=== PATIENT | male | born 1940 | race Caucasian/White ===

== ENCOUNTER 2017-07-11 09:30 | Emergency (ER) | payer OTHER ==
[~2017-07-11] VITALS: Ht 177.8 cm; Wt 99.5 kg
[~2017-07-11 09:30] MED LIST: ARIC5TAB PO; ASPI325T PO; ATOR40TA49 PO; BOTU100P IM; C-50TAB2; FIORIC PO; GLIP10TA6 PO; LASI20TA PO; LOSA50TA PO; MAGN400T19 PO; METO25 PO; NEUR600T PO; NOVO7030P2 SQ; OMEP20TA PO; PERC5TAB12 PO; SERT-132 PO; TAB-TAB PO; TRAZ300T2 PO; VITATAB11; WHIT15OI
[2017-07-11 09:40] VITALS: BP 109/58; PULSE 81; RESP 16; TEMP 97.5; O2SAT 95
[2017-07-11] MEDS ORDERED: SODIUM CHLORIDE 0.9% FLUSH 10 ML FLUSH IV FLUSH PRN (10:00)
--- NOTE | 2017-07-11 10:03 | PD ---
HPI Chief Complaint: Abdominal Pain Time Seen by Provider: 09:50 Travel History International Travel<30 days: No Contact w/Intl Traveler<30days: No Traveled to known affect area: No History of Present Illness HPI This patient complains of abdominal pain. He's had nausea and vomiting and diarrhea for 3-4 days. Location of abdominal pain is epigastrium. Severity is moderate. No alleviating factors. No exacerbating factors. Quality of the pain as a aching and cramping. Denies fever. He has no gallbladder. 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 PFSH Past Medical History Hx Anticoagulant Therapy: Yes (asa 81mg) Cardiovascular Problems: Yes (htn on meds, heart stent x 1) Diabetes: Yes (type 1) Hypertension: Yes Past Surgical History Appendectomy: Yes Cholecystectomy: Yes Coronary Stent: Yes Joint Replacement: Yes Tonsillectomy: Yes Social History Alcohol Use: Yes (OCC) Tobacco Use: No Substance Use: No Allergies-Medications (Allergen,Severity, Reaction): Coded Allergies: lisinopril (Unverified Adverse Reaction, Intermediate, COUGH, 07/11/17) Reported Meds & Prescriptions Reported Meds & Active Scripts Active Zofran (Ondansetron HCl) 4 Mg Tab 4 Mg PO Q6HR PRN Reported Lantus Inj (Insulin Glargine) 1,000 Unit/10 Ml Vial 22 Units SQ DAILY Sertraline (Sertraline HCl) 100 Mg Tab 100 Mg PO BID Omeprazole 20 Mg Tab 20 Mg PO DAILY Multivitamins (Multivitamin) 1 Each Tab.chew 1 Tab PO DAILY Mirtazapine 15 Mg Tab 15 Mg PO HS Metoprolol Tartrate 25 Mg Tab 12.5 Mg PO BID Magnesium Oxide 400 Mg Tab 400 Mg PO DAILY Losartan (Losartan Potassium) 100 Mg Tab 100 Mg PO DAILY Galantamine ER (Galantamine Hydrobromide) 16 Mg Caper 16 Mg PO DAILY Atorvastatin (Atorvastatin Calcium) 80 Mg Tab 80 Mg PO HS Aspirin EC (Aspirin) 81 Mg Tabdr 81 Mg PO DAILY Alfuzosin ER 24 HR 10 Mg Tab 10 Mg PO DAILY Review of Systems General / Constitutional: No: Fever Eyes: No: Visual changes HENT: No: Headaches Cardiovascular: No: Chest Pain or Discomfort Respiratory: No: Shortness of Breath Gastrointestinal: Positive: Nausea, Vomiting, Diarrhea, Abdominal Pain Genitourinary: No: Dysuria Musculoskeletal: No: Pain Skin: No Rash Neurologic: No: Weakness Psychiatric: No: Depression Endocrine: No: Polydipsia Hematologic/Lymphatic: No: Easy Bruising Physical Exam Narrative GENERAL: Well-nourished, well-developed patient in no apparent distress. SKIN: Focused skin assessment reveals no rash and nodules. Skin is Warm and dry. HEAD: Atraumatic. Normocephalic. EYES: Pupils equal and round. No scleral icterus. No injection or drainage. ENT: No nasal bleeding or discharge. Mucous membranes pink and moist. NECK: Trachea midline. No JVD. CARDIOVASCULAR: Regular rate and rhythm. No murmur appreciated. RESPIRATORY: No accessory muscle use. Clear to auscultation. Breath sounds equal bilaterally. GASTROINTESTINAL: Abdomen soft, mild epigastric tenderness without rebound or guarding , nondistended. Hepatic and splenic margins not palpable. MUSCULOSKELETAL: No obvious deformities. No clubbing. No cyanosis. Mild symmetric edema of the feet and lower legs . NEUROLOGICAL: Awake and alert. No obvious cranial nerve deficits. Motor grossly within normal limits. Normal speech. PSYCHIATRIC: Appropriate mood and affect; insight and judgment normal. Data Data Last Documented VS Vital Signs Date Time Temp Pulse Resp B/P (MAP) Pulse Ox O2 Delivery O2 Flow Rate FiO2 07/11/17 10:56 76 16 107/59 (75) 96 Room Air 07/11/17 09:40 97.5 Orders Orders Complete Blood Count With Diff (07/11/17 09:58) Comprehensive Metabolic Panel (07/11/17 09:58) Lipase (07/11/17 09:58) Prothrombin Time / Inr (Pt) (07/11/17 09:58) Act Partial Throm Time (Ptt) (07/11/17 09:58) Ct Abd/Pel W/O Iv Contrast (07/11/17 09:58) Iv Access Insert/Monitor (07/11/17 09:58) NPO (07/11/17 09:58) Sodium Chloride 0.9% Flush (Ns Flush) (07/11/17 10:00) Ondansetron Inj (Zofran Inj) (07/11/17 10:30) Radiology Film Requests (07/11/17 ) Labs Laboratory Tests Test 07/11/17 10:05 White Blood Count 13.9 TH/MM3 Red Blood Count 4.55 MIL/MM3 Hemoglobin 13.4 GM/DL Hematocrit 40.2 % Mean Corpuscular Volume 88.3 FL Mean Corpuscular Hemoglobin 29.5 PG Mean Corpuscular Hemoglobin Concent 33.4 % Red Cell Distribution Width 12.6 % Platelet Count 247 TH/MM3 Mean Platelet Volume 7.8 FL Neutrophils (%) (Auto) 77.5 % Lymphocytes (%) (Auto) 11.4 % Monocytes (%) (Auto) 5.4 % Eosinophils (%) (Auto) 1.9 % Basophils (%) (Auto) 3.8 % Neutrophils # (Auto) 10.7 TH/MM3 Lymphocytes # (Auto) 1.6 TH/MM3 Monocytes # (Auto) 0.8 TH/MM3 Eosinophils # (Auto) 0.3 TH/MM3 Basophils # (Auto) 0.5 TH/MM3 CBC Comment DIFF FINAL Differential Comment Prothrombin Time 11.0 SEC Prothromb Time International Ratio 1.0 RATIO Activated Partial Thromboplast Time 37.6 SEC Blood Urea Nitrogen 34 MG/DL Creatinine 3.70 MG/DL Random Glucose 163 MG/DL Total Protein 8.4 GM/DL Albumin 4.1 GM/DL Calcium Level 9.0 MG/DL Alkaline Phosphatase 192 U/L Aspartate Amino Transf (AST/SGOT) 23 U/L Alanine Aminotransferase (ALT/SGPT) 33 U/L Total Bilirubin 0.8 MG/DL Sodium Level 139 MEQ/L Potassium Level 3.6 MEQ/L Chloride Level 107 MEQ/L Carbon Dioxide Level 20.2 MEQ/L Anion Gap 12 MEQ/L Estimat Glomerular Filtration Rate 16 ML/MIN Lipase 88 U/L MDM Medical Decision Making Medical Screen Exam Complete: Yes Emergency Medical Condition: Yes Medical Record Reviewed: Yes Differential Diagnosis Differential diagnosis includes pancreatitis, biliary colic, hepatitis, GERD, peptic ulcer disease. Narrative Course I have reviewed the patient's electronic medical record. His last visit was January 2016 for chest wall contusion IV placed CBC shows minimal nonspecific leukocytosis of 13,000 metabolic profile shows renal failure which is chronic per patient. Sodium and potassium are normal LFT's are normal lipase is normal CT of abdomen and pelvis was ordered without IV contrast as he has history of chronic renal insufficiency. Patient has a soft benign nontender abdomen. He has no abdominal pain now. In fact I think abdominal pain is a very minor part of this. He mostly is complaining of vomiting and diarrhea. He is completely soft asleep when I recheck him. I suspect the CT findings of choledocholithiasis are incidental to his symptom presentation. However, I did make a CD copy of his disc and gave it to the patient. [facility] to consider things like ERCP etc. He has no pain or jaundice or fever and has soft benign nontender abdomen. I don't think he needs emergent admission for this at this time. Zofran prescribed Diagnosis Primary Impression: Nausea vomiting and diarrhea Additional Impressions: Abdominal pain Qualified Codes: R10.13 - Epigastric pain Choledocholithiasis Additional Instructions: The patient was advised to follow up with their physician and return if they worsen. Med/Other Pt SpecificInfo: Prescription(s) given Scripts Ondansetron (Zofran) 4 Mg Tab 4 MG PO Q6HR Y for NAUSEA OR VOMITING, #12 TAB 0 Refills Prov: Thomas Siegel MD 07/11/17 Disposition: 01 DISCHARGE HOME Condition: Stable Thomas Siegel MD Jul 11, 2017 10:03
[2017-07-11 10:10] LABS: AUTOMATED NEUTROPHIL # 10.7 TH/MM3 (1.8-7.7); BASOPHIL # 0.5 TH/MM3 (0-0.2); BASOPHIL % 3.8 % (0.0-2.0); EOSINOPHIL # 0.3 TH/MM3 (0-0.4); EOSINOPHIL % 1.9 % (0.0-4.0); HEMATOCRIT 40.2 % (39.0-51.0); LYMPH % 11.4 % (9.0-44.0); LYMPHOCYTE # 1.6 TH/MM3 (1.0-4.8); MEAN CELL VOLUME 88.3 FL (80.0-100.0); MEAN CORPUSCULAR HEMOGLOBIN 29.5 PG (27.0-34.0); MEAN CORPUSCULAR HGB CONC 33.4 % (32.0-36.0); MONO % 5.4 % (0.0-8.0); NEUT % 77.5 % (16.0-70.0); PLATELET COUNT 247 TH/MM3 (150-450); RED BLOOD COUNT 4.55 MIL/MM3 (4.50-5.90); RED CELL DISTRIBUTION WIDTH 12.6 % (11.6-17.2); WHITE BLOOD COUNT 13.9 TH/MM3 (4.0-11.0)
[2017-07-11 10:11] LABS: HEMO FLAGS DIFF FINAL
[2017-07-11 10:19] LABS: CHLORIDE 107 MEQ/L (98-107); POTASSIUM 3.6 MEQ/L (3.5-5.1); SODIUM (NA) 139 MEQ/L (136-145)
[2017-07-11 10:23] LABS: ANION GAP 12 MEQ/L (5-15); APTT (PATIENT) 37.6 SEC (24.3-30.1); BICARBONATE 20.2 MEQ/L (21.0-32.0); BLOOD UREA NITROGEN 34 MG/DL (7-18)
[2017-07-11 10:25] LABS: ALT (GPT) 33 U/L (12-78)
[2017-07-11 10:26] LABS: AST (GOT) 23 U/L (15-37); GLOMERULAR FILTRATION RATE 16 ML/MIN (>89)
[2017-07-11 10:27] LABS: TOTAL BILIRUBIN ADULT 0.8 MG/DL (0.2-1.0)
[2017-07-11 10:28] LABS: ALKALINE PHOSPHATASE 192 U/L (45-117)
[2017-07-11] MEDS ORDERED: ONDANSETRON HCL 4 MG/2 ML VIAL IVP ONE (10:30)
[2017-07-11] MEDS ORDERED: SERT-129 PO (10:41)
[2017-07-11] MEDS ORDERED: GALA16CA PO (10:41)
[2017-07-11] MEDS ORDERED: LOSA100T PO (10:41)
[2017-07-11] MEDS ORDERED: ATOR1TAB18 PO (10:41)
[2017-07-11] MEDS ORDERED: MAGN400T2 PO (10:41)
[2017-07-11] MEDS ORDERED: MIRTA15 PO (10:41)
[2017-07-11] MEDS ORDERED: MULT-159 PO (10:41)
[2017-07-11] MEDS ORDERED: OMEP20TA PO (10:41)
[2017-07-11] MEDS ORDERED: METO25TA3 PO (10:41)
[2017-07-11] MEDS ORDERED: ASPI81TA11 PO (10:41)
[2017-07-11] MEDS ORDERED: ALFU10TA2 PO (10:41)
[2017-07-11] MEDS ORDERED: LANTUS2P SQ (10:42)
--- NOTE | 2017-07-11 10:43 | RADRPT ---
EXAM DATE/TIME: 07/11/2017 10:16 [facility] COMPARISON: CT THORAX W/O CONTRAST, February 05, 2016, 19:19. INDICATIONS : Epigastric pain with nausea, vomiting, and diarrhea. ORAL CONTRAST: No oral contrast ingested. RADIATION DOSE: 21.24 CTDIvol (mGy) MEDICAL HISTORY : Hypertension. Cardiovascular disease Renal failure, chronic.Diabetes. SURGICAL HISTORY : Coronary artery stent. Appendectomy.Cholecystectomy. ENCOUNTER: Initial ACUITY: 4 - 6 days PAIN SCALE: 6/10 LOCATION: upper quadrant TECHNIQUE: Volumetric scanning of the abdomen and pelvis was performed. Using automated exposure control and ad justment of the mA and/or kV according to patient size, radiation dose was kept as low as reasonably achievable to obtain optimal diagnostic quality images. DICOM format image data is available electro nically for review and comparison. FINDINGS: LOWER LUNGS: There is linear density seen at the medial right lung base likely related to scarring. LIVER: There is air within the liver. It is difficult to determine if this is portal vein or biliary air wit hin the liver itself, however, there is a small focus within the common bile duct making biliary duct air much more likely. There is no pneumatosis seen in the bowel. The common bile duct is dilated at 1.9 cm. There appear to be 2 high density area seen in the distal common bile duct measuring 1.2 and 1.8 cm likely related to choledocholithiasis. No focal hepatic lesion is seen. SPLEEN: Normal size without lesion. There is a small splenule at the splenic hilum. PANCREAS: Within normal limits. KIDNEYS: Normal in size and shape. There is no mass, stone, or hydronephrosis. ADRENAL GLANDS: Within normal limits. VASCULAR: There is no aortic aneurysm. Scattered atherosclerotic calcifications are present. BOWEL/MESENTERY: There are scattered colonic diverticula. No significant inflammatory change is seen. The patient has a RIVERBOAT MASTER shunt in place with the shunt tubing in the right lower quadrant. ABDOMINAL WALL: There appears to be mesh in the right lower quadrant. RETROPERITONEUM: There is no lymphadenopathy. BLADDER: No wall thickening or mass. REPRODUCTIVE: Prostatic calcifications are present. INGUINAL: There is no lymphadenopathy or hernia. MUSCULOSKELETAL: There is degenerative change in the lumbar spine. CONCLUSION: 1. Common bile duct dilatation with 2 suspected stones in the distal common bile duct. There is also air within the liver which is almost certainly within the biliary system. 2. Scattered colonic diverticula. 3. RIVERBOAT MA[employer] shunt tubing. Gregorio Griffin MD on July 11, 2017 at 10:32 Board Certified Radiologist. This report was verified electronically.
[2017-07-11 10:56] VITALS: BP 107/59; PULSE 76; RESP 16; O2SAT 96
[2017-07-11] MEDS ORDERED: ZOFR4TAB PO (11:20)
[2017-07-11 11:56] VITALS: BP 111/60; PULSE 72; RESP 16; O2SAT 95
== END 2017-07-11 12:24 | disposition home or self-care (01) ==
LOC: PHED 09:30
DX: R11.2 Nausea with vomiting, unspecified (principal); R10.13 Epigastric pain; K80.50 Calculus of bile duct without cholangitis or cholecystitis without obstruction; R19.7 Diarrhea, unspecified; D72.829 Elevated white blood cell count, unspecified; N18.9 Chronic kidney disease, unspecified; E10.9 Type 1 diabetes mellitus without complications; Z79.4 Long term (current) use of insulin; Z79.82 Long term (current) use of aspirin; Z86.79 Personal history of other diseases of the circulatory system; Z87.820 Personal history of traumatic brain injury
CPT/HCPCS: 74176; 80053; 83690; 85025; 85610; 85730; 96374; 99285; J2405

== ENCOUNTER 2017-08-04 16:46 | Inpatient (IN) | payer OTHER ==
[~2017-08-04] VITALS: Ht 165.1 cm; Wt 99.2 kg
[~2017-08-04 16:46] MED LIST changes: +ALFU10TA2 PO; -ARIC5TAB PO; -ASPI325T PO; +ASPI81TA11 PO; +ATOR1TAB18 PO; -ATOR40TA49 PO; -BOTU100P IM; -C-50TAB2; -FIORIC PO; +GALA16CA PO; -GLIP10TA6 PO; +LANTUS2P SQ; -LASI20TA PO; +LOSA100T PO; -LOSA50TA PO; -MAGN400T19 PO; +MAGN400T2 PO; -METO25 PO; +METO25TA3 PO; +MIRTA15 PO; +MULT-159 PO; -NEUR600T PO; -NOVO7030P2 SQ; -PERC5TAB12 PO; +SERT-129 PO; -SERT-132 PO; -TAB-TAB PO; -TRAZ300T2 PO; -VITATAB11; -WHIT15OI; +ZOFR4TAB PO
[2017-08-04 17:05] VITALS: BP 118/56; PULSE 77; RESP 16; TEMP 98.5; O2SAT 98
--- NOTE | 2017-08-04 18:12 | PD ---
HPI Chief Complaint: GI Complaint Time Seen by Provider: 17:56 Travel History International Travel<30 days: No Contact w/Intl Traveler<30days: No Traveled to known affect area: No History of Present Illness HPI This 76-year-old man who presents emergency Department with nausea vomiting trouble swallowing abdominal pain diarrhea and feeling poorly. Symptoms been ongoing for month or so. He is in the emergency department on July 11. He is having abdominal pain and vomiting at that point. Labs showed some chronic kidney disease, mildly abnormal alkaline phosphatase, normal lipase. CT scan showed choledocholithiasis with previous cholecystectomy. BUN 12 that time and [facility] He's been having persistent nausea and vomiting. He describes difficulty swallowing and vomiting almost as soon as he tries to swallow with some chest discomfort. He' s also had intermittent right upper quadrant pains and pains in his left scapula. [facility] and had labs done yesterday that showed that his AST and ALT had been moderately elevated with further elevation of his alkaline phosphatase. T bili also went to 1.5 from 0.8. Given the choledocholithiasis, they discussed with her GI doctor and they're recommended to present to the emergency department for evaluation and possible ERCP. 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 "TBI" from multiple concussions playing football in the remote past Social History Alcohol Use: Yes (OCC) Tobacco Use: No (FORMER) Allergies-Medications (Allergen,Severity, Reaction): Coded Allergies: lisinopril (Unverified Allergy, Intermediate, COUGH, 08/04/17) Reported Meds & Prescriptions Reported Meds & Active Scripts Active Zofran (Ondansetron HCl) 4 Mg Tab 4 Mg PO Q6HR PRN Reported Lantus Inj (Insulin Glargine) 1,000 Unit/10 Ml Vial 22 Units SQ DAILY Sertraline (Sertraline HCl) 100 Mg Tab 100 Mg PO BID Omeprazole 20 Mg Tab 20 Mg PO DAILY Multivitamins (Multivitamin) 1 Each Tab.chew 1 Tab PO DAILY Mirtazapine 15 Mg Tab 15 Mg PO HS Metoprolol Tartrate 25 Mg Tab 12.5 Mg PO BID Magnesium Oxide 400 Mg Tab 400 Mg PO DAILY Losartan (Losartan Potassium) 100 Mg Tab 100 Mg PO DAILY Galantamine ER (Galantamine Hydrobromide) 16 Mg Caper 16 Mg PO DAILY Atorvastatin (Atorvastatin Calcium) 80 Mg Tab 80 Mg PO HS Aspirin EC (Aspirin) 81 Mg Tabdr 81 Mg PO DAILY Alfuzosin ER 24 HR 10 Mg Tab 10 Mg PO DAILY Review of Systems Except as stated in HPI: all other systems reviewed are Neg Physical Exam Narrative GENERAL: 76-year-old man, generally well-appearing, no acute distress. SKIN: Focused skin assessment warm/dry. HEAD: Atraumatic. Normocephalic. EYES: Pupils equal and round. No scleral icterus. No injection or drainage. ENT: No nasal bleeding or discharge. Mucous membranes pink and moist. NECK: Trachea midline. No JVD. CARDIOVASCULAR: Regular rate and rhythm. No murmur appreciated. RESPIRATORY: No accessory muscle use. Clear to auscultation. Breath sounds equal bilaterally. GASTROINTESTINAL: Abdomen soft, non-tender, nondistended. Hepatic and splenic margins not palpable. MUSCULOSKELETAL: Abdomen is obese and soft. No significant tenderness. No rebound or guarding. NEUROLOGICAL: Awake and alert. No obvious cranial nerve deficits. Motor grossly within normal limits. Normal speech. PSYCHIATRIC: Appropriate mood and affect; insight and judgment normal. Data Data Last Documented VS Vital Signs Date Time Temp Pulse Resp B/P (MAP) Pulse Ox O2 Delivery O2 Flow Rate FiO2 08/04/17 17:05 98.5 77 16 118/56 (76) 98 Orders Orders Complete Blood Count With Diff (08/04/17 18:17) Comprehensive Metabolic Panel (08/04/17 18:17) Iv Access Insert/Monitor (08/04/17 18:17) Admit Order (Ed Use Only) (08/04/17 ) Consult Gastroenterology (08/04/17 ) Labs Laboratory Tests Test 08/04/17 18:30 White Blood Count 9.4 TH/MM3 Red Blood Count 3.79 MIL/MM3 Hemoglobin 11.3 GM/DL Hematocrit 33.6 % Mean Corpuscular Volume 88.8 FL Mean Corpuscular Hemoglobin 29.8 PG Mean Corpuscular Hemoglobin Concent 33.5 % Red Cell Distribution Width 13.1 % Platelet Count 241 TH/MM3 Mean Platelet Volume 8.4 FL Neutrophils (%) (Auto) 72.1 % Lymphocytes (%) (Auto) 18.1 % Monocytes (%) (Auto) 5.4 % Eosinophils (%) (Auto) 3.9 % Basophils (%) (Auto) 0.5 % Neutrophils # (Auto) 6.8 TH/MM3 Lymphocytes # (Auto) 1.7 TH/MM3 Monocytes # (Auto) 0.5 TH/MM3 Eosinophils # (Auto) 0.4 TH/MM3 Basophils # (Auto) 0.0 TH/MM3 CBC Comment DIFF FINAL Differential Comment Blood Urea Nitrogen 23 MG/DL Creatinine 2.30 MG/DL Random Glucose 224 MG/DL Total Protein 7.3 GM/DL Albumin 3.1 GM/DL Calcium Level 8.7 MG/DL Alkaline Phosphatase 724 U/L Aspartate Amino Transf (AST/SGOT) 94 U/L Alanine Aminotransferase (ALT/SGPT) 108 U/L Total Bilirubin 0.8 MG/DL Sodium Level 141 MEQ/L Potassium Level 4.0 MEQ/L Chloride Level 110 MEQ/L Carbon Dioxide Level 22.7 MEQ/L Anion Gap 8 MEQ/L Estimat Glomerular Filtration Rate 28 ML/MIN [facility] Medical Decision Making Medical Screen Exam Complete: Yes Emergency Medical Condition: Yes Medical Record Reviewed: Yes Interpretation(s) Outpatient labs show labs from August 03, AST 188, ALT 131, alkaline phosphatase a 43, T bili 1.5 creatinine improved to 1.8 LABS: CBC unremarkable. Mildly elevated AST ALT and alkaline phosphatase. Total bili 0.8 Differential Diagnosis Choledocholithiasis, cholangitis, esophageal dysmotility or achalasia, other Narrative Course Medical decision making Is a 76-year-old man who presents to the emergency department with about a month and a half of nausea vomiting, loose stools, feeling poorly, some low- grade fevers yesterday, and known choledocholithiasis. Concern for need for procedure, cholangitis. He looks well and does not appear septic with infection. His vomiting immediately with swallowing almost sound suggestive of an esophageal dysmotility problem or obstruction. We'll check labs, discussed with GI, likely admission for procedure. Physician Communication Physician Communication Spoke with Dr. Moreno, recommend ERCP, transferr to the main. Diagnosis Primary Impression: Choledocholithiasis Admitting Information Admitting Physician Requests: Admit Marcelo Fox MD Aug 04, 2017 18:12
[2017-08-04 18:42] LABS: AUTOMATED NEUTROPHIL # 6.8 TH/MM3 (1.8-7.7); BASOPHIL % 0.5 % (0.0-2.0); EOSINOPHIL # 0.4 TH/MM3 (0-0.4); EOSINOPHIL % 3.9 % (0.0-4.0); HEMATOCRIT 33.6 % (39.0-51.0); HEMO FLAGS DIFF FINAL; LYMPH % 18.1 % (9.0-44.0); LYMPHOCYTE # 1.7 TH/MM3 (1.0-4.8); MEAN CELL VOLUME 88.8 FL (80.0-100.0); MEAN CORPUSCULAR HEMOGLOBIN 29.8 PG (27.0-34.0); MEAN CORPUSCULAR HGB CONC 33.5 % (32.0-36.0); MONO % 5.4 % (0.0-8.0); NEUT % 72.1 % (16.0-70.0); PLATELET COUNT 241 TH/MM3 (150-450); RED BLOOD COUNT 3.79 MIL/MM3 (4.50-5.90); RED CELL DISTRIBUTION WIDTH 13.1 % (11.6-17.2); WHITE BLOOD COUNT 9.4 TH/MM3 (4.0-11.0)
[2017-08-04 18:52] LABS: CHLORIDE 110 MEQ/L (98-107); SODIUM (NA) 141 MEQ/L (136-145)
[2017-08-04 18:56] LABS: ANION GAP 8 MEQ/L (5-15); BICARBONATE 22.7 MEQ/L (21.0-32.0); BLOOD UREA NITROGEN 23 MG/DL (7-18)
[2017-08-04 18:59] LABS: ALT (GPT) 108 U/L (12-78); AST (GOT) 94 U/L (15-37); GLOMERULAR FILTRATION RATE 28 ML/MIN (>89)
[2017-08-04 19:01] LABS: TOTAL BILIRUBIN ADULT 0.8 MG/DL (0.2-1.0)
[2017-08-04 19:02] LABS: ALKALINE PHOSPHATASE 724 U/L (45-117)
[2017-08-04 20:27] VITALS: BP 145/73; PULSE 66; RESP 18; TEMP 97.7; O2SAT 100
[2017-08-04] MEDS ORDERED: NALOXONE HCL 0.4 MG/ML AMP IV PUSH PRN (20:30)
[2017-08-04] MEDS ORDERED: SODIUM CHLORIDE 0.9% FLUSH 10 ML FLUSH IV FLUSH PRN (20:30)
[2017-08-04] MEDS ORDERED: DEXTROSE 50% IN WATER 50 ML VIAL(D50) IV PUSH PRN (20:30)
[2017-08-04] MEDS ORDERED: ONDANSETRON HCL 4 MG/2 ML VIAL IV PUSH PRN (20:30)
[2017-08-04] MEDS ORDERED: GLUCAGON 1 MG/ML VIAL OTHER PRN (20:30)
[2017-08-04] MEDS: DEXT 5%-NACL 0.45% 1000 ML INJ 1,000 ML IV SCH (22:33)
[2017-08-04 22:34] VITALS: BP 154/74; PULSE 62; RESP 20; TEMP 95.6; O2SAT 98
[2017-08-04] MEDS: HYDROmorphone HCL PF 1 MG/ML VIAL IV PUSH PRN (22:34)
[2017-08-04] MEDS: SODIUM CHLORIDE 0.9% FLUSH 10 ML FLUSH IV FLUSH SCH (22:34)
[2017-08-05] VITALS (7 sets, daily range): BP systolic 139–181; BP diastolic 63–94; PULSE 59–70; RESP 16–19; TEMP 96–97.5; O2SAT 95–99
[2017-08-05] MEDS: HYDROmorphone HCL PF 1 MG/ML VIAL IV PUSH PRN ×4 (02:52→21:38)
--- NOTE | 2017-08-05 03:18 | HHI.HP ---
[facility] [place] [facility] Admission Diagnosis Choledocholithiasis Diagnoses: Chief Complaint: n/v/d Travel History International Travel<30 Days: No Contact w/Intl Traveler <30 Da: No Traveled to Known Affected Are: No History of Present Illness Written by MARKIE Arcos acting as scribe for [Brook] on 08/05/17 at 03: 07. 76 y/o male with a history of TBI with shunt placement,HTN, CKD, Neuropathy, CAD , TIA, sleep apnea, DM, and HLD presented to the ED with complaints of nausea and vomiting. He states for the last 2 weeks he has been having nausea and vomiting with eating or drinking. He also states he is having diarrhea, denies any black or red colored stools. [facility] is a disabled [facility] and told him he had a fever, unknown how high. He does complain of chills. He also states he has been falling down a lot due to dizziness and last time his shunt was checked was January 2017. He is unsure if he is falling more than normal. He also complains of urinary frequency at times , difficulty swallowing liquids and solids (for 2 months), he has had esophageal dilation in the past. He denies any chest pain, or sob. Review of Systems Except as stated in HPI: all other systems reviewed are Neg Past Family Social History Past Medical History TBI with shunt placement HTN CKD Neuropathy DM HLD Sleep apnea Melanoma on face CAD TIA Past Surgical History CERTIFIED ANESTHESIOLOGIST ASSISTANT shunt placement Cardiac stents Right knee replacement x 4 Right rotator cuff surgery Bilateral wrist surgery Back surgery Right Bursa removal Appendectomy Reported Medications Reported Meds & Active Scripts Active Zofran (Ondansetron HCl) 4 Mg Tab 4 Mg PO Q6HR PRN Reported Lantus Inj (Insulin Glargine) 1,000 Unit/10 Ml Vial 22 Units SQ DAILY Sertraline (Sertraline HCl) 100 Mg Tab 100 Mg PO BID Omeprazole 20 Mg Tab 20 Mg PO DAILY Multivitamins (Multivitamin) 1 Each Tab.chew 1 Tab PO DAILY Mirtazapine 15 Mg Tab 15 Mg PO HS Metoprolol Tartrate 25 Mg Tab 12.5 Mg PO BID Magnesium Oxide 400 Mg Tab 400 Mg PO DAILY Losartan (Losartan Potassium) 100 Mg Tab 100 Mg PO DAILY Galantamine ER (Galantamine Hydrobromide) 16 Mg Caper 16 Mg PO DAILY Atorvastatin (Atorvastatin Calcium) 80 Mg Tab 80 Mg PO HS Aspirin EC (Aspirin) 81 Mg Tabdr 81 Mg PO DAILY Alfuzosin ER 24 HR 10 Mg Tab 10 Mg PO DAILY Allergies: Coded Allergies: lisinopril (Unverified Allergy, Intermediate, COUGH, 08/04/17) Active Ordered Medications Current Medications Medications (Trade) Dose Ordered Sig/Mino Route Start Time Stop Time Status Last Admin (NS Flush) 2 ml UNSCH PRN IV FLUSH 08/04/17 20:30 (NS Flush) 2 ml BID IV FLUSH 08/04/17 21:00 08/04/17 22:34 (Narcan Inj) 0.4 mg UNSCH PRN IV PUSH 08/04/17 20:30 (Dilaudid Pf Inj) 0.2 mg Q4H PRN IV PUSH 08/04/17 20:30 08/05/17 02:52 (Zofran Inj) 4 mg Q6HR PRN IV PUSH 08/04/17 20:30 Dextrose/Sodium Chloride 1,000 ml @ 42 mls/hr [id number] IV 08/04/17 21:00 08/04/17 22:33 (D50w (Vial) Inj) 50 ml UNSCH PRN IV PUSH 08/04/17 20:30 (Glucagon Inj) 1 mg UNSCH PRN OTHER 08/04/17 20:30 (Flu (Quadrivalent) Vaccine Inj) 0.5 ml ONCE ONCE IM 08/06/17 10:00 08/06/17 10:01 Family History Patient denies any family history. Social History Patient denies any tobacco, alcohol, and illicit drug use. Physical Exam Vital Signs Vital Signs Date Time Temp Pulse Resp B/P (MAP) Pulse Ox O2 Delivery O2 Flow Rate FiO2 08/05/17 00:00 96.5 65 16 148/67 (94) 95 08/04/17 22:34 95.6 62 20 154/74 (100) 98 08/04/17 20:27 97.7 66 18 145/73 (97) 100 Room Air 08/04/17 17:05 98.5 77 16 118/56 (76) 98 Physical Exam GENERAL: This is a well-nourished, patient in nad SKIN: No rashes, ecchymoses or lesions. Cool and dry. HEAD: Atraumatic. Normocephalic EYES: Pupils equal round and reactive. ENT: Nose without bleeding, purulent drainage or septal hematoma. Airway patent. NECK: Trachea midline. No JVD or lymphadenopathy. CARDIOVASCULAR: Regular rate and rhythm without murmurs, gallops, or rubs. RESPIRATORY: Clear to auscultation. Breath sounds equal bilaterally. No wheezes , rales, or rhonchi. GASTROINTESTINAL: Abdomen soft, RUQ and epigastric tenderness, nondistended. MUSCULOSKELETAL: Extremities without clubbing, cyanosis, or edema. No calf tenderness. NEUROLOGICAL: Awake and alert. Motor and sensory grossly within normal limits. Normal speech. Laboratory Laboratory Tests Test 08/04/17 18:30 White Blood Count 9.4 Red Blood Count 3.79 Hemoglobin 11.3 Hematocrit 33.6 Mean Corpuscular Volume 88.8 Mean Corpuscular Hemoglobin 29.8 Mean Corpuscular Hemoglobin Concent 33.5 Red Cell Distribution Width 13.1 Platelet Count 241 Mean Platelet Volume 8.4 Neutrophils (%) (Auto) 72.1 Lymphocytes (%) (Auto) 18.1 Monocytes (%) (Auto) 5.4 Eosinophils (%) (Auto) 3.9 Basophils (%) (Auto) 0.5 Neutrophils # (Auto) 6.8 Lymphocytes # (Auto) 1.7 Monocytes # (Auto) 0.5 Eosinophils # (Auto) 0.4 Basophils # (Auto) 0.0 CBC Comment DIFF FINAL Differential Comment Blood Urea Nitrogen 23 Creatinine 2.30 Random Glucose 224 Total Protein 7.3 Albumin 3.1 Calcium Level 8.7 Alkaline Phosphatase 724 Aspartate Amino Transf (AST/SGOT) 94 Alanine Aminotransferase (ALT/SGPT) 108 Total Bilirubin 0.8 Sodium Level 141 Potassium Level 4.0 Chloride Level 110 Carbon Dioxide Level 22.7 Anion Gap 8 Estimat Glomerular Filtration Rate 28 Result Diagram: 08/04/17182908/04/171829 Caprini VTE Risk Assessment Caprini VTE Risk Assessment: Mod/High Risk (score >= 2) Caprini Risk Assessment Model Point Value = 1 Point Value = 2 Point Value = 3 Point Value = 5 Age 41-60 Minor surgery BMI > 25 kg/m2 Swollen legs Varicose veins or History of unexplained or recurrent spontaneous Oral contraceptives or hormone replacement Sepsis (< 1 month) Serious lung disease, including pneumonia (< 1 month) Abnormal pulmonary function Acute myocardial infarction Congestive heart failure (< 1 month) History of inflammatory bowel disease Medical patient at bed rest Age 61-74 Arthroscopic surgery Major open surgery (> 45 min) Laparoscopic surgery (> 45 min) Malignancy Confined to bed (> 72 hours) Immobilizing plaster cast Central venous access Age >= 75 History of VTE Family history of VTE Factor V Leiden Prothrombin [id number] Lupus anticoagulant Anticardiolipin antibodies Elevated serum homocysteine Heparin-induced thrombocytopenia Other congenital or acquired thrombophilia Stroke (< 1 month) Elective arthroplasty Hip, pelvis, or leg fracture Acute spinal cord injury (< 1 month) Prophylaxis Regimen Total Risk Factor Score Risk Level Prophylaxis Regimen 0-1 Low Early ambulation 2 Moderate Order ONE of the following: *Sequential Compression Device (SCD) *Heparin 5000 units SQ BID 3-4 Higher Order ONE of the following medications: *Heparin 5000 units SQ TID *Enoxaparin/Lovenox 40 mg SQ daily (WT < 150 kg, CrCl > 30 mL/min) *Enoxaparin/Lovenox 30 mg SQ daily (WT < 150 kg, CrCl > 10-29 mL/min) *Enoxaparin/Lovenox 30 mg SQ BID (WT < 150 kg, CrCl > 30 mL/min) AND/OR *Sequential Compression Device (SCD) 5 or more Highest Order ONE of the following medications: *Heparin 5000 units SQ TID (Preferred with Epidurals) *Enoxaparin/Lovenox 40 mg SQ daily (WT < 150 kg, CrCl > 30 mL/min) *Enoxaparin/Lovenox 30 mg SQ daily (WT < 150 kg, CrCl > 10-29 mL/min) *Enoxaparin/Lovenox 30 mg SQ BID (WT < 150 kg, CrCl > 30 mL/min) AND *Sequential Compression Device (SCD) Assessment and Plan Problem List: (1) Choledocholithiasis ICD Code: K80.50 - Calculus of bile duct without cholangitis or cholecystitis without obstruction Status: Acute (2) HTN (hypertension) ICD Code: I10 - Essential (primary) hypertension Status: Chronic (3) Diabetes ICD Code: E11.9 - Type 2 diabetes mellitus without complications Status: Chronic (4) Fall ICD Code: W19.XXXA - Unspecified fall, initial encounter Status: Acute Assessment and Plan 76 y/o male with a history of TBI with shunt placement, HTN, CKD, Neuropathy, DM , BPH, and HLD presented to the ED with complaints of nausea and vomiting. Choledocholithiasis, RUQ pain, with transaminitis AST 94, ALT 108 -Consult GI, Dr. Moreno plans for ERCP in AM -Abdominal US ordered -Lipase ordered -Dilaudid IV for pain management Falls, history of CERTIFIED ANESTHESIOLOGIST ASSISTANT shunt placement at in [place] 01/2017 -CERTIFIED ANESTHESIOLOGIST ASSISTANT shunt series ordered; pt's abdominal pain is not too characteristic of CBD stone, would need to r/o shunt malposition, doubt shunt infection- pt also reports ongoing gait issues despite shunt placement in January 2017 -Will order neurology consult if shunt series is abnormal HTN, chronic -Reorder home medications, monitor vitals DM, chronic -Accu checks Ac/HS -Hold Lantus until patient is no longer npo DVT prophylaxis: SCDs GI prophylaxis: Protonix This note was transcribed by rhonda [Kiera Anthony]. I, Dr. Laura Doe personally performed the history, physical exam, and medical decision making; and confirmed the accuracy of the information in the transcribed note. Authenticated by Dr. Laura Doe on at 03:07. Discussed Condition With Patient Physician Certification 2 Midnight Certification Type: Admission for Inpatient Services Order for Inpatient Services The services are ordered in accordance with Medicare regulations or non- Medicare payer requirements, as applicable. In the case of services not specified as inpatient-only, they are appropriately provided as inpatient services in accordance with the 2-midnight benchmark. Estimated LOS (days): 2 days is the estimated time the patient will need to remain in the hospital, assuming treatment plan goals are met and no additional complications. Post-Hospital Plan: Home Problem Qualifiers (1) Fall: Qualified Codes: W19.XXXD - Unspecified fall, subsequent encounter Kiera Anthony Aug 05, 2017 03:18 Laura Doe MD Aug 05, 2017 11:15
[2017-08-05] MEDS: PANTOPRAZOLE SODIUM 40 MG VIAL IV PUSH SCH (04:16)
[2017-08-05] MEDS ORDERED: INSULIN HUMAN REGULAR 1,000 UNITS/10 ML VIAL SQ PRN (05:15)
[2017-08-05] MEDS ORDERED: CHLORHEXIDINE GLUCONATE 2 % 1 PACK (2 CLOTHS) TOPICAL PRN (05:15)
[2017-08-05] MEDS ORDERED: SODIUM CHLORID 0.9% 500 ML IV PRN (05:15)
[2017-08-05] MEDS ORDERED: POVIDONE IODINE 5% (ANTISEPSIS KIT) 4 APPLICATIONS EACH NARE PRN (05:15)
[2017-08-05 07:24] LABS: AUTOMATED NEUTROPHIL # 5.9 TH/MM3 (1.8-7.7); BASOPHIL # 0.1 TH/MM3 (0-0.2); BASOPHIL % 0.7 % (0.0-2.0); EOSINOPHIL # 0.5 TH/MM3 (0-0.4); EOSINOPHIL % 4.9 % (0.0-4.0); HEMATOCRIT 33.4 % (39.0-51.0); HEMO FLAGS DIFF FINAL; LYMPH % 25.6 % (9.0-44.0); LYMPHOCYTE # 2.5 TH/MM3 (1.0-4.8); MEAN CELL VOLUME 89.9 FL (80.0-100.0); MEAN CORPUSCULAR HEMOGLOBIN 30.5 PG (27.0-34.0); MEAN CORPUSCULAR HGB CONC 33.9 % (32.0-36.0); MONO % 7.4 % (0.0-8.0); NEUT % 61.4 % (16.0-70.0); PLATELET COUNT 218 TH/MM3 (150-450); RED BLOOD COUNT 3.72 MIL/MM3 (4.50-5.90); RED CELL DISTRIBUTION WIDTH 13.9 % (11.6-17.2); WHITE BLOOD COUNT 9.6 TH/MM3 (4.0-11.0)
[2017-08-05 07:43] LABS: ANION GAP 7 MEQ/L (5-15); BLOOD UREA NITROGEN 19 MG/DL (7-18); CHLORIDE 113 MEQ/L (98-107); GLOMERULAR FILTRATION RATE 33 ML/MIN (>89); POTASSIUM 4.4 MEQ/L (3.5-5.1); SODIUM (NA) 144 MEQ/L (136-145)
[2017-08-05 07:45] LABS: AST (GOT) 73 U/L (15-37)
[2017-08-05 07:50] LABS: ALKALINE PHOSPHATASE 694 U/L (45-117); ALT (GPT) 90 U/L (12-78); TOTAL BILIRUBIN ADULT 0.6 MG/DL (0.2-1.0)
[2017-08-05] MEDS: ASPIRIN EC 81 MG TABEC PO SCH (08:23)
[2017-08-05] MEDS ORDERED: PILL SPLITTER OTHER PRN (08:45)
[2017-08-05] MEDS: SODIUM CHLORIDE 0.9% FLUSH 10 ML FLUSH IV FLUSH SCH ×2 (09:00→21:00)
[2017-08-05] MEDS: MAGNESIUM OXIDE 400 MG TAB PO SCH (09:00)
[2017-08-05] MEDS: VITAMIN B CMPLX/VITC/FOLIC AC CAP PO SCH (09:00)
--- NOTE | 2017-08-05 09:43 | RADRPT ---
EXAM DATE/TIME: 08/05/2017 08:03 [facility] COMPARISON: No previous studies available for comparison. INDICATIONS : Abdominal pain. MEDICAL HISTORY : Hypercholesterolemia. Arthritis. CVA. Head trauma. Neuropathy. Coronary artery disease. HTN. Stage III renal failure. Skin cancer. Diabetes. Depression. Anticoagulant therapy, Apsirin 81mg. SURGICAL HISTORY : Tonsillectomy. Coronary artery stent. Cholecystectomy. Eyelid surgery. Brain shunt. Appendectomy. Rig ht knee replacement. ENCOUNTER: Initial ACUITY: 1 day PAIN SCORE: 4/10 LOCATION: Abdomen. MEASUREMENTS: LIVER: 14.7 cm length COMMON DUCT: 14 mm RIGHT KIDNEY: 9.6 x 5.6 x 6.0 cm LEFT KIDNEY: 10.8 x 5.3 x 5.7 cm SPLEEN: 9.9 cm length AORTA: 2.0cm maximal FINDINGS: LIVER: Normal echotexture without focal lesion or ductal dilatation. COMMON DUCT: Distended without evidence of discrete filling defect. GALLBLADDER: Status post cholecystectomy PANCREAS: Poorly visualized. RIGHT KIDNEY: No hydronephrosis, stone or mass. LEFT KIDNEY: No hydronephrosis, stone or mass. SPLEEN: No focal lesion. AORTA: Non aneurysmal. IVC: Within normal limits. CONCLUSION: 1. Dilated common bile duct and common hepatic duct without discrete filling defect. 2. Status post cholecystectomy. 3. Nonvisualization of the pancreas. 4. No other significant abnormality. Aramis Ram MD on August 05, 2017 at 9:38 Board Certified Radiologist. This report was verified electronically.
--- NOTE | 2017-08-05 09:47 | PD.CONS ---
HPI History of Present Illness This is a 76 year old male who was referred to the emergency room for fever, chills, abdominal pain with nausea, and vomiting and suspected choledocholithiasis. He is s/p cholecystectomy about two years ago. For the past 2 months, he has been having intermittent RUQ pain, described as a sharp pain, that radiates to his epigastric area and LUQ. He has associated nausea/ vomiting with nonbloody emesis, bloating, and occasional heartburn. He has also had intermittent fever and chills with this. His symptoms are related to food intake and therefore he has not been eating as much for fear of the pain. He has lost about 4 lbs. He has alternating constipation and diarrhea, but states this is chronic and he has always been like this. He can't remember his last colonoscopy, but states he is in the process of getting scheduled for one through the [place]. He was seen in the ER on 07/11/17 for these symptoms and found to have leukocytosis with WBC 13.9 and elevated alkaline phosphatase. CT scan abdomen and pelvis without iv contrast (07/11/17)---> Common bile duct dilatation with 2 suspected stones in the distal common bile duct. There is also air within the liver which almost certainly within the biliary system, scattered colonic diverticular, PHYSICS PROFESSOR shut tubing. He was discharged with instructions to follow up with GI. The patient has continued to have intermittent chills, fevers, nausea, vomiting, and abdominal pain. He had called the [facility] yesterday with subjective fever and chills and he was instructed to come to the emergency room for possible ERCP. (Deloris Black) PFSH Past Medical History Traumatic brain injury with shunt placement HTN CKD Neuropathy DM Hyperlipidemia Sleep apnea Melanoma on face CAD TIA Cholelithiasis/suspected choledocholithiasis Past Surgical History PHYSICS PROFESSOR shunt placement Cardiac stents Right knee replacement x 4 Right rotator cuff surgery Bilateral wrist surgery Back surgery Right Bursa removal Appendectomy Colonoscopy Cholecystectomy (Deloris Black) Coded Allergies: lisinopril (Unverified Allergy, Intermediate, COUGH, 08/04/17) Medications Allergies Coded Allergies Type Severity Reaction Last Updated Verified lisinopril Allergy Intermediate COUGH 08/04/17 No Active Scripts Medications Dose Route/Sig Max Daily Dose Days Date Category Zofran (Ondansetron HCl) 4 Mg Tab 4 Mg PO Q6HR PRN 07/11/17 Rx Lantus Inj (Insulin Glargine) 1,000 Unit/10 Ml Vial 22 Units SQ DAILY 07/11/17 Reported Sertraline (Sertraline HCl) 100 Mg Tab 100 Mg PO BID 07/11/17 Reported Omeprazole 20 Mg Tab 20 Mg PO DAILY 07/11/17 Reported Multivitamins (Multivitamin) 1 Each Tab.chew 1 Tab PO DAILY 07/11/17 Reported Mirtazapine 15 Mg Tab 15 Mg PO HS 07/11/17 Reported Metoprolol Tartrate 25 Mg Tab 12.5 Mg PO BID 07/11/17 Reported Magnesium Oxide 400 Mg Tab 400 Mg PO DAILY 07/11/17 Reported Losartan (Losartan Potassium) 100 Mg Tab 100 Mg PO DAILY 07/11/17 Reported Galantamine ER (Galantamine Hydrobromide) 16 Mg Caper 16 Mg PO DAILY 07/11/17 Reported Atorvastatin (Atorvastatin Calcium) 80 Mg Tab 80 Mg PO HS 07/11/17 Reported Aspirin EC (Aspirin) 81 Mg Tabdr 81 Mg PO DAILY 07/11/17 Reported Alfuzosin ER 24 HR 10 Mg Tab 10 Mg PO DAILY 07/11/17 Reported Family History Patient denies any family history. Social History Patient denies any tobacco Past ETOH use, none currently No illicit drug use. (Deloris Black) Review of Systems Constitutional: COMPLAINS OF: Fatigue, Fever, Weight loss, Chills, Change in appetite Respiratory: DENIES: Cough Cardiovascular: DENIES: Chest pain Gastrointestinal: COMPLAINS OF: Abdominal pain, Constipation, Diarrhea, Nausea , Vomiting, Swelling of Abdomen, Heartburn, DENIES: Black stools, Bloody stools , Hematemesis Musculoskeletal: COMPLAINS OF: Back pain, DENIES: Joint pain, Muscle aches Integumentary: DENIES: Jaundice Neurologic: DENIES: Headache Psychiatric: DENIES: Confusion (Deloris Black) GI Exam Vitals I&O Vital Signs Date Time Temp Pulse Resp B/P (MAP) Pulse Ox O2 Delivery O2 Flow Rate FiO2 08/05/17 08:00 97.4 70 19 181/94 (123) 99 08/05/17 04:37 97.5 59 16 143/68 (93) 95 08/05/17 00:00 96.5 65 16 148/67 (94) 95 08/04/17 22:34 95.6 62 20 154/74 (100) 98 08/04/17 20:27 97.7 66 18 145/73 (97) 100 Room Air 08/04/17 17:05 98.5 77 16 118/56 (76) 98 I/O 08/04/17 08/04/17 08/04/17 08/05/17 08/05/17 08/05/17 06:59 14:59 22:59 06:59 14:59 22:59 Intake Total 341 ml Output Total 300 ml Balance -300 ml 341 ml Intake Oral 0 ml IV Total 341 ml Output Urine Total 300 ml Laboratory Test 08/04/17 18:30 08/05/17 06:13 White Blood Count 9.4 TH/MM3 9.6 TH/MM3 Red Blood Count 3.79 MIL/MM3 3.72 MIL/MM3 Hemoglobin 11.3 GM/DL 11.3 GM/DL Hematocrit 33.6 % 33.4 % Mean Corpuscular Volume 88.8 FL 89.9 FL Mean Corpuscular Hemoglobin 29.8 PG 30.5 PG Mean Corpuscular Hemoglobin Concent 33.5 % 33.9 % Red Cell Distribution Width 13.1 % 13.9 % Platelet Count 241 TH/MM3 218 TH/MM3 Mean Platelet Volume 8.4 FL 9.0 FL Neutrophils (%) (Auto) 72.1 % 61.4 % Lymphocytes (%) (Auto) 18.1 % 25.6 % Monocytes (%) (Auto) 5.4 % 7.4 % Eosinophils (%) (Auto) 3.9 % 4.9 % Basophils (%) (Auto) 0.5 % 0.7 % Neutrophils # (Auto) 6.8 TH/MM3 5.9 TH/MM3 Lymphocytes # (Auto) 1.7 TH/MM3 2.5 TH/MM3 Monocytes # (Auto) 0.5 TH/MM3 0.7 TH/MM3 Eosinophils # (Auto) 0.4 TH/MM3 0.5 TH/MM3 Basophils # (Auto) 0.0 TH/MM3 0.1 TH/MM3 CBC Comment DIFF FINAL DIFF FINAL Differential Comment Blood Urea Nitrogen 23 MG/DL 19 MG/DL Creatinine 2.30 MG/DL 2.00 MG/DL Random Glucose 224 MG/DL 102 MG/DL Total Protein 7.3 GM/DL 6.9 GM/DL Albumin 3.1 GM/DL 2.9 GM/DL Calcium Level 8.7 MG/DL 8.7 MG/DL Alkaline Phosphatase 724 U/L 694 U/L Aspartate Amino Transf (AST/SGOT) 94 U/L 73 U/L Alanine Aminotransferase (ALT/SGPT) 108 U/L 90 U/L Total Bilirubin 0.8 MG/DL 0.6 MG/DL Sodium Level 141 MEQ/L 144 MEQ/L Potassium Level 4.0 MEQ/L 4.4 MEQ/L Chloride Level 110 MEQ/L 113 MEQ/L Carbon Dioxide Level 22.7 MEQ/L 24.0 MEQ/L Anion Gap 8 MEQ/L 7 MEQ/L Estimat Glomerular Filtration Rate 28 ML/MIN 33 ML/MIN Lipase 206 U/L Physical Examination HEENT: Normocephalic; atraumatic; no jaundice. CHEST: CTA CARDIAC: RRR ABDOMEN: Soft, nondistended, RUQ tenderness; no hepatosplenomegaly; bowel sounds are present in all four quadrants. EXTREMITIES: No clubbing, cyanosis, or edema. SKIN: Normal; no rash; no jaundice. MANAGER VOICE: No focal deficits; alert and oriented times three. (Deloris BlackP) Assessment and Plan Plan ASSESSMENT: - Abdominal pain, n/v with recent imaging suggestive of choledocholithiasis. 2 month hx of RUQ pain, n/v, fever, chills associated with food intake. Seen in ER on 07/11/17 for these symptoms and found to have WBC 13.9 and elevated alkaline phosphatase. CT scan abdomen and pelvis without iv contrast (07/11/17)---> Common bile duct dilatation with 2 suspected stones in the distal common bile duct. There is also air within the liver which almost certainly within the biliary system, scattered colonic diverticular, PHYSICS PROFESSOR shut tubing. He was discharged with instructions to follow up with GI. He has continued to have have symptoms and [facility] and told [facility] come [facility] for possible ER[facility]. WBC 9.6. T. Bili 0.6, AST 73, ALT 90, Alk Phosph 694. US done but pending. NPO. Likely will need ERCP today. Of note, S/P cholecystectomy~2 years ago. - Elevated LFTs, likely related to above. T. Bili 0.6, AST 73, ALT 90, Alk Phosph 694. Await US. Likely will need ERCP today. - Anemia, normocytic. 11.3/33.4. - Alternating constipation/diarrhea, chronic. Being scheduled for colonoscopy as outpatient at [place] - Acute on chronic kidney disease. Creat 2.00 - HTN, DM, Hyperlipidemia, CAD, TIA per attending PLAN: - Plan for ERCP with possible sphincterotomy today - Obtain consents - NPO - Await US - CBC, CMP in am - Supportive care - Further recommendations to follow based on results of above - Pt seen and examined by Dr. Moreno and myself and this note is written on his behalf (Deloris Black) Physician Comments Seen and examined with MARKIE, ERCP planned for today. Further recs to follow. Thank you (Matt Moreno MD) Deloris Black Aug 05, 2017 09:47 Matt Moreno MD Aug 05, 2017 14:55
[2017-08-05] MEDS: LOSARTAN 50 MG TAB PO SCH (10:17)
[2017-08-05] MEDS: METOPROLOL TARTRATE 25 MG TAB PO SCH ×2 (10:25→21:23)
[2017-08-05] MEDS ORDERED: PHENYLEPH/NS 1000 MCG/10 ML SYR IV ONE (12:00)
[2017-08-05] MEDS ORDERED: ePHEDrine/NS 25 MG/5 ML SYR IV ONE (12:00)
[2017-08-05] MEDS ORDERED: PROPOFOL 200 MG/20 ML AMP IV ONE (12:00)
[2017-08-05] MEDS ORDERED: MIDAZOLAM HCL 2 MG/2 ML VIAL IV ONE (12:00)
[2017-08-05] MEDS ORDERED: SUCCINYLCHOLINE CHLORIDE 100 MG/5 ML SYRINGE IV PUSH ONE (12:00)
[2017-08-05] MEDS ORDERED: LIDOCAINE HCL 1% PF 5 ML AMPULE OTHER ONE (12:00)
[2017-08-05] MEDS ORDERED: FAMOTIDINE 20 MG/2 ML VIAL ONE (12:59)
--- NOTE | 2017-08-05 13:12 | EKG ---
Date Performed: 08/05/2017 Time Performed: 11:16:14 PTAGE: 76 years EKG: SINUS BRADYCARDIA BORDERLINE LEFT AXIS DEVIATION BORDERLINE ECG NO PREVIOUS TRACING DOCTOR: Jesus Xie Interpretating Date/Time 08/05/2017 13:11:04
[2017-08-05] MEDS ORDERED: IOHEXOL 350 MG/ML 50 ML BTL (for RAD DIAG) OTHER ONE (13:49)
--- NOTE | 2017-08-05 14:13 | GIPROC ---
[facility] [address] [facility] [place], [address] ERCP PROCEDURE REPORT EXAM DATE: 08/05/2017 PATIENT NAME: Jimmy Gonzalez MR #: [id number] BIRTHDATE: 1940 ATTENDING: Matt Moreno MD ORDER #: [id number] SPREADER: Ronel Kebede and Cheri Montano STATUS: inpatient INDICATIONS: The patient is a 76 yr old male here for an ERCP due to established bile duct stone(s) PROCEDURE PERFORMED: ERCP with sphincterotomy/papillotomy ERCP with removal of calculus/calculi ERCP with stent placement MEDICATIONS: Per Anesthesia and None. CONSENT: The patient understands the risks and benefits of the procedure and understands that these risks include, but are not limited to: sedation, allergic reaction, infection, perforation and/or bleeding. Alternative means of evaluation and treatment include, among others: physical exam, x-rays, and/or surgical intervention. The patient elects to proceed with this endoscopic procedure. medical equipment was checked for proper function. Hand hygiene and appropriate measures for infection prevention was taken. After the risks, benefits and alternatives of the procedure were thoroughly explained, Informed was verified, confirmed and timeout was successfully executed by the treatment team. With the patient in left semi-prone position, medications were administered intravenously.The Pentax [id number] was passed from the mouth into the esophagus and further advanced from the esophagus into the stomach. From stomach scope was directed to the second portion of the duodenum. Major papilla was aligned with the duodenoscope. The scope position was confirmed fluoroscopically. Rest of the findings/therapeutics are given below. The scope was then completely withdrawn from the patient and the procedure completed. The pulse, BP, and O2 saturation were monitored and documented by the physician and the nursing staff throughout the entire procedure. The patient was cared for as planned according to standard protocol. The patient was then discharged to recovery in stable condition and with appropriate post procedure care. The ampulla was located the second portion of the duodenum. It was located within a periampullary diverticulum. NIX_THIS NIX_THIS Two stones were seen in the common bile duct. NIX_THIS 6m Sphincterotomy, Balloon sweep 11.5 mm balloon. Stone fragments extruded from the ampulla. 8.5 cm x 9 cm stent placed. ADVERSE EVENT: There were no complications. IMPRESSIONS: The ampulla was located within a periampullary diverticulum NIX_THIS RECOMMENDATIONS: Liver enzymes REPEAT EXAM: Return 3 months ERCP Matt Moreno MD eSigned: Matt Moreno MD 08/05/2017 2:12 PM cc:
--- NOTE | 2017-08-05 14:30 | RADRPT ---
EXAM DATE/TIME: 08/05/2017 13:49 [facility] COMPARISON: No previous studies available for comparison. INDICATIONS : Status post cholecystectomy. Choledocolithiasis. Sphincterotomy. Stent placement. FLUORO TIME: 1.73 minutes IMAGE COUNT: 4 CONTRAST: Instilled by Ordering Physician MEDICAL HISTORY : Choledocolithiasis. SURGICAL HISTORY : Cholecystectomy. ENCOUNTER: Subsequent ACUITY: 1 day PAIN SCORE: Non-responsive. LOCATION: Right upper quadrant FINDINGS: An ERCP was performed by the ordering physician. The images demonstrate significant dilatation of the common bile duct and placement of an internal de livery stent. CONCLUSION: ERCP as above. Aramis Ram MD on August 05, 2017 at 14:28 Board Certified Radiologist. This report was verified electronically.
[2017-08-05] MEDS: SERTRALINE HCL 100 MG TAB PO SCH ×2 (15:06→21:24)
[2017-08-05] MEDS: TAMSULOSIN HCL 0.4 MG CAP PO SCH (15:06)
[2017-08-05] MEDS: GALANTAMINE HYDROBROMIDE 4 MG TAB PO SCH ×2 (15:06→21:24)
[2017-08-05] MEDS ORDERED: DO NOT ADM ANY ANTICOAGULANT DRUGS PRN (15:15)
--- NOTE | 2017-08-05 17:19 | RADRPT ---
EXAM DATE/TIME: 08/05/2017 16:35 [facility] COMPARISON: No previous studies available for comparison. INDICATIONS : Evaluate for shunt placement and obstruction. MEDICAL HISTORY : None. SURGICAL HISTORY : None. ENCOUNTER: Initial ACUITY: 1 day PAIN SCORE: 0/10 LOCATION: skull to abdomen. FINDINGS: Radiograph of the skull, neck, chest and abdomen performed to evaluate shunt patency. The shunt cath eter is seen entering the right parietal region with its tip in the region of the body of the lateral ventricle. The catheter is continuous in its course terminating in the left midabdomen. No catheter disruption i s identified. The visualized heart, lungs and abdominal structures are intact. Internal biliary stent is noted. CONCLUSION: Intact shunt. Aramis Ram MD on August 05, 2017 at 17:15 Board Certified Radiologist. This report was verified electronically.
[2017-08-05 18:55] LABS: PROTHROMBIN TIME - PATIENT 11.6 SEC (9.8-11.6)
[2017-08-05] MEDS: MIRTAZAPINE 15 MG TAB PO SCH (21:23)
[2017-08-05] MEDS: ATORVASTATIN 80 MG TAB PO SCH (21:24)
[2017-08-05] MEDS: DEXT 5%-NACL 0.45% 1000 ML INJ 1,000 ML IV SCH (22:33)
[2017-08-06] VITALS (8 sets, daily range): BP systolic 123–167; BP diastolic 68–86; PULSE 54–95; RESP 16–20; TEMP 96.4–97.6; O2SAT 95–98
[2017-08-06] MEDS: PANTOPRAZOLE SODIUM 40 MG VIAL IV PUSH SCH (04:26)
[2017-08-06] MEDS: HYDROmorphone HCL PF 1 MG/ML VIAL IV PUSH PRN ×5 (04:26→21:36)
[2017-08-06] MEDS: SERTRALINE HCL 100 MG TAB PO SCH ×2 (08:39→21:36)
[2017-08-06] MEDS: ASPIRIN EC 81 MG TABEC PO SCH (08:39)
[2017-08-06] MEDS: GALANTAMINE HYDROBROMIDE 4 MG TAB PO SCH ×2 (08:39→21:35)
[2017-08-06] MEDS: TAMSULOSIN HCL 0.4 MG CAP PO SCH (08:39)
[2017-08-06] MEDS: MAGNESIUM OXIDE 400 MG TAB PO SCH (08:39)
[2017-08-06] MEDS: VITAMIN B CMPLX/VITC/FOLIC AC CAP PO SCH (08:39)
[2017-08-06] MEDS: SODIUM CHLORIDE 0.9% FLUSH 10 ML FLUSH IV FLUSH SCH ×2 (08:40→21:36)
[2017-08-06] MEDS: METOPROLOL TARTRATE 25 MG TAB PO SCH ×2 (08:40→21:39)
[2017-08-06] MEDS: LOSARTAN 50 MG TAB PO SCH (08:40)
[2017-08-06] MEDS ORDERED: INFLUENZA VIRUS VACCINE (QUADRIVALENT) 0.5 ML SYR IM ONE (10:00)
--- NOTE | 2017-08-06 15:48 | HHI.GIFU ---
Subjective Remarks Resting in bed. Feels more bloated and states that he is having a different epigastric pain today, slightly worse than yesterday. Nausea, no vomiting. (Deloris Black) Objective Vitals I&O Vital Signs Date Time Temp Pulse Resp B/P (MAP) Pulse Ox O2 Delivery O2 Flow Rate FiO2 08/06/17 14:17 95 21 08/06/17 12:00 96.9 59 19 167/77 (107) 98 08/06/17 08:00 97.6 54 20 143/75 (97) 97 08/06/17 04:43 96.4 71 16 123/68 (86) 96 08/06/17 00:22 97.0 60 16 136/68 (90) 95 08/05/17 20:00 96.0 69 16 139/63 (88) 97 08/05/17 17:39 97 Nasal Cannula 2.00 08/05/17 16:00 96.9 69 19 145/70 (95) 97 I/O 08/05/17 08/05/17 08/05/17 08/06/17 08/06/17 08/06/17 06:59 14:59 22:59 06:59 14:59 22:59 Intake Total 1041 ml 1309 ml 325 ml Output Total 300 ml 900 ml 350 ml Balance -300 ml 1041 ml 409 ml -350 ml 325 ml Intake Oral 0 ml 650 ml IV Total 341 ml 659 ml 325 ml Other 700 ml Output Urine Total 300 ml 900 ml 350 ml # Bowel Movements 0 Laboratory Laboratory Tests Test 08/05/17 17:13 Prothrombin Time 11.6 Prothromb Time International Ratio 1.0 Imaging Last Impressions Shunt Study (Imaging) 08/05/17 0000 Signed Impressions: Service Date/Time: July 16:35 - CONCLUSION: Intact shunt. Aramis Ram MD GI Procedure 08/05/17 0000 Signed Impressions: Service Date/Time: July 13:49 - CONCLUSION: ERCP as above. Aramis Ram MD Abdomen Ultrasound 08/05/17 0000 Signed Impressions: Service Date/Time: July 08:03 - CONCLUSION: 1. Dilated common bile duct and common hepatic duct without discrete filling defect. 2. Status post cholecystectomy. 3. Nonvisualization of the pancreas. 4. No other significant abnormality. Aramis Ram MD Physical Exam HEENT: Normocephalic; atraumatic; no jaundice. CHEST: CTA CARDIAC: RRR ABDOMEN: Soft, mildly bloated, Epigastric tenderness; no hepatosplenomegaly; bowel sounds are present in all four quadrants. EXTREMITIES: No clubbing, cyanosis, or edema. SKIN: Normal; no rash; no jaundice. ART COORDINATOR: No focal deficits; alert and oriented times three. 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 2 month hx of RUQ pain, n/v, fever, chills associated with food intake. Seen in ER on 07/11/17 for these symptoms and found to have WBC 13.9 and elevated alkaline phosphatase. CT scan abdomen and pelvis without iv contrast (07/11/17)---> Common bile duct dilatation with 2 suspected stones in the distal common bile duct. There is also air within the liver which almost certainly within the biliary system, scattered colonic diverticular, ACADEMIC ADVISEMENT DIRECTOR shut tubing. He was discharged with instructions to follow up with GI. He has continued to have have symptoms and yesterday the [facility] called and told him to come to ER for possible ERCP. Of note, S/P cholecystectomy~2 years ago. S/P ERCP with sphincterotomy, balloon sweep, and stent placement (08/05/17)---> Periampullary diverticulum, 2 stones were seen in the cbd, s/p sphincterotomy, balloon sweep, and stent placement. LFTs yesterday- T. Bili 0.6, AST 73, ALT 90, Alk Phosph 694. Clinically, states he is more bloated and has a different epigastric pain today, slightly worse than yesterday. Will check lipase and LFT for today, repeat labs in am. Clear liquids today. - Choledocholithiasis, s/p ERCP with sphincterotomy, balloon sweep, and stent placement - Elevated LFTs, likely related to above. Will check today. ERCP as above. - Anemia, normocytic. Stable. No active bleeding. - Diarrhea with hx of alternating constipation/diarrhea. states 2 loose stools today. Will send for CDiff. Being scheduled for colonoscopy as outpatient at [facility] - Acute on chronic kidney disease. Creat 2.00 - HTN, DM, Hyperlipidemia, CAD, TIA per attending PLAN: - Clear liquids - PPI - Send LFT, Lipase now - Send stool for CDiff - LFT in am - Supportive care - Further recommendations to follow based on results of above - Pt seen and examined by Dr. Moreno and myself and this note is written on his behalf (Deloris Black) Physician Comments Seen and examined with MARKIE, possible post procedure pancreatitis. Labs sent. IVF , clear liquid diet. (Matt Moreno MD) Deloris Black Aug 06, 2017 15:48 Matt Moreno MD Aug 06, 2017 16:11
--- NOTE | 2017-08-06 17:13 | HHI.PR ---
Subjective Remarks Patient seen this morning around 11 AM. He reports bilateral abdominal cramping , with some loose bowel movements this morning. Status post ERCP yesterday which she tolerated well. Objective Vital Signs Date Time Temp Pulse Resp B/P (MAP) Pulse Ox O2 Delivery O2 Flow Rate FiO2 08/06/17 16:00 97.5 95 20 143/86 (105) 97 08/06/17 14:17 95 21 08/06/17 12:00 96.9 59 19 167/77 (107) 98 08/06/17 08:00 97.6 54 20 143/75 (97) 97 08/06/17 04:43 96.4 71 16 123/68 (86) 96 08/06/17 00:22 97.0 60 16 136/68 (90) 95 08/05/17 20:00 96.0 69 16 139/63 (88) 97 08/05/17 17:39 97 Nasal Cannula 2.00 I/O 08/05/17 08/05/17 08/05/17 08/06/17 08/06/17 08/06/17 06:59 14:59 22:59 06:59 14:59 22:59 Intake Total 1041 ml 1309 ml 325 ml Output Total 300 ml 900 ml 350 ml Balance -300 ml 1041 ml 409 ml -350 ml 325 ml Intake Oral 0 ml 650 ml IV Total 341 ml 659 ml 325 ml Other 700 ml Output Urine Total 300 ml 900 ml 350 ml # Bowel Movements 0 Result Diagram: 08/05/1761208/05/17612 Objective Remarks GENERAL: patient sitting up in bed. Appears comfortable. SKIN: Warm and dry. HEAD: Normocephalic. EYES: No scleral icterus. No injection or drainage. NECK: Supple, trachea midline. No JVD. CARDIOVASCULAR: Regular rate and rhythm without murmurs, gallops, or rubs. RESPIRATORY: Breath sounds equal bilaterally. No accessory muscle use. GASTROINTESTINAL: Abdomen soft,nondistended. Tenderness to moderate palpation diffusely. No rebound or guarding. MUSCULOSKELETAL: No cyanosis, or edema. BACK: Nontender without obvious deformity. No CVA tenderness. A/P Assessment and Plan 76 y/o male with a history of TBI with shunt placement, HTN, CKD, Neuropathy, DM , BPH, and HLD presented to the ED with complaints of nausea and vomiting. //Choledocholithiasis, RUQ pain, with transaminitis AST 94, ALT 108 -Consult GI, Dr. Moreno plans for ERCP in AM -Abdominal US ordered -Lipase ordered -Dilaudid IV for pain management = Status post ERCP 08/05 with stent placement and sphincterotomy. Follow-up LFTs tomorrow. Appreciate GI assistance. //Loose bowel movements. This is likely secondary to bile causing diarrhea. C. difficile ordered by GI and pending. 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 //HTN, chronic -Continue home medications, monitor vitals -Blood pressure acceptable. Continue to monitor. //DM, chronic -Accu checks Ac/HS -Hold Lantus until patient is no longer npo //DVT prophylaxis: SCDs //GI prophylaxis: Protonix Discharge Planning discharge home when cleared by Nir Kraus MD Aug 06, 2017 17:13
[2017-08-06 19:45] LABS: AUTOMATED NEUTROPHIL # 4.5 TH/MM3 (1.8-7.7); BASOPHIL # 0.1 TH/MM3 (0-0.2); EOSINOPHIL # 0.4 TH/MM3 (0-0.4); EOSINOPHIL % 5.4 % (0.0-4.0); HEMATOCRIT 34.5 % (39.0-51.0); HEMO FLAGS DIFF FINAL; LYMPH % 30.5 % (9.0-44.0); LYMPHOCYTE # 2.4 TH/MM3 (1.0-4.8); MEAN CELL VOLUME 90.5 FL (80.0-100.0); MEAN CORPUSCULAR HEMOGLOBIN 30.2 PG (27.0-34.0); MEAN CORPUSCULAR HGB CONC 33.3 % (32.0-36.0); MONO % 6.6 % (0.0-8.0); NEUT % 56.5 % (16.0-70.0); PLATELET COUNT 248 TH/MM3 (150-450); RED BLOOD COUNT 3.82 MIL/MM3 (4.50-5.90); WHITE BLOOD COUNT 7.9 TH/MM3 (4.0-11.0)
[2017-08-06 20:12] LABS: INDIRECT BILIRUBIN 0.3 MG/DL (0.0-0.8); TOTAL BILIRUBIN ADULT 0.6 MG/DL (0.2-1.0)
[2017-08-06] MEDS: ATORVASTATIN 80 MG TAB PO SCH (21:35)
[2017-08-06] MEDS: DEXT 5%-NACL 0.45% 1000 ML INJ 1,000 ML IV SCH (21:36)
[2017-08-06] MEDS: MIRTAZAPINE 15 MG TAB PO SCH (21:36)
[2017-08-07] VITALS (8 sets, daily range): BP systolic 112–162; BP diastolic 61–77; PULSE 58–64; RESP 14–20; TEMP 96.5–98.1; O2SAT 95–99
[2017-08-07] MEDS: PANTOPRAZOLE SODIUM 40 MG VIAL IV PUSH SCH (02:03)
[2017-08-07] MEDS: HYDROmorphone HCL PF 1 MG/ML VIAL IV PUSH PRN ×4 (02:04→16:29)
[2017-08-07 07:13] LABS: AUTOMATED NEUTROPHIL # 4.6 TH/MM3 (1.8-7.7); BASOPHIL # 0.1 TH/MM3 (0-0.2); BASOPHIL % 0.8 % (0.0-2.0); EOSINOPHIL # 0.4 TH/MM3 (0-0.4); EOSINOPHIL % 5.1 % (0.0-4.0); HEMATOCRIT 33.5 % (39.0-51.0); HEMO FLAGS DIFF FINAL; LYMPH % 32.5 % (9.0-44.0); LYMPHOCYTE # 2.7 TH/MM3 (1.0-4.8); MEAN CELL VOLUME 90.3 FL (80.0-100.0); MEAN CORPUSCULAR HEMOGLOBIN 30.5 PG (27.0-34.0); MEAN CORPUSCULAR HGB CONC 33.8 % (32.0-36.0); MONO % 6.5 % (0.0-8.0); NEUT % 55.1 % (16.0-70.0); PLATELET COUNT 230 TH/MM3 (150-450); RED BLOOD COUNT 3.71 MIL/MM3 (4.50-5.90); RED CELL DISTRIBUTION WIDTH 13.8 % (11.6-17.2); WHITE BLOOD COUNT 8.4 TH/MM3 (4.0-11.0)
[2017-08-07 07:37] LABS: MAGNESIUM 1.5 MG/DL (1.5-2.5); POTASSIUM 4.5 MEQ/L (3.5-5.1)
[2017-08-07 07:41] LABS: INDIRECT BILIRUBIN 0.2 MG/DL (0.0-0.8); TOTAL BILIRUBIN ADULT 0.5 MG/DL (0.2-1.0)
[2017-08-07] MEDS: TAMSULOSIN HCL 0.4 MG CAP PO SCH (09:09)
[2017-08-07] MEDS: SERTRALINE HCL 100 MG TAB PO SCH ×2 (09:09→20:48)
[2017-08-07] MEDS: SODIUM CHLORIDE 0.9% FLUSH 10 ML FLUSH IV FLUSH SCH ×2 (09:09→20:48)
[2017-08-07] MEDS: METOPROLOL TARTRATE 25 MG TAB PO SCH ×2 (09:09→20:48)
[2017-08-07] MEDS: VITAMIN B CMPLX/VITC/FOLIC AC CAP PO SCH (09:09)
[2017-08-07] MEDS: GALANTAMINE HYDROBROMIDE 4 MG TAB PO SCH ×2 (09:10→20:48)
[2017-08-07] MEDS: ASPIRIN EC 81 MG TABEC PO SCH (09:10)
[2017-08-07] MEDS: LOSARTAN 50 MG TAB PO SCH (09:10)
[2017-08-07] MEDS: MAGNESIUM OXIDE 400 MG TAB PO SCH (09:10)
--- NOTE | 2017-08-07 13:56 | HHI.GIFU ---
GI Follow-up Note Consult Follow-up Subjective: Patient laying in bed comfortably, no new complaints except lower abdominal pain. Objective: PHYSICAL EXAMINATION: Vitals signs stable No fever HEENT: Pupils round and reactive to light; normocephalic; atraumatic; no jaundice. Throat is clear. NECK: Neck is supple, no JVD, no lymphadenopathy. CHEST: Chest is clear to auscultation and percussion. CARDIAC: Regular rate and rhythm with no murmur gallop or rubs. ABDOMEN: Soft, nondistended, nontender; no hepatosplenomegaly; bowel sounds are present in all four quadrants. EXTREMITIES: No clubbing, cyanosis, or edema. SKIN: Normal; no rash; no jaundice. RESUME WRITER: No focal deficits; alert and oriented times three. Available Data (labs, X- Rays, Procedues) : Laboratory Tests Test 08/05/17 17:13 08/06/17 14:24 08/06/17 19:24 08/07/17 06:21 Prothrombin Time 11.6 SEC Prothromb Time International Ratio 1.0 RATIO White Blood Count 7.9 TH/MM3 8.4 TH/MM3 Red Blood Count 3.82 MIL/MM3 3.71 MIL/MM3 Hemoglobin 11.5 GM/DL 11.3 GM/DL Hematocrit 34.5 % 33.5 % Mean Corpuscular Volume 90.5 FL 90.3 FL Mean Corpuscular Hemoglobin 30.2 PG 30.5 PG Mean Corpuscular Hemoglobin Concent 33.3 % 33.8 % Red Cell Distribution Width 14.0 % 13.8 % Platelet Count 248 TH/MM3 230 TH/MM3 Mean Platelet Volume 8.6 FL 8.6 FL Neutrophils (%) (Auto) 56.5 % 55.1 % Lymphocytes (%) (Auto) 30.5 % 32.5 % Monocytes (%) (Auto) 6.6 % 6.5 % Eosinophils (%) (Auto) 5.4 % 5.1 % Basophils (%) (Auto) 1.0 % 0.8 % Neutrophils # (Auto) 4.5 TH/MM3 4.6 TH/MM3 Lymphocytes # (Auto) 2.4 TH/MM3 2.7 TH/MM3 Monocytes # (Auto) 0.5 TH/MM3 0.5 TH/MM3 Eosinophils # (Auto) 0.4 TH/MM3 0.4 TH/MM3 Basophils # (Auto) 0.1 TH/MM3 0.1 TH/MM3 CBC Comment DIFF FINAL DIFF FINAL Differential Comment Total Bilirubin 0.6 MG/DL 0.5 MG/DL Direct Bilirubin 0.3 MG/DL 0.3 MG/DL Indirect Bilirubin 0.3 MG/DL 0.2 MG/DL Aspartate Amino Transf (AST/SGOT) 49 U/L 37 U/L Alanine Aminotransferase (ALT/SGPT) 64 U/L 56 U/L Alkaline Phosphatase 585 U/L 522 U/L Total Protein 7.1 GM/DL 6.6 GM/DL Albumin 3.0 GM/DL 2.8 GM/DL Lipase 231 U/L Blood Urea Nitrogen 15 MG/DL Creatinine 1.59 MG/DL Random Glucose 123 MG/DL Calcium Level 8.9 MG/DL Phosphorus Level 3.4 MG/DL Magnesium Level 1.5 MG/DL Sodium Level 139 MEQ/L Potassium Level 4.5 MEQ/L Chloride Level 108 MEQ/L Carbon Dioxide Level 24.0 MEQ/L Anion Gap 7 MEQ/L Estimat Glomerular Filtration Rate 42 ML/MIN Allergies Coded Allergies Type Severity Reaction Last Updated Verified lisinopril Allergy Intermediate COUGH 08/04/17 No Active Scripts Medications Dose Route/Sig Max Daily Dose Days Date Category Zofran (Ondansetron HCl) 4 Mg Tab 4 Mg PO Q6HR PRN 07/11/17 Rx Lantus Inj (Insulin Glargine) 1,000 Unit/10 Ml Vial 22 Units SQ DAILY 07/11/17 Reported Sertraline (Sertraline HCl) 100 Mg Tab 100 Mg PO BID 07/11/17 Reported Omeprazole 20 Mg Tab 20 Mg PO DAILY 07/11/17 Reported Multivitamins (Multivitamin) 1 Each Tab.chew 1 Tab PO DAILY 07/11/17 Reported Mirtazapine 15 Mg Tab 15 Mg PO HS 07/11/17 Reported Metoprolol Tartrate 25 Mg Tab 12.5 Mg PO BID 07/11/17 Reported Magnesium Oxide 400 Mg Tab 400 Mg PO DAILY 07/11/17 Reported Losartan (Losartan Potassium) 100 Mg Tab 100 Mg PO DAILY 07/11/17 Reported Galantamine ER (Galantamine Hydrobromide) 16 Mg Caper 16 Mg PO DAILY 07/11/17 Reported Atorvastatin (Atorvastatin Calcium) 80 Mg Tab 80 Mg PO HS 9/17/17 Reported Aspirin EC (Aspirin) 81 Mg Tabdr 81 Mg PO DAILY 07/11/17 Reported Alfuzosin ER 24 HR 10 Mg Tab 10 Mg PO DAILY 07/11/17 Reported ASSESSMENT/PLAN:Seen and examined, still with lower abdominal pain and diarrhea. Labs normal. Check CT It was a pleasure seeing Jimmy Gonzalez. Thank you for this consult. Entered by: Matt Mansfield MD Aug 07, 2017 13:56
[2017-08-07] MEDS ORDERED: DIATRIZOATE MEGLUM/DIATRIZOATE SOD 9 ML CUP PO ONE (13:59)
--- NOTE | 2017-08-07 17:52 | HHI.PR ---
Subjective Remarks Patient seen today around noon. He states that abdominal pain continues. Denies any chest pain or shortness of breath. Objective Vital Signs Date Time Temp Pulse Resp B/P (MAP) Pulse Ox O2 Delivery O2 Flow Rate FiO2 08/07/17 16:00 97.0 61 18 162/77 (105) 98 08/07/17 12:00 98.1 63 20 150/71 (97) 99 08/07/17 09:23 95 21 08/07/17 08:00 96.7 62 14 157/74 (101) 97 08/07/17 04:25 96.6 60 18 112/61 (78) 95 08/07/17 00:25 97.1 64 20 158/74 (102) 98 08/06/17 20:38 97.2 88 20 136/70 (92) 98 08/06/17 20:00 64 I/O 08/06/17 08/06/17 08/06/17 08/07/17 08/07/17 08/07/17 07:00 15:00 23:00 07:00 15:00 23:00 Intake Total 325 ml 1525 ml 1017 ml Output Total 350 ml 800 ml 800 ml Balance -350 ml 325 ml 725 ml 217 ml Intake Oral 850 ml 580 ml IV Total 325 ml 675 ml 437 ml Output Urine Total 350 ml 800 ml 800 ml # Bowel Movements 2 Result Diagram: 08/07/1762008/07/17620 Objective Remarks GENERAL: patient sitting up in bed. Appears uncomfortable. SKIN: Warm and dry. HEAD: Normocephalic. EYES: No scleral icterus. No injection or drainage. NECK: Supple, trachea midline. No JVD. CARDIOVASCULAR: Regular rate and rhythm without murmurs, gallops, or rubs. RESPIRATORY: Breath sounds equal bilaterally. No accessory muscle use. GASTROINTESTINAL: Abdomen soft,nondistended. still Tenderness to moderate palpation diffusely. No rebound or guarding. MUSCULOSKELETAL: No cyanosis, or edema. BACK: Nontender without obvious deformity. No CVA tenderness. A/P Assessment and Plan 76 y/o male with a history of TBI with shunt placement, HTN, CKD, Neuropathy, DM , BPH, and HLD presented to the ED with complaints of nausea and vomiting. //Choledocholithiasis, RUQ pain, with transaminitis AST 94, ALT 108 -Consult GI, Dr. Moreno plans for ERCP in AM -Abdominal US ordered -Lipase ordered -Dilaudid IV for pain management = Status post ERCP 08/05 with stent placement and sphincterotomy. Follow-up LFTs tomorrow. Appreciate GI assistance. = 08/07. Follow-up LFTs appear improved, however abdominal pain worse. CT abdomen ordered by GI. Appreciate assistance. //Loose bowel movements. This is likely secondary to bile causing diarrhea. C. difficile ordered by GI and pending. = C. difficile still ordered and pending. 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 //HTN, chronic -Continue home medications, monitor vitals -Blood pressure acceptable. Continue to monitor. //DM, chronic -Accu checks Ac/HS -Sugars appear acceptable. Hold Lantus until patient is no longer npo //DVT prophylaxis: SCDs //GI prophylaxis: Protonix Discharge Planning discharge home when cleared by Nir Kraus MD Aug 07, 2017 17:52
--- NOTE | 2017-08-07 17:53 | HHI.FF ---
Face to Face Verification Diagnosis: (1) Choledocholithiasis (2) Diabetes (3) HTN (hypertension) Physical Therapy Order: Evaluate and Treat Home Health Nursing Order: Nursing assessment with vital signs Hairspring Staker Order: To Provide: Long range planning I have seen patient Jimmy Gonzalez on 08/07/17. My clinical findings support the need for the requested home health care services because: Deconditioned w/ increased weakness I certify that my clinical findings support that this patient is homebound because: Unsafe to leave home unassisted Nir Torrez MD Aug 07, 2017 17:53
[2017-08-07] MEDS: HYDROmorphone HCL PF 2 MG/ML VIAL IV PRN ×2 (20:18→23:57)
[2017-08-07] MEDS ORDERED: IOHEXOL 350 MG/ML 10 ML VIAL (for RAD DIAG) IVCONTRAST ONE (20:37)
[2017-08-07] MEDS: MIRTAZAPINE 15 MG TAB PO SCH (20:48)
[2017-08-07] MEDS: ATORVASTATIN 80 MG TAB PO SCH (20:48)
[2017-08-07] MEDS: DEXT 5%-NACL 0.45% 1000 ML INJ 1,000 ML IV SCH (20:48)
--- NOTE | 2017-08-07 21:35 | RADRPT ---
EXAM DATE/TIME: 08/07/2017 20:21 [facility] COMPARISON: No previous studies available for comparison. INDICATIONS : Bilateral upper quadrant abdominal pain. IV CONTRAST: 95 cc Omnipaque 350 (iohexol) IV ORAL CONTRAST: Prescribed oral contrast ingested. RADIATION DOSE: 12.02 CTDIvol (mGy) MEDICAL HISTORY : Cardiovascular disease. Diabetes mellitus type 2. Hypertension.CVA. Renal failure. Skin cancer. SURGICAL HISTORY : Appendectomy. Cholecystectomy. ENCOUNTER: Initial ACUITY: 1 month PAIN SCALE: 6/10 LOCATION: Left upper quadrant TECHNIQUE: Volumetric scanning of the abdomen and pelvis was performed. Using automated exposure control and ad justment of the mA and/or kV according to patient size, radiation dose was kept as low as reasonably achievable to obtain optimal diagnostic quality images. DICOM format image data is available electro nically for review and comparison. FINDINGS: LOWER LUNGS: The visualized lower lungs are clear. LIVER: Internal biliary stent is noted. There is fluid and air within the biliary tree. No focal hepatic les ions. Gallbladder has been removed. SPLEEN: Normal size without lesion. PANCREAS: Within normal limits. KIDNEYS: Normal in size and shape. There is no mass, stone or hydronephrosis. ADRENAL GLANDS: Within normal limits. VASCULAR: There is no aortic aneurysm. BOWEL/MESENTERY: Multiple diverticular seen throughout the descending and sigmoid colon. No active inflammatory change s. The stomach, small bowel, and colon demonstrate no acute abnormality. There is no free intraperit lee air or fluid. Peritoneal shunting is noted. ABDOMINAL WALL: Within normal limits. RETROPERITONEUM: There is no lymphadenopathy. BLADDER: No wall thickening or mass. REPRODUCTIVE: Within normal limits. INGUINAL: There is no lymphadenopathy or hernia. MUSCULOSKELETAL: Within normal limits for patient age. CONCLUSION: 1. Internal biliary stent with fluid and air in the biliary tree. 2. No evidence of acute process. 3. Status post cholecystectomy. 4. Uncomplicated diverticulosis. Aramis Ram MD on August 07, 2017 at 21:23 Board Certified Radiologist. This report was verified electronically.
[2017-08-08] VITALS (8 sets, daily range): BP systolic 122–153; BP diastolic 66–74; PULSE 57–66; RESP 14–20; TEMP 96–97.8; O2SAT 95–98
[2017-08-08] MEDS: PANTOPRAZOLE SODIUM 40 MG VIAL IV PUSH SCH (04:02)
[2017-08-08] MEDS: HYDROmorphone HCL PF 2 MG/ML VIAL IV PRN ×5 (04:03→23:37)
[2017-08-08] MEDS: SODIUM CHLORIDE 0.9% FLUSH 10 ML FLUSH IV FLUSH SCH ×2 (09:00→19:40)
[2017-08-08] MEDS: MAGNESIUM OXIDE 400 MG TAB PO SCH (09:54)
[2017-08-08] MEDS: SERTRALINE HCL 100 MG TAB PO SCH ×2 (09:54→19:39)
[2017-08-08] MEDS: VITAMIN B CMPLX/VITC/FOLIC AC CAP PO SCH (09:54)
[2017-08-08] MEDS: LOSARTAN 50 MG TAB PO SCH (09:54)
[2017-08-08] MEDS: GALANTAMINE HYDROBROMIDE 4 MG TAB PO SCH ×2 (09:54→19:41)
[2017-08-08] MEDS: TAMSULOSIN HCL 0.4 MG CAP PO SCH (09:54)
[2017-08-08] MEDS: METOPROLOL TARTRATE 25 MG TAB PO SCH ×2 (09:55→19:40)
[2017-08-08] MEDS: ASPIRIN EC 81 MG TABEC PO SCH (09:55)
[2017-08-08 13:42] LABS: AUTOMATED NEUTROPHIL # 5.3 TH/MM3 (1.8-7.7); BASOPHIL % 0.6 % (0.0-2.0); EOSINOPHIL # 0.3 TH/MM3 (0-0.4); EOSINOPHIL % 4.1 % (0.0-4.0); HEMATOCRIT 35.6 % (39.0-51.0); HEMO FLAGS DIFF FINAL; LYMPH % 24.3 % (9.0-44.0); MEAN CELL VOLUME 89.9 FL (80.0-100.0); MEAN CORPUSCULAR HGB CONC 33.4 % (32.0-36.0); MONO % 6.2 % (0.0-8.0); NEUT % 64.8 % (16.0-70.0); PLATELET COUNT 246 TH/MM3 (150-450); RED BLOOD COUNT 3.96 MIL/MM3 (4.50-5.90); RED CELL DISTRIBUTION WIDTH 13.6 % (11.6-17.2); WHITE BLOOD COUNT 8.3 TH/MM3 (4.0-11.0)
[2017-08-08 14:07] LABS: ANION GAP 8 MEQ/L (5-15); AST (GOT) 36 U/L (15-37); BICARBONATE 23.9 MEQ/L (21.0-32.0); BLOOD UREA NITROGEN 16 MG/DL (7-18); CHLORIDE 108 MEQ/L (98-107); GLOMERULAR FILTRATION RATE 40 ML/MIN (>89); POTASSIUM 4.2 MEQ/L (3.5-5.1); SODIUM (NA) 140 MEQ/L (136-145)
[2017-08-08 14:08] LABS: ALT (GPT) 50 U/L (12-78)
[2017-08-08 14:10] LABS: ALKALINE PHOSPHATASE 502 U/L (45-117); TOTAL BILIRUBIN ADULT 0.6 MG/DL (0.2-1.0)
--- NOTE | 2017-08-08 15:34 | HHI.GIFU ---
GI Follow-up Note Consult Follow-up Subjective: Patient laying in bed comfortably, no new complaints except lower abdominal pain. Objective: PHYSICAL EXAMINATION: Vitals signs stable No fever HEENT: Pupils round and reactive to light; normocephalic; atraumatic; no jaundice. Throat is clear. NECK: Neck is supple, no JVD, no lymphadenopathy. CHEST: Chest is clear to auscultation and percussion. CARDIAC: Regular rate and rhythm with no murmur gallop or rubs. ABDOMEN: Soft, nondistended, nontender; no hepatosplenomegaly; bowel sounds are present in all four quadrants. EXTREMITIES: No clubbing, cyanosis, or edema. SKIN: Normal; no rash; no jaundice. SUPERVISOR PLASMA: No focal deficits; alert and oriented times three. Available Data (labs, X- Rays, Procedues) : Allergies Coded Allergies Type Severity Reaction Last Updated Verified lisinopril Allergy Intermediate COUGH 08/04/17 No Active Scripts Medications Dose Route/Sig Max Daily Dose Days Date Category Zofran (Ondansetron HCl) 4 Mg Tab 4 Mg PO Q6HR PRN 07/11/17 Rx Lantus Inj (Insulin Glargine) 1,000 Unit/10 Ml Vial 22 Units SQ DAILY 07/11/17 Reported Sertraline (Sertraline HCl) 100 Mg Tab 100 Mg PO BID 07/11/17 Reported Omeprazole 20 Mg Tab 20 Mg PO DAILY 07/11/17 Reported Multivitamins (Multivitamin) 1 Each Tab.chew 1 Tab PO DAILY 07/11/17 Reported Mirtazapine 15 Mg Tab 15 Mg PO HS 07/11/17 Reported Metoprolol Tartrate 25 Mg Tab 12.5 Mg PO BID 07/11/17 Reported Magnesium Oxide 400 Mg Tab 400 Mg PO DAILY 07/11/17 Reported Losartan (Losartan Potassium) 100 Mg Tab 100 Mg PO DAILY 07/11/17 Reported Galantamine ER (Galantamine Hydrobromide) 16 Mg Caper 16 Mg PO DAILY 07/11/17 Reported Atorvastatin (Atorvastatin Calcium) 80 Mg Tab 80 Mg PO HS 07/11/17 Reported Aspirin EC (Aspirin) 81 Mg Tabdr 81 Mg PO DAILY 07/11/17 Reported Alfuzosin ER 24 HR 10 Mg Tab 10 Mg PO DAILY 07/11/17 Reported ASSESSMENT/PLAN:Seen and examined, still with lower abdominal pain. No etiology found. CT reviewed. Ok to dc per gi with fu in 2 weeks in the clinic. Thankyou It was a pleasure seeing Jimmy Gonzalez. Thank you for this consult. Entered by: Matt Mansfield MD Aug 08, 2017 15:34
--- NOTE | 2017-08-08 18:55 | HHI.PR ---
Subjective Remarks Patient reports continued epigastric pain, poor appetite. No bowel movement in 2 days. He says he does not feel like he can go home today, feels like it will get worse. We will think about discharge tomorrow. Objective Vital Signs Date Time Temp Pulse Resp B/P (MAP) Pulse Ox O2 Delivery O2 Flow Rate FiO2 08/08/17 16:00 96.9 64 17 153/74 (100) 95 08/08/17 14:46 59 08/08/17 12:00 96.3 63 14 152/73 (99) 97 08/08/17 08:00 96.4 59 16 135/71 (92) 95 08/08/17 04:33 17 08/08/17 04:27 96.0 57 18 122/66 (84) 98 08/08/17 00:25 97.4 65 18 150/72 (98) 97 08/07/17 20:33 96.5 64 18 134/63 (86) 98 08/07/17 20:02 58 I/O 08/07/17 08/07/17 08/07/17 08/08/17 08/08/17 08/08/17 07:00 15:00 23:00 07:00 15:00 23:00 Intake Total 1017 ml 1496 ml 760 ml 1820 ml Output Total 800 ml 1200 ml 1400 ml 1200 ml Balance 217 ml 296 ml -640 ml 620 ml Intake Oral 580 ml 480 ml 760 ml 800 ml IV Total 437 ml 1016 ml 1020 ml Output Urine Total 800 ml 1200 ml 1400 ml 1200 ml # Voids 2 # Bowel Movements 1 1 1 Result Diagram: 08/08/17 1235 08/08/17 1235 Objective Remarks GENERAL: patient sitting up in bed. Appears uncomfortable. SKIN: Warm and dry. HEAD: Normocephalic. EYES: No scleral icterus. No injection or drainage. NECK: Supple, trachea midline. No JVD. CARDIOVASCULAR: Regular rate and rhythm without murmurs, gallops, or rubs. RESPIRATORY: Breath sounds equal bilaterally. No accessory muscle use. GASTROINTESTINAL: Abdomen soft,nondistended. still Tenderness to moderate palpation diffusely. tenderness improved from yesterday. No rebound or guarding. MUSCULOSKELETAL: No cyanosis, or edema. BACK: Nontender without obvious deformity. No CVA tenderness. A/P Assessment and Plan ==== 08/08/17 Patient has been cleared by gastroenterology. Likely discharge home tomorrow if all goes well.. 76 y/o male with a history of TBI with shunt placement, HTN, CKD, Neuropathy, DM , BPH, and HLD presented to the ED with complaints of nausea and vomiting. //Choledocholithiasis, RUQ pain, with transaminitis AST 94, ALT 108 -Consult GI, Dr. Moreno plans for ERCP in AM -Abdominal US ordered -Lipase ordered -Dilaudid IV for pain management = Status post ERCP 08/05 with stent placement and sphincterotomy. Follow-up LFTs tomorrow. Appreciate GI assistance. = 08/07. Follow-up LFTs appear improved, however abdominal pain worse. CT abdomen ordered by GI. Appreciate assistance. = 08/08. Follow-up alkaline phosphatase improving. 502. Likely discharge tomorrow. Patient has been cleared by gastroenterology. //Loose bowel movements. This is likely secondary to bile causing diarrhea. C. difficile ordered by GI and pending. = No further bowel movements. 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 //HTN, chronic -Continue home medications, monitor vitals -Blood pressure acceptable. Continue to monitor. //DM, chronic -Accu checks Ac/HS -Sugars appear acceptable. Hold Lantus until patient is no longer npo //DVT prophylaxis: SCDs //GI prophylaxis: Protonix Discharge Planning discharge home tomorrow if feeling all right. Nir Torrez MD Aug 08, 2017 18:55
[2017-08-08] MEDS: ATORVASTATIN 80 MG TAB PO SCH (19:39)
[2017-08-08] MEDS: MIRTAZAPINE 15 MG TAB PO SCH (19:39)
[2017-08-08] MEDS: DEXT 5%-NACL 0.45% 1000 ML INJ 1,000 ML IV SCH (19:43)
[2017-08-09] VITALS: BP 127/64; PULSE 64; RESP 18; TEMP 97.4; O2SAT 96
[2017-08-09] MEDS: HYDROmorphone HCL PF 2 MG/ML VIAL IV PRN ×2 (03:55→08:54)
[2017-08-09] MEDS: PANTOPRAZOLE SODIUM 40 MG VIAL IV PUSH SCH (03:55)
[2017-08-09 04:00] VITALS: BP 107/59; PULSE 59; RESP 18; TEMP 96.4; O2SAT 94
[2017-08-09 08:00] VITALS: BP 151/84; PULSE 71; RESP 18; TEMP 96.2; O2SAT 97
[2017-08-09] MEDS: LOSARTAN 50 MG TAB PO SCH (08:56)
[2017-08-09] MEDS: TAMSULOSIN HCL 0.4 MG CAP PO SCH (08:56)
[2017-08-09] MEDS: METOPROLOL TARTRATE 25 MG TAB PO SCH (08:56)
[2017-08-09] MEDS: MAGNESIUM OXIDE 400 MG TAB PO SCH (08:56)
[2017-08-09] MEDS: ASPIRIN EC 81 MG TABEC PO SCH (08:56)
[2017-08-09] MEDS: VITAMIN B CMPLX/VITC/FOLIC AC CAP PO SCH (08:56)
[2017-08-09] MEDS: SERTRALINE HCL 100 MG TAB PO SCH (08:57)
[2017-08-09] MEDS: GALANTAMINE HYDROBROMIDE 4 MG TAB PO SCH (08:57)
--- NOTE | 2017-08-09 09:14 | HHI.DS ---
Discharge Summary Admission Date Aug 04, 2017 at 19:27 Discharge Date: Aug 09, 2017 Admitting Diagnosis Choledocholithiasis (1) Choledocholithiasis ICD Code: K80.50 - Calculus of bile duct without cholangitis or cholecystitis without obstruction Status: Acute (2) HTN (hypertension) ICD Code: I10 - Essential (primary) hypertension Status: Chronic (3) Diabetes ICD Code: E11.9 - Type 2 diabetes mellitus without complications Status: Chronic (4) Fall ICD Code: W19.XXXA - Unspecified fall, initial encounter Status: Acute Procedures Status post ERCP 08/05 with stent placement and sphincterotomy Brief History - From Admission Written by MARKIE Arcos acting as scribe for Dr. Scott] on 08/05/17 at 03: 07. 76 y/o male with a history of TBI with shunt placement,HTN, CKD, Neuropathy, CAD , TIA, sleep apnea, DM, and HLD presented to the ED with complaints of nausea and vomiting. He states for the last 2 weeks he has been having nausea and vomiting with eating or drinking. He also states he is having diarrhea, denies any black or red colored stools. He is a disabled and [facility] yesterday and told him he had a fever, unknown how high. He does complain of chills. He also states he has been falling down a lot due to dizziness and last time his shunt was checked was January 2017. He is unsure if he is falling more than normal. He also complains of urinary frequency at times , difficulty swallowing liquids and solids (for 2 months), he has had esophageal dilation in the past. He denies any chest pain, or sob. CBC/BMP: 08/08/17 1235 08/08/17 1235 Significant Findings Laboratory Tests Test 08/06/17 14:24 08/06/17 19:24 08/07/17 06:21 08/08/17 12:35 Red Blood Count 3.82 MIL/MM3 (4.50-5.90) 3.71 MIL/MM3 (4.50-5.90) 3.96 MIL/MM3 (4.50-5.90) Hemoglobin 11.5 GM/DL (13.0-17.0) 11.3 GM/DL (13.0-17.0) 11.9 GM/DL (13.0-17.0) Hematocrit 34.5 % (39.0-51.0) 33.5 % (39.0-51.0) 35.6 % (39.0-51.0) Eosinophils (%) (Auto) 5.4 % (0.0-4.0) 5.1 % (0.0-4.0) 4.1 % (0.0-4.0) Direct Bilirubin 0.3 MG/DL (0.0-0.2) 0.3 MG/DL (0.0-0.2) Aspartate Amino Transf (AST/SGOT) 49 U/L (15-37) Alkaline Phosphatase 585 U/L (45-117) 522 U/L (45-117) 502 U/L (45-117) Albumin 3.0 GM/DL (3.4-5.0) 2.8 GM/DL (3.4-5.0) 3.0 GM/DL (3.4-5.0) Creatinine 1.59 MG/DL (0.60-1.30) 1.69 MG/DL (0.60-1.30) Random Glucose 123 MG/DL (74-106) 138 MG/DL (74-106) Chloride Level 108 MEQ/L (98-107) 108 MEQ/L (98-107) Estimat Glomerular Filtration Rate 42 ML/MIN (>89) 40 ML/MIN (>89) Imaging Last Impressions Abdomen/Pelvis CT 08/07/17 0000 Signed Impressions: Service Date/Time: Monday, August 07, 2017 20:21 - CONCLUSION: 1. Internal biliary stent with fluid and air in the biliary tree. 2. No evidence of acute process. 3. Status post cholecystectomy. 4. Uncomplicated diverticulosis. Aramis Ram MD Shunt Study (Imaging) 08/05/17 0000 Signed Impressions: Service Date/Time: July 16:35 - CONCLUSION: Intact shunt. Aramis Ram MD GI Procedure 08/05/17 0000 Signed Impressions: Service Date/Time: July 13:49 - CONCLUSION: ERCP as above. Aramis Ram MD Abdomen Ultrasound 08/05/17 0000 Signed Impressions: Service Date/Time: July 08:03 - CONCLUSION: 1. Dilated common bile duct and common hepatic duct without discrete filling defect. 2. Status post cholecystectomy. 3. Nonvisualization of the pancreas. 4. No other significant abnormality. Aramis Ram MD Pt update on day of discharge Patient at the margin of the bed. still with some abd pain. No fever or chills. No n/v/d/c. Able to eat and keep down food. Hospital Course 76 y/o male with a history of TBI with shunt placement, HTN, CKD, Neuropathy, DM , BPH, and HLD presented to the ED with complaints of nausea and vomiting. With Choledocholithiasis, RUQ pain, with transaminitis s/p ERCP with stent placement and sphincterotomy. Paatien timprpved able to keep down food,. CT a/p reviewed as above. Cleared by consultants for DC. To f/u as OP with PCP and consultants. //Choledocholithiasis, RUQ pain, with transaminitis AST 94, ALT 108 -Consult GI, Dr. Moreno plans for ERCP in AM -Abdominal US ordered -Lipase ordered -Dilaudid IV for pain management = Status post ERCP 08/05 with stent placement and sphincterotomy. Follow-up LFTs tomorrow. Appreciate GI assistance. = 08/07. Follow-up LFTs appear improved, however abdominal pain worse. CT abdomen ordered by GI. Appreciate assistance. = 08/08. Follow-up alkaline phosphatase improving. 502. Likely discharge tomorrow. Patient has been cleared by gastroenterology. //Loose bowel movements. This is likely secondary to bile causing diarrhea. C. difficile ordered by GI and pending. = No further bowel movements. //Falls, history of [employer] shunt placement at in [place] 01/2017 -[employer] shunt series ordered; pt's abdominal pain is not too characteristic of CBD stone, would need to r/o shunt malposition, doubt shunt infection- pt also reports ongoing gait issues despite shunt placement in January 2017 -Shunt series ordered shows shunt intact. //HTN, chronic -Continue home medications, monitor vitals -Blood pressure acceptable. Continue to monitor. //DM, chronic -Accu checks Ac/HS -Sugars appear acceptable. Hold Lantus until patient is no longer npo //DVT prophylaxis: SCDs //GI prophylaxis: Protonix Discharge Planning discharge home in stable condition to f/u as o with PCP and consultants. Pt Condition on Discharge: Stable Discharge Disposition: Discharge Home Discharge Time: > 30 minutes Discharge Instructions DIET: Follow Instructions for: Heart Healthy Diet, Diabetic Diet Activities you can perform: Regular-No Restrictions Follow up Referrals: Gastroenterology - 2 Weeks with Matt Moreno MD PCP Follow-up - 2-3 Days Changed Medications: Omeprazole (Omeprazole) 20 Mg Tab 40 MG PO DAILY for gerd, #30 TAB 0 Refills (Changed from: 20 MG) Continued Medications: Alfuzosin ER 24 HR (Alfuzosin ER 24 HR) 10 Mg Tab 10 MG PO DAILY for BPH, #30 TAB [address] (Aspirin EC) 81 Mg Tabdr 81 MG PO DAILY, TAB 0 Refills Atorvastatin (Atorvastatin) 80 Mg Tab 80 MG PO HS for Cholesterol Management, #30 TAB 0 Refills Galantamine ER (Galantamine ER) 16 Mg Caper 16 MG PO DAILY for Alzheimer's Dementia, #30 CAP 0 Refills Insulin Glargine Inj (Lantus Inj) 1,000 Unit/10 Ml Vial 22 UNITS SQ DAILY for Blood Sugar Management, VIAL 0 Refills Losartan (Losartan) 100 Mg Tab 100 MG PO DAILY for Blood Pressure Management, #30 TAB 0 Refills Magnesium Oxide (Magnesium Oxide) 400 Mg Tab 400 MG PO DAILY for Nutritional Supplement, TAB 0 Refills Metoprolol Tartrate (Metoprolol Tartrate) 25 Mg Tab 12.5 MG PO BID, #60 TAB 0 Refills Mirtazapine (Mirtazapine) 15 Mg Tab 15 MG PO HS for Depression Control, #30 TAB 0 Refills Multivitamin (Multivitamins) 1 Each Tab.chew 1 TAB PO DAILY Ondansetron (Zofran) 4 Mg Tab 4 MG PO Q6HR PRN for NAUSEA OR VOMITING, #12 TAB 0 Refills Sertraline (Sertraline) 100 Mg Tab 100 MG PO BID, #30 TAB 0 Refills Debra Lundy MD Aug 09, 2017 09:14
[2017-08-09] MEDS ORDERED: OMEP20TA PO (09:18)
== END 2017-08-09 12:07 | disposition home health service (06) | DRG 394 ==
LOC: PHED 16:46 → PHEDA 19:27 → N07A 21:56
PROVIDERS: ADMIT Hospitalist; ATTEND Hospitalist
PROC: 0F798DZ Dilation of Common Bile Duct with Intraluminal Device, Via Natural or Artificial Opening Endoscopic (ICD-10-PCS; 2017-08-05)
PROC: BF101ZZ Fluoroscopy of Bile Ducts using Low Osmolar Contrast (ICD-10-PCS; 2017-08-05)
PROC: 0FC98ZZ Extirpation of Matter from Common Bile Duct, Via Natural or Artificial Opening Endoscopic (ICD-10-PCS; principal; 2017-08-05 13:23)
DX: K91.86 Retained cholelithiasis following cholecystectomy (principal); N17.9 Acute kidney failure, unspecified; E11.22 Type 2 diabetes mellitus with diabetic chronic kidney disease; E11.40 Type 2 diabetes mellitus with diabetic neuropathy, unspecified; D64.9 Anemia, unspecified; E78.5 Hyperlipidemia, unspecified; G47.30 Sleep apnea, unspecified; I12.9 Hypertensive chronic kidney disease with stage 1 through stage 4 chronic kidney disease, or unspecified chronic kidney disease; I25.10 Atherosclerotic heart disease of native coronary artery without angina pectoris; N18.9 Chronic kidney disease, unspecified; N40.0 Benign prostatic hyperplasia without lower urinary tract symptoms; Z96.651 Presence of right artificial knee joint; R29.6 Repeated falls; Y83.6 Removal of other organ (partial) (total) as the cause of abnormal reaction of the patient, or of later complication, without mention of misadventure at the time of the procedure; R19.7 Diarrhea, unspecified; Z79.4 Long term (current) use of insulin; Z95.5 Presence of coronary angioplasty implant and graft; Z98.2 Presence of cerebrospinal fluid drainage device; Z87.820 Personal history of traumatic brain injury; Z86.73 Personal history of transient ischemic attack (TIA), and cerebral infarction without residual deficits; Z23 Encounter for immunization; Z85.820 Personal history of malignant melanoma of skin; Z91.81 History of falling
CPT/HCPCS: 70250; 71010; 72040; 74000; 74177; 74330; 76700; 80053; 80069; 80076; 82948; 83690; 83735; 85025; 85610; 90686; 93005; C1769; C2625; C9113; J0330; J1170; J2250; J2370; J3010; Q2038; Q9963; Q9967

== ENCOUNTER 2018-01-06 12:36 | Emergency (ER) | payer OTHER ==
[~2018-01-06] VITALS: Ht 177.8 cm; Wt 103.0 kg
[~2018-01-06 12:36] MED LIST changes: -ASPI81TA11 PO; +ASPI81TA23 PO; -ATOR1TAB18 PO; +ATOR80TA45 PO; -OMEP20TA PO; +OMEP20TA93 PO
[2018-01-06 13:01] VITALS: BP 82/53; PULSE 96; RESP 16; TEMP 98.5; O2SAT 95
[2018-01-06 13:41] VITALS: O2SAT 96
[2018-01-06] MEDS ORDERED: SODIUM CHLORIDE 0.9% FLUSH 10 ML FLUSH IVF PRN (13:45)
--- NOTE | 2018-01-06 13:49 | PD ---
HPI Chief Complaint: GI Complaint Time Seen by Provider: 13:26 Travel History International Travel<30 days: No Contact w/Intl Traveler<30days: No Traveled to known affect area: No History of Present Illness HPI This patient complains of pain in his left low rib cage. Duration 7 hours. There is been no injury. It's worse with movement or deep breath. He has no hemoptysis. Yesterday he had endoscopy to remove a common bile duct stent but he reports no, location and went home yesterday as an outpatient procedure. No alleviating factors. No exacerbating factors. PFSH Past Medical History Hx Anticoagulant Therapy: Yes (asa 81mg) Arthritis: Yes Depression: Yes Cancer: Yes (skin canncer) Cardiovascular Problems: Yes (htn on meds) High Cholesterol: Yes Chemotherapy: No Cerebrovascular Accident: Yes (mini) Coronary Artery Disease: Yes Diabetes: Yes (type 1) Patient Takes Glucophage: No Gastrointestinal Disorders: Yes Genitourinary: Yes Headaches: Yes Hypertension: Yes Implanted Vascular Access Dvce: Yes Musculoskeletal: Yes Neurologic: Yes Psychiatric: Yes Respiratory: No Immunizations Current: Yes Radiation Therapy: No Renal Failure: Yes (stage 3) Past Surgical History Abdominal Surgery: Yes (appendix, gallbladder) Appendectomy: Yes Body Medical Devices: shunt madonna Cardiac Surgery: Yes (stents) Cholecystectomy: Yes Coronary Stent: Yes Eye Surgery: Yes (eyelid sx) Joint Replacement: Yes (right knee) Neurologic Surgery: Yes (SHUNT IN BRAIN) Tonsillectomy: Yes Other Surgery: Yes Social History Alcohol Use: Yes (OCC) Tobacco Use: No (FORMER) Substance Use: No Allergies-Medications (Allergen,Severity, Reaction): Coded Allergies: lisinopril (Unverified Allergy, Intermediate, COUGH, 01/06/18) Reported Meds & Prescriptions Reported Meds & Active Scripts Active Omeprazole 20 Mg Tab 40 Mg PO DAILY Zofran (Ondansetron HCl) 4 Mg Tab 4 Mg PO Q6HR PRN Reported Lantus Inj (Insulin Glargine) 1,000 Unit/10 Ml Vial 22 Units SQ DAILY Sertraline (Sertraline HCl) 100 Mg Tab 100 Mg PO BID Mirtazapine 15 Mg Tab 15 Mg PO HS Metoprolol Tartrate 25 Mg Tab 12.5 Mg PO BID Magnesium Oxide 400 Mg Tab 400 Mg PO DAILY Losartan (Losartan Potassium) 100 Mg Tab 100 Mg PO DAILY Galantamine ER (Galantamine Hydrobromide) 16 Mg Caper 16 Mg PO DAILY Atorvastatin (Atorvastatin Calcium) 80 Mg Tab 80 Mg PO HS Aspirin EC (Aspirin) 81 Mg Tabdr 81 Mg PO DAILY Alfuzosin ER 24 HR 10 Mg Tab 10 Mg PO DAILY Review of Systems General / Constitutional: No: Fever Eyes: No: Visual changes HENT: No: Headaches Cardiovascular: Positive: Chest Pain or Discomfort Respiratory: No: Shortness of Breath Gastrointestinal: No: Abdominal Pain Genitourinary: No: Dysuria Musculoskeletal: Positive: Pain Skin: No Rash Neurologic: No: Weakness Psychiatric: No: Depression Endocrine: No: Polydipsia Hematologic/Lymphatic: No: Easy Bruising Physical Exam Narrative GENERAL: Well-nourished, well-developed patient with left sided rib cage pain SKIN: Focused skin assessment reveals no rash and nodules. Skin is Warm and dry. HEAD: Atraumatic. Normocephalic. EYES: Pupils equal and round. No scleral icterus. No injection or drainage. ENT: No nasal bleeding or discharge. Mucous membranes pink and moist. NECK: Trachea midline. No JVD. CARDIOVASCULAR: Regular rate and rhythm. No murmur appreciated. RESPIRATORY: No accessory muscle use. Clear to auscultation. Breath sounds equal bilaterally. GASTROINTESTINAL: Abdomen soft, non-tender, nondistended. Hepatic and splenic margins not palpable. MUSCULOSKELETAL: No obvious deformities. No clubbing. No cyanosis. Trace symmetric lower extremity edema. NEUROLOGICAL: Awake and alert. No obvious cranial nerve deficits. Motor grossly within normal limits. Normal speech. PSYCHIATRIC: Appropriate mood and affect; insight and judgment normal. Data Data Last Documented VS Vital Signs Date Time Temp Pulse Resp B/P (MAP) Pulse Ox O2 Delivery O2 Flow Rate FiO2 01/06/18 16:36 88 20 104/55 (71) 95 01/06/18 14:23 98.2 Room Air Orders Orders Complete Blood Count With Diff (01/06/18 13:36) Basic Metabolic Panel (Bmp) (01/06/18 13:36) D-Dimer (01/06/18 13:36) Act Partial Throm Time (Ptt) (01/06/18 13:36) Prothrombin Time / Inr (Pt) (01/06/18 13:36) Iv Access Insert/Monitor (01/06/18 13:36) Electrocardiogram (01/06/18 13:36) Ecg Monitoring (01/06/18 13:36) Oximetry (01/06/18 13:36) Chest, Single Ap (01/06/18 13:36) Sodium Chloride 0.9% Flush (Ns Flush) (01/06/18 13:45) Sodium Chlorid 0.9% 500 Ml Inj (Ns 500 M (01/06/18 14:00) Labs Laboratory Tests Test 01/06/18 13:40 White Blood Count 18.5 TH/MM3 Red Blood Count 3.91 MIL/MM3 Hemoglobin 12.2 GM/DL Hematocrit 34.7 % Mean Corpuscular Volume 88.6 FL Mean Corpuscular Hemoglobin 31.1 PG Mean Corpuscular Hemoglobin Concent 35.2 % Red Cell Distribution Width 13.2 % Platelet Count 165 TH/MM3 Mean Platelet Volume 9.1 FL Neutrophils (%) (Auto) 85.3 % Lymphocytes (%) (Auto) 5.0 % Monocytes (%) (Auto) 8.0 % Eosinophils (%) (Auto) 0.2 % Basophils (%) (Auto) 1.5 % Neutrophils # (Auto) 15.8 TH/MM3 Lymphocytes # (Auto) 0.9 TH/MM3 Monocytes # (Auto) 1.5 TH/MM3 Eosinophils # (Auto) 0.0 TH/MM3 Basophils # (Auto) 0.3 TH/MM3 CBC Comment DIFF FINAL Differential Comment Prothrombin Time 11.9 SEC Prothromb Time International Ratio 1.2 RATIO Activated Partial Thromboplast Time 28.9 SEC D-Dimer Quantitative (PE/DVT) 1.56 MG/L FEU Blood Urea Nitrogen 27 MG/DL Creatinine 2.50 MG/DL Random Glucose 162 MG/DL Calcium Level 7.8 MG/DL Sodium Level 139 MEQ/L Potassium Level 3.6 MEQ/L Chloride Level 108 MEQ/L Carbon Dioxide Level 23.0 MEQ/L Anion Gap 8 MEQ/L Estimat Glomerular Filtration Rate 25 ML/MIN MDM Medical Decision Making Medical Screen Exam Complete: Yes Emergency Medical Condition: Yes Medical Record Reviewed: Yes Differential Diagnosis Muscular skeletal pain, PE, pleurisy Narrative Course I have reviewed the patient's electronic medical record. By history and exam it seems more likely to be musculoskeletal. However there is no injury He did have brief anesthesia for an endoscopy yesterday but had no surgery. Clinical presentation is low risk for PE I will obtain a d-dimer realizing that is likely to be elevated given his age Other labs sent I reviewed his chest x-ray which shows no pneumothorax or rib fracture or consolidation I reviewed his EKG which shows no acute ST elevation Initial blood pressure marked is very low in 80s but upon arrival he is at 106 systolic Blood pressures remained stable between 105 and 1:15 systolic throughout I looked at his labs. He has significant renal insufficiency but this is chronic. He does have a transportation security officer he follows with regularly. I noted that it has worsened and the patient is aware and with his transportation security officer with a call tomorrow I do not suspect he has PE I expected the d-dimer to be elevated but thought it worth it tiny chance Given his elevated creatinine and is not worth the risk for CTA On recheck he is much better and his pain is mostly resolved. He is not short of breath I offered him pain medication but he declines Diagnosis Primary Impression: Left-sided chest wall pain Additional Instructions: The patient was advised to follow up with their physician and return if they worsen. Med/Other Pt SpecificInfo: Other Disposition: 01 DISCHARGE HOME Condition: Stable Thomas Siegel MD Jan 06, 2018 13:48
[2018-01-06 13:51] VITALS: BP 98/59; PULSE 83; RESP 20; O2SAT 98
[2018-01-06 13:59] LABS: AUTOMATED NEUTROPHIL # 15.8 TH/MM3 (1.8-7.7); BASOPHIL # 0.3 TH/MM3 (0-0.2); BASOPHIL % 1.5 % (0.0-2.0); EOSINOPHIL % 0.2 % (0.0-4.0); HEMATOCRIT 34.7 % (39.0-51.0); HEMOGLOBIN 12.2 GM/DL (13.0-17.0); LYMPHOCYTE # 0.9 TH/MM3 (1.0-4.8); MEAN CELL VOLUME 88.6 FL (80.0-100.0); MEAN CORPUSCULAR HEMOGLOBIN 31.1 PG (27.0-34.0); MEAN CORPUSCULAR HGB CONC 35.2 % (32.0-36.0); MEAN PLATELET VOLUME 9.1 FL (7.0-11.0); MONOCYTE # 1.5 TH/MM3 (0-0.9); NEUT % 85.3 % (16.0-70.0); PLATELET COUNT 165 TH/MM3 (150-450); RED BLOOD COUNT 3.91 MIL/MM3 (4.50-5.90); RED CELL DISTRIBUTION WIDTH 13.2 % (11.6-17.2); WHITE BLOOD COUNT 18.5 TH/MM3 (4.0-11.0)
[2018-01-06] MEDS ORDERED: SODIUM CHLORID 0.9% 500 ML INJ 500 ML IV SCH (14:00)
[2018-01-06 14:01] LABS: CALCIUM 7.8 MG/DL (8.5-10.1)
--- NOTE | 2018-01-06 14:03 | RADRPT ---
EXAM DATE/TIME: 01/06/2018 13:46 [facility] COMPARISON: SHUNT SERIES, August 05, 2017, 16:35. INDICATIONS : Patient complains of nausea and vomiting post procedure. MEDICAL HISTORY : Hypertension. CVA. Shunt. Coronary artery disease. Renal failure. Diabetes. SURGICAL HISTORY : Appendectomy. Cholecystectomy. Cardiac stents. ENCOUNTER: Initial ACUITY: 2 days PAIN SCORE: 5/10 LOCATION: Bilateral chest FINDINGS: The heart is normal in size. There mild chronic appearing interstitial changes. The lungs are otherwi se clear. Visualized bony structures are grossly intact. Incidental note is made of tubing from the karley shamika's ventriculoperitoneal shunt. CONCLUSION: 1. Chronic appearing interstitial changes. No acute abnormality. Leo Pascual MD on January 06, 2018 at 14:00 Board Certified Radiologist. This report was verified electronically.
[2018-01-06 14:05] LABS: CREATININE 2.5 MG/DL (0.60-1.30)
[2018-01-06 14:11] LABS: INTERNATIONAL NORMALIZED RATIO 1.2 RATIO; PROTHROMBIN TIME - PATIENT 11.9 SEC (9.8-11.6)
[2018-01-06 14:23] VITALS: BP 101/60; PULSE 85; RESP 18; TEMP 98.2; O2SAT 93
[2018-01-06 14:55] LABS: D-DIMER 1.56 MG/L FEU (0.00-0.50)
[2018-01-06 15:11] VITALS: BP 90/55; PULSE 72; RESP 20; O2SAT 94
[2018-01-06 16:36] VITALS: BP 104/55; PULSE 88; RESP 20; O2SAT 95
--- NOTE | 2018-01-07 14:21 | EKG ---
Date Performed: 01/06/2018 Time Performed: 13:47:07 PTAGE: 77 years EKG: Sinus rhythm BORDERLINE LEFT AXIS DEVIATION LEFT VENTRICULAR HYPERTROPHY AND ST-T CHANGE ABNORMAL ECG PREVIOUS TRACING : 08/05/2017 11.16 Possible anteroseptal myocardial infarction - age undetermi mark, but largely unchanged from prior tracing. DOCTOR: Jose Costa Interpretating Date/Time 01/07/2018 14:21:13
== END 2018-01-06 17:56 | disposition home or self-care (01) ==
LOC: PHED 12:36
DX: R07.89 Other chest pain (principal); I12.9 Hypertensive chronic kidney disease with stage 1 through stage 4 chronic kidney disease, or unspecified chronic kidney disease; E10.22 Type 1 diabetes mellitus with diabetic chronic kidney disease; N18.3 Chronic kidney disease, stage 3 (moderate); E78.00 Pure hypercholesterolemia, unspecified; R94.31 Abnormal electrocardiogram [ECG] [EKG]; M19.90 Unspecified osteoarthritis, unspecified site; F32.9 Major depressive disorder, single episode, unspecified; Z85.828 Personal history of other malignant neoplasm of skin; Z87.891 Personal history of nicotine dependence; Z86.73 Personal history of transient ischemic attack (TIA), and cerebral infarction without residual deficits; Z95.5 Presence of coronary angioplasty implant and graft; Z79.4 Long term (current) use of insulin; Z79.899 Other long term (current) drug therapy
CPT/HCPCS: 71045; 80048; 85025; 85379; 85610; 85730; 93005; 96360; 96361; 99285; J7040

== ENCOUNTER 2018-05-23 17:04 | Inpatient (IN) ==
--- NOTE | 2018-05-23 22:12 | ED ---
HPI General Chief complaint: Neuro Symptoms/Deficit Stated complaint: [facility] Confused Time Seen by Provider: 05/23/18 22:10 Source: patient History of Present Illness HPI narrative: The patient is a 77 year old male who presents to the [facility] emergency department with a history of increased confusion, increased difficulty with his memory, hallucinations, difficulty sleeping since he fell 2 and half weeks ago according to his at the bedside. The patient was seen in the emergency department regarding this fall. The patient came with his daughter, therefore his is unsure what images were done at that time. The patient reports that he did hit his head. He is unsure whether a CT scan of the brain was done. He has been complaining of neck pain and bilateral shoulder pain. The patient continued to have pain with difficulty sleeping and came back to the emergency department as directed by his [place] primary care physician on Wednesday, 6 days ago. At that time his tramadol that he is on for chronic pain was discontinued and the patient was started on hydrocodone and cyclobenzaprine. The patient's reports that he continues to have pain and confusion. She reports that yesterday he spent 4 hours taking on and off is closed. He is also been hallucinating seeing people. He denies having any numbness or tingling to his arms or legs. He denies having any new weakness of his arms or legs. He denies having any chest pain, chest pressure, or shortness of breath. He reports having a left-sided rib cage pain. On review of systems otherwise, he denies known recent fevers, cough, congestion, abdominal pain, vomiting, diarrhea, urinary symptoms, or neurologic symptoms. Related Data Home Medications Medication Instructions Recorded Confirmed alfuzosin 10 mg PO DAILY 05/13/18 05/24/18 aspirin 81 mg PO DAILY 05/13/18 05/24/18 atorvastatin 80 mg PO DAILY 05/13/18 05/24/18 divalproex 1,000 mg PO DAILY 05/13/18 05/24/18 docusate sodium 100 mg PO DAILY 05/13/18 05/24/18 folic acid 1 mg PO DAILY 05/13/18 05/24/18 furosemide 20 mg PO DIRECTED 05/13/18 05/24/18 galantamine 16 mg PO QAM 05/13/18 05/24/18 losartan 50 mg PO DAILY 05/13/18 05/24/18 metoprolol tartrate 12.5 mg PO BID 05/13/18 05/24/18 mirtazapine 15 mg PO DAILY 05/13/18 05/24/18 olanzapine 5 mg PO DAILY 05/13/18 05/24/18 omeprazole 20 mg PO DAILY 05/13/18 05/24/18 sertraline 100 mg PO BID 05/13/18 05/24/18 tramadol 50 mg PO QID 05/13/18 05/24/18 ursodiol 250 mg PO BID 05/13/18 05/24/18 insulin aspart U-100 28 unit SUB-Q DAILY 05/17/18 05/24/18 Previous Rx's Medication Instructions Recorded cyclobenzaprine 10 mg PO TID PRN #20 tab 05/17/18 hydrocodone-acetaminophen [[place]] 1 tab PO Q4H PRN #20 tab 05/17/18 Allergies Allergy/AdvReac Type Severity Reaction Status Date / Time lisinopril Allergy Intermediate COUGH Verified 05/17/18 13:13 Review of Systems ROS Unobtainable All other systems reviewed negative except as stated in HPI Constitutional Denies fever(s) Eyes Denies change in vision ENT Denies headache(s) and Denies nasal congestion Cardiovascular Reports chest pain (left sided lateral chest wall pain) Respiratory Denies dyspnea Gastrointestinal Denies abdominal pain Genitourinary Denies difficulty urinating Musculoskeletal Denies myalgias Integumentary/Breasts Denies rash Neurologic Reports abnormal speech, Reports behavioral changes and Reports headache(s) ( reportedly chronic headaches) Psychiatric Reports behavioral changes, Reports confusion, Denies depression, Reports irritability and Reports mood swings Endocrine Denies polyuria Hematologic/Lymphatic Denies easy bruising PMFSH History History Provided By: Patient and Family Member Medical History Medical History Cholecystectomy planned (Acute) Dementia (Acute) HTN (hypertension) (Acute) High cholesterol (Acute) Prostate disorder (Acute) TBI (traumatic brain injury) (Acute) Surgical History Surgical History History of appendectomy (Acute) History of tonsillectomy (Acute) History of total right knee replacement (Acute) History of ventriculoperitoneal shunting (Acute) Social History Social History Substance History: No History of Abuse Second Hand Smoke Exposure: No Smoking Status: Never smoker How Often Do You Have a Drink Containing Alcohol: Never Recent Travel in [facility] within the Last 8 Weeks: No Recent Out of Country Travel within the Last 8 Weeks: No Exam Const General: cooperative, no acute distress and well developed Nutritional Appearance: well nourished Orientation: alert, awake and oriented x3 HENKS Head: normocephalic and other (The patient has an abrasion along the right side of the top of the scalp which she reports is related to his dog. There is no evidence of infection. No step-off or crepitus.) Nose: no nasal discharge and no epistaxis Mouth: moist mucous membranes Throat: posterior oropharynx normal Eyes Sclera: normal sclerae Pupils: PERRL Neck Neck: no meningeal signs, trachea midline, no midline deformity, no JVD and other (No spinous process tenderness to palpation. No step-off or crepitus. No erythema or ecchymosis. The patient has right-sided trapezius tenderness on palpation.) Chest Chest: normal inspection of the chest and tenderness (Left sided lateral anterior axillary line tenderness on palpation over the ribs. There is no crepitus or step-off. No erythema or ecchymosis. No flail segment.) Resp Effort & Inspection: no use of accessory muscles Auscultation: clear to auscultation bilaterally Cardio Rate: regular rate Rhythm: regular rhythm Heart Sounds: no murmurs GI Inspection: non-distended Palpation: soft, no hepatosplenomegaly and nontender Back/Spine/Pelvis Back: no CVA tenderness Cervical Spine: normal cervical lordosis and No cervical spinal tenderness Thoracic/Lumbar Spine: No thoracic spinal tenderness and No lumbar spinal tenderness Pelvis: no pain with anterior-posterior compression Skin General: dry skin (warm) Neuro General: alert, awake and oriented x3 Cranial Nerves: CN's II-XI intact bilaterally Speech: abnormal speech (Patient at times has difficulty finding words. He reports that he has had problems with this since a traumatic brain injury. The patient is able to communicate, however he has to stop intermittently to think of exactly what he is trying to say.) Motor: strength 5/5 throughout and no movement abnormalities noted Sensory Exam: no sensory deficits noted Extrem General: normal to inspection (No calf tenderness on palpation.), no clubbing, no cyanosis and no edema Right upper extremity: normal to inspection Left upper extremity: normal to inspection Right lower extremity: normal to inspection Left lower extremity: normal to inspection Psych Mood: congruent mood Affect: normal affect Judgment: judgment good Course Consultations Consultation #1: The patient's case including history, pertinent physical examination findings, and laboratory studies were discussed with Dr. Torrez. It was agreed that the patient would be admitted to the hospitalist service. Initial Documented Vital Signs Temperature 98.3 F 05/23/18 17:36 Pulse Rate 71 05/23/18 17:36 Respiratory Rate 17 05/23/18 17:36 Blood Pressure 157/70 H 05/23/18 17:36 Pulse Oximetry 97 05/23/18 17:36 Last Documented Vital Signs Temperature 97.8 F 05/24/18 15:00 Pulse Rate 57 L 05/24/18 15:00 Respiratory Rate 18 05/24/18 15:00 Blood Pressure 151/83 H 05/24/18 15:00 Pulse Oximetry 97 05/24/18 15:23 Medical Decision Making MDM Narrative Medical decision making narrative: During the course of the patient's emergency department visit, the patient's history, examination, and differential diagnosis were reviewed with the patient. The patient was placed on a classroom monitor with oximetry and frequent blood pressure monitoring. The patient had IV access obtained and blood work sent for analysis. A diagnostic evaluation was started regarding the patient's altered mentation. A CT scan of the head and neck has been ordered regarding the patient's recent falls. The patient was initially provided normal saline IV fluids. The patient's laboratory studies are remarkable for a white count of 8.8, platelets 241, monocytosis at 8.2, hemoglobin 13.4, PT 11.1, PTT 33.1, chemistry is remarkable for a troponin I of less than 0.02, glucose 147, GFR 36 , creatinine 1.82, AST is 9. Urinalysis shows small occult blood few mucus, otherwise unremarkable. CT scan of the brain shows no acute hemorrhage or mass-effect, moderate atrophic changes again noted, interval placement of ventricular shunt catheter. CT scan of the C-spine shows no acute fracture, grade 1 anterior spondylolisthesis of C3 on C4, moderate degenerative changes at the C4-C5 C5-C6 level, chest x-ray shows no acute cardiopulmonary disease. The patient will be admitted to the hospital for continued observation regarding increased alteration of mentation, possibly medication related versus progression of dementia with behavioral disturbances. The patient's results were discussed with the patient, including the plan of care. I explained that further testing and/ or monitoring is indicated based on the patient's history, examination, and/ or laboratory findings. Therefore, I recommended admission for additional evaluation. The patient expressed understanding and was agreeable with this plan. The patient was admitted to the hospital in stable condition and sent to a bed under the care of service. Differential Diagnosis Differential Diagnosis: Intracranial trauma, versus cervical spine trauma, versus encephalopathy, versus dementia with behavioral disturbances Medical Records Medical records reviewed: Yes I reviewed the patient's medical records. Lab Data Lab results reviewed: Yes I reviewed the patient's lab results. Result diagrams: 05/23/18 22:55 05/23/18 22:55 Lab Results 05/23/18 05/23/18 05/23/18 Range/Units 22:55 22:55 22:55 WBC 8.8 (4.0-11.0) th/mm3 RBC 4.37 L (4.50-5.90) mil/mm3 Hgb 13.4 (13.0-17.0) gm/dL Hct 39.6 (39.0-51.0) % MCV 90.5 (80.0-100.0) fL MCH 30.6 (27.0-34.0) pg MCHC 33.8 (32.0-36.0) % RDW 12.8 (11.6-17.2) % Plt Count 241 (150-450) th/mm3 MPV 8.5 (7.0-11.0) fL Neut % (Auto) 52.9 (16.0-70.0) % Lymph % (Auto) 32.8 (9.0-44.0) % [place] % (Auto) 8.2 H (0.0-8.0) % Eos % (Auto) 4.9 H (0.0-4.0) % Baso % (Auto) 1.2 (0.0-2.0) % Neut # (Auto) 4.6 (1.8-7.7) th/mm3 Lymph # (Auto) 2.9 (1.0-4.8) th/mm3 [place] # (Auto) 0.7 (0.0-0.9) th/mm3 Eos # (Auto) 0.4 (0.0-0.4) th/mm3 Baso # (Auto) 0.1 (0.0-0.2) th/mm3 WBC Differential . Differential Comment Auto diff final PT 11.1 (9.8-11.6) sec INR 1.1 Ratio APTT 33.1 H (24.3-30.1) sec Sodium 141 (136-145) meq/L Potassium 3.7 (3.5-5.1) meq/L Chloride 106 (98-107) meq/L Carbon Dioxide 29.2 (21.0-32.0) meq/L Anion Gap 6 (5-15) meq/L BUN 17 (7-18) mg/dL Creatinine 1.82 H (0.60-1.30) mg/dL Estimated GFR 36 L (>89) mL/min POC Glucose (68-110) mg/dl Random Glucose 147 H (74-106) mg/dL Calcium 8.9 (8.5-10.1) mg/dL Total Bilirubin 0.3 (0.2-1.0) mg/dL AST 9 L (15-37) U/L ALT 17 (12-78) U/L Alkaline Phosphatase 101 (45-117) U/L Ammonia (11-32) mcmol/L Total Creatine Kinase 70 (39-308) U/L Troponin I Less than 0.02 L (0.02-0.05) ng/mL Total Protein 7.7 (6.4-8.2) g/dL Albumin 3.6 (3.4-5.0) g/dL Lipase 206 (73-393) U/L TSH 1.410 (0.358-3.740) uIU/mL Urine Color (Yellw/Straw) Urine Clarity (Clear) Urine pH (5.0-8.5) Ur Specific [place] (1.002-1.035) Urine Protein (Neg-Trace) mg/dL Urine Glucose (UA) (Negative) mg/dL Urine Ketones (Negative) mg/dL Urine Occult Blood (Negative) Urine Nitrate (Negative) Urine Bilirubin (Negative) Urine Urobilinogen (Less than 2) mg/dL Ur Leukocyte Esterase (Negative) Urine RBC (0-3) /hpf Urine WBC (0-5) /hpf Hyaline Casts (0-3) /lpf Urine Mucus (Occasional) /lpf Micro UA Comment Urine Culture Comments Urine Opiates Screen (Neg) Ur Barbiturates Screen (Neg) Ur Amphetamines Screen (Neg) U Benzodiazepines Scrn (Neg) Urine Cocaine Screen (Neg) U Cannabinoids Screen (Neg) Serum Alcohol Less than 3 (0-5) mg/dL 05/23/18 05/23/18 05/23/18 Range/Units 22:55 23:54 23:54 WBC (4.0-11.0) th/mm3 RBC (4.50-5.90) mil/mm3 Hgb (13.0-17.0) gm/dL Hct (39.0-51.0) % MCV (80.0-100.0) fL MCH (27.0-34.0) pg MCHC (32.0-36.0) % RDW (11.6-17.2) % Plt Count (150-450) th/mm3 MPV (7.0-11.0) fL Neut % (Auto) (16.0-70.0) % Lymph % (Auto) (9.0-44.0) % [place] % (Auto) (0.0-8.0) % Eos % (Auto) (0.0-4.0) % Baso % (Auto) (0.0-2.0) % Neut # (Auto) (1.8-7.7) th/mm3 Lymph # (Auto) (1.0-4.8) th/mm3 [place] # (Auto) (0.0-0.9) th/mm3 Eos # (Auto) (0.0-0.4) th/mm3 Baso # (Auto) (0.0-0.2) th/mm3 WBC Differential Differential Comment PT (9.8-11.6) sec INR Ratio APTT (24.3-30.1) sec Sodium (136-145) meq/L Potassium (3.5-5.1) meq/L Chloride (98-107) meq/L Carbon Dioxide (21.0-32.0) meq/L Anion Gap (5-15) meq/L BUN (7-18) mg/dL Creatinine (0.60-1.30) mg/dL Estimated GFR (>89) mL/min POC Glucose (68-110) mg/dl Random Glucose (74-106) mg/dL Calcium (8.5-10.1) mg/dL Total Bilirubin (0.2-1.0) mg/dL AST (15-37) U/L ALT (12-78) U/L Alkaline Phosphatase (45-117) U/L Ammonia 18 (11-32) mcmol/L Total Creatine Kinase (39-308) U/L Troponin I (0.02-0.05) ng/mL Total Protein (6.4-8.2) g/dL Albumin (3.4-5.0) g/dL Lipase (73-393) U/L TSH (0.358-3.740) uIU/mL Urine Color Yellow (Yellw/Straw) Urine Clarity Clear (Clear) Urine pH 5.0 (5.0-8.5) Ur Specific [place] 1.012 (1.002-1.035) Urine Protein Negative (Neg-Trace) mg/dL Urine Glucose (UA) Negative (Negative) mg/dL Urine Ketones Negative (Negative) mg/dL Urine Occult Blood Small H (Negative) Urine Nitrate Negative (Negative) Urine Bilirubin Negative (Negative) Urine Urobilinogen Less than 2 (Less than 2) mg/dL Ur Leukocyte Esterase Negative (Negative) Urine RBC 1 (0-3) /hpf Urine WBC Less than 1 (0-5) /hpf Hyaline Casts 36 (0-3) /lpf Urine Mucus Few H (Occasional) /lpf Micro UA Comment Culture not ind Urine Culture Comments Culture not ind Urine Opiates Screen Neg (Neg) Ur Barbiturates Screen Neg (Neg) Ur Amphetamines Screen Neg (Neg) U Benzodiazepines Scrn Pos H (Neg) Urine Cocaine Screen Neg (Neg) U Cannabinoids Screen Neg (Neg) Serum Alcohol (0-5) mg/dL 05/24/18 Range/Units 12:18 WBC (4.0-11.0) th/mm3 RBC (4.50-5.90) mil/mm3 Hgb (13.0-17.0) gm/dL Hct (39.0-51.0) % MCV (80.0-100.0) fL MCH (27.0-34.0) pg MCHC (32.0-36.0) % RDW (11.6-17.2) % Plt Count (150-450) th/mm3 MPV (7.0-11.0) fL Neut % (Auto) (16.0-70.0) % Lymph % (Auto) (9.0-44.0) % [place] % (Auto) (0.0-8.0) % Eos % (Auto) (0.0-4.0) % Baso % (Auto) (0.0-2.0) % Neut # (Auto) (1.8-7.7) th/mm3 Lymph # (Auto) (1.0-4.8) th/mm3 [place] # (Auto) (0.0-0.9) th/mm3 Eos # (Auto) (0.0-0.4) th/mm3 Baso # (Auto) (0.0-0.2) th/mm3 WBC Differential Differential Comment PT (9.8-11.6) sec INR Ratio APTT (24.3-30.1) sec Sodium (136-145) meq/L Potassium (3.5-5.1) meq/L Chloride (98-107) meq/L Carbon Dioxide (21.0-32.0) meq/L Anion Gap (5-15) meq/L BUN (7-18) mg/dL Creatinine (0.60-1.30) mg/dL Estimated GFR (>89) mL/min POC Glucose 98 (68-110) mg/dl Random Glucose (74-106) mg/dL Calcium (8.5-10.1) mg/dL Total Bilirubin (0.2-1.0) mg/dL AST (15-37) U/L ALT (12-78) U/L Alkaline Phosphatase (45-117) U/L Ammonia (11-32) mcmol/L Total Creatine Kinase (39-308) U/L Troponin I (0.02-0.05) ng/mL Total Protein (6.4-8.2) g/dL Albumin (3.4-5.0) g/dL Lipase (73-393) U/L TSH (0.358-3.740) uIU/mL Urine Color (Yellw/Straw) Urine Clarity (Clear) Urine pH (5.0-8.5) Ur Specific [place] (1.002-1.035) Urine Protein (Neg-Trace) mg/dL Urine Glucose (UA) (Negative) mg/dL Urine Ketones (Negative) mg/dL Urine Occult Blood (Negative) Urine Nitrate (Negative) Urine Bilirubin (Negative) Urine Urobilinogen (Less than 2) mg/dL Ur Leukocyte Esterase (Negative) Urine RBC (0-3) /hpf Urine WBC (0-5) /hpf Hyaline Casts (0-3) /lpf Urine Mucus (Occasional) /lpf Micro UA Comment Urine Culture Comments Urine Opiates Screen (Neg) Ur Barbiturates Screen (Neg) Ur Amphetamines Screen (Neg) U Benzodiazepines Scrn (Neg) Urine Cocaine Screen (Neg) U Cannabinoids Screen (Neg) Serum Alcohol (0-5) mg/dL Imaging Data Radiologist's impression: Cervical Spine CT 05/23/18 22:33 CONCLUSION: 1. No acute fracture. 2. Grade 1 anterior spondylolisthesis of C3 on C4. 3. Moderate degenerative disc change at the C4-5 and C5-6 levels. Chest X-Ray 05/23/18 22:33 CONCLUSION: No acute cardiopulmonary disease. Head CT 05/23/18 22:33 CONCLUSION: 1. No acute hemorrhage or mass effect. 2. Moderate atrophic changes again noted. 3. Interval placement of ventricular shunt catheter. . ECG Data Attestation: I personally reviewed and interpreted this ECG as follows: Interpretation: The patient had an EKG done on arrival that shows a sinus rhythm heart rate of 67, QRS duration is 158 ms, QTC is 483 ms, left bundle branch block is noted. No acute ST segment changes are noted. Discharge Plan Discharge Disposition Patient Disposition: 30 Still Patient Discharge Details Diagnosis: Altered mental status Physicians Team ED Provider: Rosario Simons Primary Care Provider: [facility],Physician 's Attending Provider: Rigoberto Hernandez Discharge Interventions Interventions: ED Discharge Assessment Last Done: 05/24/18 07:48 Status ED Status: Left Department Discharge Information Discharge Date/Time: 05/24/18 07:48
--- NOTE | 2018-05-23 23:02 | XR ---
EXAM DATE: 05/23/2018 10:56 PM EDT AGE/SEX: 77 years / Male INDICATIONS: Cough, left lower chest pain CLINICAL DATA: This is the patient's initial encounter. Patient reports that signs and symptoms have been present for 1 day and indicates a pain score of 5/10. MEDICAL/SURGICAL HISTORY: None. Coronary artery stent. COMPARISON: [facility], RIBS LEFT MIN 3V W EXP CHEST, 05/13/2018. . FINDINGS: A single AP view of the chest demonstrates the lungs to be symmetrically aerated without evidence of mass, infiltrate or effusion. The cardiomediastinal contours are unremarkable. Osseous structures a re intact. Overlying shunt catheter tubing is again noted. CONCLUSION: No acute cardiopulmonary disease. Electronically signed by: David Winter MD 05/23/2018 11:01 PM EDT
[2018-05-23 23:07] LABS: Baso # (Auto) 0.1 th/mm3 (0.0-0.2); Baso % (Auto) 1.2 % (0.0-2.0); Eos # (Auto) 0.4 th/mm3 (0.0-0.4); Eos % (Auto) 4.9 % (0.0-4.0); Hematocrit 39.6 % (39.0-51.0); Hemoglobin 13.4 gm/dL (13.0-17.0); Lymph # (Auto) 2.9 th/mm3 (1.0-4.8); Lymph % (Auto) 32.8 % (9.0-44.0); Mean Corpuscular HGB Conc 33.8 % (32.0-36.0); Mean Corpuscular Hemoglobin 30.6 pg (27.0-34.0); Mean Corpuscular Volume 90.5 fL (80.0-100.0); Mean Platelet Volume 8.5 fL (7.0-11.0); Mono # (Auto) 0.7 th/mm3 (0.0-0.9); Mono % (Auto) 8.2 % (0.0-8.0); Neut # (Auto) 4.6 th/mm3 (1.8-7.7); Neut % (Auto) 52.9 % (16.0-70.0); Platelet Count 241 th/mm3 (150-450); Red Blood Count 4.37 mil/mm3 (4.50-5.90); Red Cell Distribution Width 12.8 % (11.6-17.2); White Blood Count 8.8 th/mm3 (4.0-11.0)
[2018-05-23] MEDS: Sod Chloride 0.9% Inj 1,000 ML IV.CONT SCH (23:11)
[2018-05-23 23:16] LABS: Activated Partial Thrombo Time 33.1 sec (24.3-30.1); INR 1.1 Ratio; Prothrombin Time 11.1 sec (9.8-11.6)
[2018-05-23 23:24] LABS: Alanine Aminotransferase 17 U/L (12-78); Albumin 3.6 g/dL (3.4-5.0); Anion Gap 6 meq/L (5-15); Aspartate Aminotransferase 9 U/L (15-37); Blood Urea Nitrogen 17 mg/dL (7-18); Calcium 8.9 mg/dL (8.5-10.1); Carbon Dioxide 29.2 meq/L (21.0-32.0); Chloride 106 meq/L (98-107); Glomerular Filtration Rate 36 mL/min (>89); Glucose,Random 147 mg/dL (74-106); Lipase 206 U/L (73-393); Potassium 3.7 meq/L (3.5-5.1); Sodium 141 meq/L (136-145)
[2018-05-23 23:34] LABS: Alkaline Phosphatase 101 U/L (45-117); Total Protein 7.7 g/dL (6.4-8.2)
[2018-05-23 23:40] LABS: Creatine Kinase 70 U/L (39-308)
--- NOTE | 2018-05-23 23:59 | CT ---
EXAM DATE: 05/23/2018 11:48 PM EDT AGE/SEX: 77 years / Male INDICATIONS: Trauma; fall. CLINICAL DATA: This is the patient's initial encounter. Patient reports that signs and symptoms have been present for 1 day and indicates a pain score of 5/10. MEDICAL/SURGICAL HISTORY: Hypertension. Dementia. tbi Tonsillectomy. RADIATION DOSE: 56.35 CTDI (mGy) COMPARISON: [facility], CT BRAIN W/O CONTRAST, 02/05/2016. . TECHNIQUE: CT of the head without contrast. Using automated exposure control and adjustment of the mA and/or kV according to patient size, radiation dose was kept as low as reasonably achievable to ob tain optimal diagnostic quality images. DICOM format image data is available electronically for revi ew and comparison. FINDINGS: Cerebrum: The ventricles are normal for age with moderate atrophic change with sulcal and ventricula r prominence. No evidence of midline shift, mass lesion, hemorrhage or acute infarction. No extraaxi al fluid collections are seen. There has been interval placement of an intraventricular shunt cathete r via right parietal approach. The tip is near the midline of the lateral ventricles. A Posterior Fossa: The cerebellum and brainstem are intact. The 4th ventricle is midline. The cerebe llopontine angle is unremarkable. Extracranial: The visualized portion of the orbits is intact. Skull: The calvaria is intact. No evidence of skull fracture. CONCLUSION: 1. No acute hemorrhage or mass effect. 2. Moderate atrophic changes again noted. 3. Interval placement of ventricular shunt catheter. . Electronically signed by: David Winter MD 05/23/2018 11:58 PM EDT
--- NOTE | 2018-05-24 00:01 | CT ---
EXAM DATE: 05/23/2018 11:50 PM EDT AGE/SEX: 77 years / Male INDICATIONS: Neck pain after trauma.. CLINICAL DATA: This is the patient's initial encounter. Patient reports that signs and symptoms have been present for 1 day and indicates a pain score of 5/10. MEDICAL/SURGICAL HISTORY: Dementia. Hypertension. tb Tonsillectomy. RADIATION DOSE: 21.05 CTDI (mGy) COMPARISON: No prior exams available for comparison. TECHNIQUE: Contiguous axial images were obtained using helical multirow detector technique. The vol umetric data was post-processed with multiplanar reconstruction in oblique axial, sagittal, and coron al planes. Using automated exposure control and adjustment of the mA and/or kV according to patient s ize, radiation dose was kept as low as reasonably achievable to obtain optimal diagnostic quality rico ges. DICOM format image data is available electronically for review and comparison. FINDINGS: Vertebrae: Normal vertebral body height. Discs: Degenerative disc changes are present at the C4-5 and C5-6 levels with disc space narrowing an d hypertrophic changes. Alignment: Is a mild grade 1 anterior spondylolisthesis of C3 on C4 of 2 to 3 mm. The axial images demonstrate that the vertebral bodies and posterior elements are intact. Degenerativ e changes are noted involving the atlantoaxial joint. CONCLUSION: 1. No acute fracture. 2. Grade 1 anterior spondylolisthesis of C3 on C4. 3. Moderate degenerative disc change at the C4-5 and C5-6 levels. Electronically signed by: David Winter MD 05/23/2018 11:59 PM EDT
[2018-05-24 00:18] LABS: Amphetamine Screen,Urine Neg (Neg); Barbiturate Screen,Urine Neg (Neg); Cannabinoid Screen,Urine Neg (Neg); Cocaine Screen,Urine Neg (Neg)
[2018-05-24 00:19] LABS: Opiate Screen,Urine Neg (Neg)
[2018-05-24 00:26] LABS: Bilirubin,Urine Negative (Negative); Clarity,Urine Clear (Clear); Color,Urine Yellow (Yellw/Straw); Glucose,Urine (UA) Negative (Negative); Hyaline Casts,Urine 36 /lpf (0-3); Leukocyte Esterase,Urine Negative (Negative); Mucus,Urine Few /lpf (Occasional); Nitrite,Urine Negative (Negative); Specific Gravity,Urine 1.012 (1.002-1.035)
[2018-05-24] MEDS ORDERED: Bisacodyl 10 MG Supp RECTAL PRN (01:57)
[2018-05-24] MEDS: Temazepam 15 MG Capsule PO PRN (05:54)
[2018-05-24] MEDS: Sod Chloride 0.9% Inj 1,000 ML IV.CONT SCH ×2 (06:55→16:53)
[2018-05-24] MEDS: Acetaminophen 325 MG Tablet PO PRN (16:55)
--- NOTE | 2018-05-24 18:13 | P.HP ---
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 He had mild dementia but in the last two weeks he has taken a rather drastic decline. He has had significant delusion such as mistaking his as his oldest daughter, wanting to go to see friends that are . He also sees friends from service years that he knows are now . Patient denies any chest pain, shortness of breath, fever, chills. Denies any abdominal pain, cough or changes in bowel or bladder habits. He goes to [place] where he has 100% service connection benefits. CT head, cervical spine CT and chest x-ray were unremarkable for any acute findings. Review of Systems All other systems reviewed negative except as stated in HPI PMFSH - History History Provided By: Patient, Family Member - Medical History Medical History: Medical History (Last Reviewed 05/23/18 @ 22:47 by Rosario Simons MD) Cholecystectomy planned Dementia HTN (hypertension) High cholesterol Prostate disorder TBI (traumatic brain injury) - Surgical History Surgical History: Surgical History (Last Reviewed 05/23/18 @ 22:47 by Rosario Simons MD) History of appendectomy History of tonsillectomy History of total right knee replacement History of ventriculoperitoneal shunting - Tobacco History Second Hand Smoke Exposure: No Tobacco Use In Past 30 Days: No Smoking Status: Never smoker - Alcohol History How Often Do You Have a Drink Containing Alcohol: Never - Substance Use History Substance History: No History of Abuse - Travel History Recent Travel in the [place] Within the Last 8 Weeks: No Recent Travel Out of the Country Within the Last 8 Weeks: No - Immunization History Tetanus Immunization: <5 Years Hx Influenza Vaccine This Season: Yes Medications and Allergies Active Medications: Active Medications Acetaminophen (Tylenol) 650 mg PO Q4H PRN PRN Reason: Fever, headache, pain 3-10 Last Admin: 05/24/18 16:55 Dose: 650 mg Al Hydroxide/Mg Hydroxide (Milk Of Magnesia Liq) 30 ml PO Q12H PRN PRN Reason: Mild Constipation Bisacodyl (Dulcolax Supp) 10 mg RECTAL DAILY PRN PRN Reason: SEVERE CONSITIPATION Sodium Chloride (Ns Inj) 1,000 mls @ 125 mls/hr IV.CONT .Q8H [facility] Last Admin: 05/24/18 16:53 Dose: 125 mls/hr Lactulose (Lactulose Liq) 30 ml PO DAILY PRN PRN Reason: SEVERE CONSITIPATION Sennosides (Senokot) 17.2 mg PO Q12H PRN PRN Reason: Moderate Constipation Sodium Chloride (Ns Flush) 2 ml IV.FLUSH PRN PRN PRN Reason: FLUSH AFTER USING IV ACCESS Temazepam (Restoril) 15 mg PO HS PRN PRN Reason: INSOMNIA Last Admin: 05/24/18 05:54 Dose: 15 mg Allergies Allergy/AdvReac Type Severity Reaction Status Date / Time lisinopril Allergy Intermediate COUGH Verified 05/17/18 13:13 Home Medications Medication Instructions Recorded Confirmed Type alfuzosin 10 mg PO DAILY 05/13/18 05/24/18 History aspirin 81 mg PO DAILY 05/13/18 05/24/18 History atorvastatin 80 mg PO DAILY 05/13/18 05/24/18 History divalproex 1,000 mg PO DAILY 05/13/18 05/24/18 History docusate sodium 100 mg PO DAILY 05/13/18 05/24/18 History folic acid 1 mg PO DAILY 05/13/18 05/24/18 History furosemide 20 mg PO DIRECTED 05/13/18 05/24/18 History galantamine 16 mg PO QAM 05/13/18 05/24/18 History losartan 50 mg PO DAILY 05/13/18 05/24/18 History metoprolol tartrate 12.5 mg PO BID 05/13/18 05/24/18 History mirtazapine 15 mg PO DAILY 05/13/18 05/24/18 History olanzapine 5 mg PO DAILY 05/13/18 05/24/18 History omeprazole 20 mg PO DAILY 05/13/18 05/24/18 History sertraline 100 mg PO BID 05/13/18 05/24/18 History tramadol 50 mg PO QID 05/13/18 05/24/18 History ursodiol 250 mg PO BID 05/13/18 05/24/18 History insulin aspart U-100 28 unit SUB-Q DAILY 05/17/18 05/24/18 History Exam Vital signs: Vital Signs 05/24/18 03:19 05/24/18 04:10 05/24/18 07:58 Temperature 97.5 F L Pulse Rate 67 58 L 60 Respiratory Rate 18 18 18 Blood Pressure 192/84 H 129/78 179/85 H Pulse Oximetry 99 97 97 05/24/18 08:00 05/24/18 09:00 05/24/18 11:00 Temperature 97.9 F Pulse Rate 64 65 Respiratory Rate 18 Blood Pressure 169/83 H Pulse Oximetry 97 97 05/24/18 15:00 05/24/18 15:23 Temperature 97.8 F Pulse Rate 57 L Respiratory Rate 18 Blood Pressure 151/83 H Pulse Oximetry 96 97 Intake & Output 05/23/18 05/24/18 05/24/18 18:59 06:59 18:59 Intake Total 1000 / 1000 1480 / 1480 Output Total 450 / 450 600 / 600 Balance 550 / 550 880 / 880 Weight 102.058 kg Intake: IV 1000 / 1000 1000 / 1000 NS Inj 1,000 ML @ 125 mls/hr IV 1000 / 1000 1000 / 1000 .CONT .Q8H [facility] Rx#:[id number] Oral 480 / 480 Output: Urine 450 / 450 600 / 600 Other: # Voids 3 Narrative: GENERAL: This is a well-nourished, well-developed patient, in no apparent distress. SKIN: No rashes, ecchymoses or lesions. Warm and dry. HEAD: Atraumatic. Normocephalic. No temporal or scalp tenderness. EYES: Pupils equal round and reactive. No injection or drainage. ENT: Nose without bleeding, purulent drainage or septal hematoma. Airway patent. NECK: Trachea midline. No lymphadenopathy. Supple, nontender, no meningeal signs. CARDIOVASCULAR: Regular rate and rhythm without murmurs, gallops, or rubs. No JVD. RESPIRATORY: Clear to auscultation. Breath sounds equal bilaterally. No wheezes , rales, or rhonchi. GASTROINTESTINAL: Abdomen soft, non-tender, nondistended. No guarding. MUSCULOSKELETAL: Extremities without clubbing, cyanosis, or edema. NEUROLOGICAL: Awake and alert. Cranial nerves II through XII intact. No focal neurological deficits. Normal speech. At the time of this interview, he is lucid , alert, oriented x 3. Results - Labs CBC & Chem 7: 05/23/18 22:55 05/23/18 22:55 Labs: Laboratory Results - last 24 hr 05/23/18 05/23/18 05/23/18 22:55 22:55 22:55 WBC 8.8 RBC 4.37 L Hgb 13.4 Hct 39.6 MCV 90.5 MCH 30.6 MCHC 33.8 RDW 12.8 Plt Count 241 MPV 8.5 Neut % (Auto) 52.9 Lymph % (Auto) 32.8 [place] % (Auto) 8.2 H Eos % (Auto) 4.9 H Baso % (Auto) 1.2 Neut # (Auto) 4.6 Lymph # (Auto) 2.9 Slope # (Auto) 0.7 Eos # (Auto) 0.4 Baso # (Auto) 0.1 WBC Differential . Differential Comment Auto diff final PT 11.1 INR 1.1 APTT 33.1 H Sodium 141 Potassium 3.7 Chloride 106 Carbon Dioxide 29.2 Anion Gap 6 BUN 17 Creatinine 1.82 H Estimated GFR 36 L POC Glucose Random Glucose 147 H Calcium 8.9 Total Bilirubin 0.3 AST 9 L ALT 17 Alkaline Phosphatase 101 Ammonia Total Creatine Kinase 70 Troponin I Less than 0.02 L Total Protein 7.7 Albumin 3.6 Lipase 206 TSH 1.410 Urine Color Urine Clarity Urine pH Ur Specific [place] Urine Protein Urine Glucose (UA) Urine Ketones Urine Occult Blood Urine Nitrate Urine Bilirubin Urine Urobilinogen Ur Leukocyte Esterase Urine RBC Urine WBC Hyaline Casts Urine Mucus Micro UA Comment Urine Culture Comments Urine Opiates Screen Ur Barbiturates Screen Ur Amphetamines Screen U Benzodiazepines Scrn Urine Cocaine Screen U Cannabinoids Screen Serum Alcohol Less than 3 05/23/18 05/23/18 05/23/18 22:55 23:54 23:54 WBC RBC Hgb Hct MCV MCH MCHC RDW Plt Count MPV Neut % (Auto) Lymph % (Auto) Slope % (Auto) Eos % (Auto) Baso % (Auto) Neut # (Auto) Lymph # (Auto) Slope # (Auto) Eos # (Auto) Baso # (Auto) WBC Differential Differential Comment PT INR APTT Sodium Potassium Chloride Carbon Dioxide Anion Gap BUN Creatinine Estimated GFR POC Glucose Random Glucose Calcium Total Bilirubin AST ALT Alkaline Phosphatase Ammonia 18 Total Creatine Kinase Troponin I Total Protein Albumin Lipase TSH Urine Color Yellow Urine Clarity Clear Urine pH 5.0 Ur Specific [place] 1.012 Urine Protein Negative Urine Glucose (UA) Negative Urine Ketones Negative Urine Occult Blood Small H Urine Nitrate Negative Urine Bilirubin Negative Urine Urobilinogen Less than 2 Ur Leukocyte Esterase Negative Urine RBC 1 Urine WBC Less than 1 Hyaline Casts 36 Urine Mucus Few H Micro UA Comment Culture not ind Urine Culture Comments Culture not ind Urine Opiates Screen Neg Ur Barbiturates Screen Neg Ur Amphetamines Screen Neg U Benzodiazepines Scrn Pos H Urine Cocaine Screen Neg U Cannabinoids Screen Neg Serum Alcohol 05/24/18 12:18 WBC RBC Hgb Hct MCV MCH MCHC RDW Plt Count MPV Neut % (Auto) Lymph % (Auto) [place] % (Auto) Eos % (Auto) Baso % (Auto) Neut # (Auto) Lymph # (Auto) Slope # (Auto) Eos # (Auto) Baso # (Auto) WBC Differential Differential Comment PT INR APTT Sodium Potassium Chloride Carbon Dioxide Anion Gap BUN Creatinine Estimated GFR POC Glucose 98 Random Glucose Calcium Total Bilirubin AST ALT Alkaline Phosphatase Ammonia Total Creatine Kinase Troponin I Total Protein Albumin Lipase TSH Urine Color Urine Clarity Urine pH Ur Specific [place] Urine Protein Urine Glucose (UA) Urine Ketones Urine Occult Blood Urine Nitrate Urine Bilirubin Urine Urobilinogen Ur Leukocyte Esterase Urine RBC Urine WBC Hyaline Casts Urine Mucus Micro UA Comment Urine Culture Comments Urine Opiates Screen Ur Barbiturates Screen Ur Amphetamines Screen U Benzodiazepines Scrn Urine Cocaine Screen U Cannabinoids Screen Serum Alcohol - Imaging Impressions Cervical Spine CT 05/23/18 22:33 CONCLUSION: 1. No acute fracture. 2. Grade 1 anterior spondylolisthesis of C3 on C4. 3. Moderate degenerative disc change at the C4-5 and C5-6 levels. Chest X-Ray 05/23/18 22:33 CONCLUSION: No acute cardiopulmonary disease. Head CT 05/23/18 22:33 CONCLUSION: 1. No acute hemorrhage or mass effect. 2. Moderate atrophic changes again noted. 3. Interval placement of ventricular shunt catheter. . Caprini VTE Risk Assessment Caprini VTE Risk Assessment: Moderate/High Risk (score >= 2) Caprini Risk Assessment Model: Point Value = 1 Point Value = 2 Point Value = 3 Point Value = 5 Age 41-60 Minor surgery BMI > 25 kg/m2 Swollen legs Varicose veins or History of unexplained or recurrent spontaneous Oral contraceptives or hormone replacement Sepsis (< 1 month) Serious lung disease, including pneumonia (< 1 month) Abnormal pulmonary function Acute myocardial infarction Congestive heart failure (< 1 month) History of inflammatory bowel disease Medical patient at bed rest Age 61-74 Arthroscopic surgery Major open surgery (> 45 min) Laparoscopic surgery (> 45 min) Malignancy Confined to bed (> 72 hours) Immobilizing plaster cast Central venous access Age >= 75 History of VTE Family history of VTE Factor V Leiden Prothrombin [id number] Lupus anticoagulant Anticardiolipin antibodies Elevated serum homocysteine Heparin-induced thrombocytopenia Other congenital or acquired thrombophilia Stroke (< 1 month) Elective arthroplasty Hip, pelvis, or leg fracture Acute spinal cord injury (< 1 month) Prophylaxis Regimen: Total Risk Factor Score Risk Level Prophylaxis Regimen 0-1 Low Early ambulation 2 Moderate Order ONE of the following: *Sequential Compression Device (SCD) *Heparin 5000 units SQ BID 3-4 Higher Order ONE of the following medications: *Heparin 5000 units SQ TID *Enoxaparin/Lovenox 40 mg SQ daily (WT < 150 kg, CrCl > 30 mL/min) *Enoxaparin/Lovenox 30 mg SQ daily (WT < 150 kg, CrCl > 10-29 mL/min) *Enoxaparin/Lovenox 30 mg SQ BID (WT < 150 kg, CrCl > 30 mL/min) AND/OR *Sequential Compression Device (SCD) 5 or more Highest Order ONE of the following medications: *Heparin 5000 units SQ TID (Preferred with Epidurals) *Enoxaparin/Lovenox 40 mg SQ daily (WT < 150 kg, CrCl > 30 mL/min) *Enoxaparin/Lovenox 30 mg SQ daily (WT < 150 kg, CrCl > 10-29 mL/min) *Enoxaparin/Lovenox 30 mg SQ BID (WT < 150 kg, CrCl > 30 mL/min) AND *Sequential Compression Device (SCD) Assessment and Plan - Plan 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 CT head, CT neck, CXR are unremarkable for any acute findings. Acute decline of baseline dementia Hallucination - No clear etiology. Will ask Neurology for an evaluation. - Patient may benefit from MRI brain studies. - After initial MRI studies, he can likely continue outpatient work up. - Patient is on multiple psychotropic meds - we can hold these for now including Sertraline, Olanzapine, Mirtazapine as well as [place]. Hypertension Hyperlipidemia - Avoid Losartan for now due to creatinine 1.82 although this might be chronic. - Will start Amlodipine 5mg Qday. - Continue home med Lipitor 80mg QHS. Diabetes mellitus - Sliding scale insulin. Goal BG 140-180. If needed, consider low dose Levemir. CKD stage 3B Probable Mild Acute on chronic kidney disease. - Previously creatinine around 1.6. - Labs in the AM. Full code. SCDs. If prolonged hospitalization expected, consider heparin 5000 SQ BID.
--- NOTE | 2018-05-24 18:29 | ECG ---
Date Performed: 05/24/2018 Time Performed: 00:04:12 PTAGE: 77 years EKG: Sinus rhythm LEFT BUNDLE BRANCH BLOCK ABNORMAL ECG PREVIOUS TRACING :01/06/2018 @13.47 Compared to prior tracing, left bundle branch block is new. Clinical correlation is recommended DOCTOR: Hi Navarro Interpretating Date/Time 05/24/2018 18:27:48
[2018-05-24] MEDS ORDERED: Dextrose 50% in Water 50 ML Vial IV.PUSH PRN (21:15)
[2018-05-25] MEDS: Sod Chloride 0.9% Inj 1,000 ML IV.CONT SCH ×3 (02:42→19:35)
[2018-05-25] MEDS ORDERED: hydrALAZINE 25 MG Tablet PO ONE (04:47)
[2018-05-25] MEDS: Acetaminophen 325 MG Tablet PO PRN ×3 (09:05→22:32)
[2018-05-25] MEDS: amLODIPine 5 MG Tablet PO SCH (09:05)
[2018-05-25] MEDS: Insulin NovoLOG Aspart Correctional Sugar Inj SQ SCH ×4 (09:07→20:30)
[2018-05-25 09:45] LABS: Hematocrit 38.7 % (39.0-51.0); Hemoglobin 13.2 gm/dL (13.0-17.0); Mean Corpuscular HGB Conc 34.2 % (32.0-36.0); Mean Corpuscular Hemoglobin 30.8 pg (27.0-34.0); Mean Corpuscular Volume 89.9 fL (80.0-100.0); Mean Platelet Volume 8.6 fL (7.0-11.0); Platelet Count 217 th/mm3 (150-450); Red Cell Distribution Width 12.8 % (11.6-17.2); White Blood Count 7.3 th/mm3 (4.0-11.0)
[2018-05-25 10:03] LABS: Albumin 3.1 g/dL (3.4-5.0); Anion Gap 7 meq/L (5-15); Aspartate Aminotransferase 17 U/L (15-37); Blood Urea Nitrogen 13 mg/dL (7-18); Calcium 8.5 mg/dL (8.5-10.1); Carbon Dioxide 24.9 meq/L (21.0-32.0); Chloride 110 meq/L (98-107); Glomerular Filtration Rate 53 mL/min (>89); Glucose,Random 92 mg/dL (74-106); Potassium 3.8 meq/L (3.5-5.1); Sodium 142 meq/L (136-145)
[2018-05-25 10:04] LABS: Alanine Aminotransferase 15 U/L (12-78)
[2018-05-25 10:06] LABS: Alkaline Phosphatase 95 U/L (45-117); Total Protein 6.9 g/dL (6.4-8.2)
[2018-05-25 10:45] LABS: Eosinophils 2 % (0-4); Lymphocytes 40 % (9-44); Monocytes 9 % (0-8)
[2018-05-25 10:46] LABS: Platelet Estimate Normal (Normal); Platelet Morphology Normal (Normal)
--- NOTE | 2018-05-25 10:49 | P.CONNEU ---
History of Present Illness Service: Neurology Consult date: 05/25/18 Reason for Consult: Dementia Primary Care Provider: [facility] Family Provider: [facility] Chief Complaint: Confusion, hallucinations, History of Present Illness: 77 y/o male with hx of dementia, presented to ER with increased confusion and hallucinations in the last few weeks. He reports he has had hallucinations and worsening memory over the last year. He has hx of NPH [facility] He is unsure what medication he takes for his memory and how long he has been taking it, though Galantamine is listed in the chart. [facility] also [facility] his [facility]. 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 He denies hx of exposure to agent orange. He notes tremor, mostly with action that he finds bothersome. He has had multiple falls, typically falling forward. He is unsure if his shunt has been adjusted recently. He reports seeing friends that have . He also notes that he acts out dreams overnight and this has been ongoing for years. No family hx of PD or AD. No hx of seizure or stroke. Review of Systems All other systems reviewed negative except as stated in HPI PMFSH - History History Provided By: Patient, Family Member - Medical History Medical History: Medical History (Last Reviewed 05/23/18 @ 22:47 by Rosario Simons MD) Cholecystectomy planned Dementia HTN (hypertension) High cholesterol Prostate disorder TBI (traumatic brain injury) - Surgical History Surgical History: Surgical History (Last Reviewed 05/23/18 @ 22:47 by Rosario Simons MD) History of appendectomy History of tonsillectomy History of total right knee replacement History of ventriculoperitoneal shunting - Tobacco History Second Hand Smoke Exposure: No Tobacco Use In Past 30 Days: No Smoking Status: Never smoker - Alcohol History How Often Do You Have a Drink Containing Alcohol: Never - Substance Use History Substance History: No History of Abuse - Travel History Recent Travel in the [place] Within the Last 8 Weeks: No Recent Travel Out of the Country Within the Last 8 Weeks: No - Immunization History Tetanus Immunization: <5 Years Hx Influenza Vaccine This Season: Yes Medications and Allergies Allergies Allergy/AdvReac Type Severity Reaction Status Date / Time lisinopril Allergy Intermediate COUGH Verified 05/17/18 13:13 Home Medications Medication Instructions Recorded Confirmed Type alfuzosin 10 mg PO DAILY 05/13/18 05/24/18 History aspirin 81 mg PO DAILY 05/13/18 05/24/18 History atorvastatin 80 mg PO DAILY 05/13/18 05/24/18 History divalproex 1,000 mg PO DAILY 05/13/18 05/24/18 History docusate sodium 100 mg PO DAILY 05/13/18 05/24/18 History folic acid 1 mg PO DAILY 05/13/18 05/24/18 History furosemide 20 mg PO DIRECTED 05/13/18 05/24/18 History galantamine 16 mg PO QAM 05/13/18 05/24/18 History losartan 50 mg PO DAILY 05/13/18 05/24/18 History metoprolol tartrate 12.5 mg PO BID 05/13/18 05/24/18 History mirtazapine 15 mg PO DAILY 05/13/18 05/24/18 History olanzapine 5 mg PO DAILY 05/13/18 05/24/18 History omeprazole 20 mg PO DAILY 05/13/18 05/24/18 History sertraline 100 mg PO BID 05/13/18 05/24/18 History tramadol 50 mg PO QID 05/13/18 05/24/18 History ursodiol 250 mg PO BID 05/13/18 05/24/18 History insulin aspart U-100 28 unit SUB-Q DAILY 05/17/18 05/24/18 History Active Medications: Active Medications Acetaminophen (Tylenol) 650 mg PO Q4H PRN PRN Reason: Fever, headache, pain 3-10 Last Admin: 05/25/18 09:05 Dose: 650 mg Al Hydroxide/Mg Hydroxide (Milk Of Magnhector Liq) 30 ml PO Q12H PRN PRN Reason: Mild Constipation Amlodipine Besylate (Norvasc) 5 mg PO DAILY [facility] Last Admin: 05/25/18 09:05 Dose: 5 mg Atorvastatin Calcium (Lipitor) 80 mg PO DAILY [facility] Last Admin: 05/25/18 09:05 Dose: 80 mg Bisacodyl (Dulcolax Supp) 10 mg RECTAL DAILY PRN PRN Reason: SEVERE CONSITIPATION Dextrose (D50w Vial) 50 ml IV.PUSH UNSCH PRN PRN Reason: PER HYPOGLYCEMIA PROTOCOL Glucagon (Glucagon Inj) 1 mg OTHER PRN PRN PRN Reason: for Hypoglycemia Protocol Sodium Chloride (Ns Inj) 1,000 mls @ 125 mls/hr IV.CONT .Q8H [facility] Last Admin: 05/25/18 02:42 Dose: 125 mls/hr Insulin Aspart (Novolog Insulin Correctional Sugar Inj) 0 unit SQ [facility]; Protocol Last Admin: 05/25/18 09:07 Dose: Not Given Lactulose (Lactulose Liq) 30 ml PO DAILY PRN PRN Reason: SEVERE CONSITIPATION Sennosides (Senokot) 17.2 mg PO Q12H PRN PRN Reason: Moderate Constipation Sodium Chloride (Ns Flush) 2 ml IV.FLUSH PRN PRN PRN Reason: FLUSH AFTER USING IV ACCESS Temazepam (Restoril) 15 mg PO HS PRN PRN Reason: INSOMNIA Last Admin: 05/24/18 05:54 Dose: 15 mg Exam Vital signs: Vital Signs 05/24/18 11:00 05/24/18 15:00 05/24/18 15:23 Temperature 97.9 F 97.8 F Pulse Rate 65 57 L Respiratory Rate 18 18 Blood Pressure 169/83 H 151/83 H Pulse Oximetry 97 96 97 05/24/18 20:00 05/24/18 21:00 05/25/18 00:00 Temperature 97.2 F L 97.4 F L Pulse Rate 56 L 62 66 Respiratory Rate 18 18 Blood Pressure 168/90 H 194/93 H Pulse Oximetry 96 99 05/25/18 04:00 05/25/18 08:00 Temperature 97.3 F L 96.8 F L Pulse Rate 75 65 Respiratory Rate 18 18 Blood Pressure 184/86 H 189/93 H Pulse Oximetry 98 97 Intake & Output 05/24/18 05/25/18 05/25/18 18:59 06:59 18:59 Intake Total 2200 / 2200 1120 / 1120 Output Total 1300 / 1300 575 / 575 Balance 900 / 900 545 / 545 Weight 98.3 kg Intake: IV 1000 / 1000 1000 / 1000 NS Inj 1,000 ML @ 125 mls/hr IV 1000 / 1000 1000 / 1000 .CONT .Q8H [facility] Rx#:[id number] Oral 1200 / 1200 120 / 120 Output: Urine 1300 / 1300 575 / 575 Other: # Bowel Movements 0 0 Weight On Admission 102.058 kg - Constitutional no acute distress - Routine HEENT Exam Head: Present: normocephalic, atraumatic Eye: Present: EOMI, PERRL - Routine Neck Exam Absent: carotid bruit - Routine Cardiovascular Exam Present: RRR - Routine Neurological Exam alert to self, date: Nov 2077, current president: Paulina, mild facial masking, otherwise CN II-XII intact, mild RUE rigidity, trace tremor with outstretched arms R>L, no rest tremor noted, no cogwheeling on the left, mild slowing with finger taps on the right, difficulty with f-n-f, no drift, no focal deficit, moves bilateral extremities against gravity though unable to dorsiflex left ankle, toes downgoing, decreased to temp and light touch eric LE, gait withheld, speech normal, no dysarthria noted Results - Labs CBC & Chem 7: 05/25/18 08:50 05/25/18 08:50 Labs: Laboratory Results - last 24 hr 05/24/18 05/24/18 05/25/18 12:18 23:44 08:16 WBC RBC Hgb Hct MCV MCH MCHC RDW Plt Count MPV Prelim Diff (Auto) Differential Comment Sodium Potassium Chloride Carbon Dioxide Anion Gap BUN Creatinine Estimated GFR POC Glucose 98 97 98 Random Glucose Calcium Total Bilirubin AST ALT Alkaline Phosphatase Total Protein Albumin 05/25/18 05/25/18 08:50 08:50 WBC 7.3 RBC 4.30 L Hgb 13.2 Hct 38.7 L MCV 89.9 MCH 30.8 MCHC 34.2 RDW 12.8 Plt Count 217 MPV 8.6 Prelim Diff (Auto) Manual diff required Differential Comment . Sodium 142 Potassium 3.8 Chloride 110 H Carbon Dioxide 24.9 Anion Gap 7 BUN 13 Creatinine 1.30 Estimated GFR 53 L POC Glucose Random Glucose 92 Calcium 8.5 Total Bilirubin 0.5 AST 17 ALT 15 Alkaline Phosphatase 95 Total Protein 6.9 D Albumin 3.1 L Review/Management - Review/Management Plan: Pt has had hallucinations for over 1 yr with hx of RBD this raises the suspicion of Dementia of Lewy Body may also be related to multiple head injuries would continue Galantamine trial of Namenda for hallucinations would avoid Olanzapine and consider Seroquel instead Also hx of NPH MRI is pending Ammonia TSH normal will check B12 and B1 Addendum MD note pt seen examined d/w BRANDON Mustafa added to galantamine. mri brain,vit levels.
--- NOTE | 2018-05-25 16:22 | P.PN ---
Subjective Interval history: Patient is pleasant, seems to be oriented but cannot recall why he takes multiple antipsychotic meds. He does admit to hallucinations where he sees to childhood friends in his room who are already . His main complaint is neck pain. He states that his neck pain has been keeping him up for the last few nights. Physical Exam Vital signs: Vital Signs 05/24/18 20:00 05/24/18 21:00 05/25/18 00:00 Temperature 97.2 F L 97.4 F L Pulse Rate 56 L 62 66 Respiratory Rate 18 18 Blood Pressure 168/90 H 194/93 H Pulse Oximetry 96 99 05/25/18 04:00 05/25/18 08:00 05/25/18 09:00 Temperature 97.3 F L 96.8 F L Pulse Rate 75 65 75 Respiratory Rate 18 18 Blood Pressure 184/86 H 189/93 H Pulse Oximetry 98 97 05/25/18 12:00 05/25/18 12:13 05/25/18 16:00 Temperature 97.8 F 98.1 F Pulse Rate 75 75 Respiratory Rate 18 20 17 Blood Pressure 153/71 H 168/85 H Pulse Oximetry 98 99 Intake & Output 05/24/18 05/25/18 05/25/18 18:59 06:59 18:59 Intake Total 2200 / 2200 1120 / 1120 1000 / 1000 Output Total 1300 / 1300 575 / 575 Balance 900 / 900 545 / 545 1000 / 1000 Weight 98.3 kg Intake: IV 1000 / 1000 1000 / 1000 1000 / 1000 NS Inj 1,000 ML @ 125 mls/hr IV 1000 / 1000 1000 / 1000 1000 / 1000 .CONT .Q8H [facility] Rx#:[id number] Oral 1200 / 1200 120 / 120 Output: Urine 1300 / 1300 575 / 575 Other: # Bowel Movements 0 0 Weight On Admission 102.058 kg Narrative: GENERAL: AAOx3, no acute distress SKIN: Warm and dry. No rashes 2 x 2 centimeter lesion on right upper scalp, scabbed, no cellulitis HEAD: Atruamtic, normocephalic. EYES: No scleral icterus. No injection or drainage. ENT: Moist mucous membranes, patent nares, no erythema of oropharynx. NECK: Supple, trachea midline. No JVD or lymphadenopathy. Normal thyroid. CARDIOVASCULAR: Regular rate and rhythm. No murmurs, gallops, or rubs. RESPIRATORY: Breath sounds clear equal bilaterally. No crackles or wheezes. No accessory muscle use. GASTROINTESTINAL: Abdomen soft, non-tender, nondistended, normal active bowel sounds MUSCULOSKELETAL: No cyanosis, or edema. NEURO: CN II-XII grossly intact, no focal deficits, no slurring of speech. Memory deficits. Results - Labs CBC & Chem 7: 05/25/18 08:50 05/25/18 08:50 Laboratory Results - last 24 hr 05/24/18 05/25/18 05/25/18 23:44 08:16 08:50 WBC 7.3 RBC 4.30 L Hgb 13.2 Hct 38.7 L MCV 89.9 MCH 30.8 MCHC 34.2 RDW 12.8 Plt Count 217 MPV 8.6 Prelim Diff (Auto) Manual diff required WBC Differential Manual diff final Seg Neuts % (Manual) 48 Lymphocytes % (Manual) 40 Monocytes % (Manual) 9 H Eosinophils % (Manual) 2 Basophils % (Manual) 1 Abs Neuts (Manual) 3.5 Differential Comment . Platelet Estimate Normal Platelet Morphology Normal Sodium Potassium Chloride Carbon Dioxide Anion Gap BUN Creatinine Estimated GFR POC Glucose 97 98 Random Glucose Calcium Total Bilirubin AST ALT Alkaline Phosphatase Total Protein Albumin Vitamin B12 05/25/18 05/25/18 05/25/18 08:50 12:09 13:27 WBC RBC Hgb Hct MCV MCH MCHC RDW Plt Count MPV Prelim Diff (Auto) WBC Differential Seg Neuts % (Manual) Lymphocytes % (Manual) Monocytes % (Manual) Eosinophils % (Manual) Basophils % (Manual) Abs Neuts (Manual) Differential Comment Platelet Estimate Platelet Morphology Sodium 142 Potassium 3.8 Chloride 110 H Carbon Dioxide 24.9 Anion Gap 7 BUN 13 Creatinine 1.30 Estimated GFR 53 L POC Glucose 143 H Random Glucose 92 Calcium 8.5 Total Bilirubin 0.5 AST 17 ALT 15 Alkaline Phosphatase 95 Total Protein 6.9 D Albumin 3.1 L Vitamin B12 661 Assessment and Plan - Plan 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 CT head, CT neck, CXR are unremarkable for any acute findings. Dementia and hallucinations His reports an acute decline in his dementia and worsening of his hallucinations MRI of brain is pending, EEG done today Neurology ruling out Lewy body dementia Psychotropic meds held by neurology Appreciate neurology consult Hypertension, CKD Losartan held, amlodipine started due to creatinine of 1.82 Continue Lipitor home dose Type 2 diabetes Accu-Cheks with sliding scale insulin coverage Diabetic diet DVT prophylaxis SCDs, will start heparin if hospitalized beyond tomorrow
[2018-05-25] MEDS: Ketorolac Inj 30 MG/ML (IVP) Vial IV.PUSH PRN (17:56)
--- NOTE | 2018-05-25 19:03 | MG ---
cc: Radha Segura MD, Dalia MD EEG NUMBER [id number] A 77 year-old. With photic stimulation. Awake, drowsy asleep study. CT shows atrophy. 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 No acute findings. Admitted for increased confusion, hallucinations, history of memory problems. MEDICINES: Norvasc. Lipitor Galantamine DESCRIPTION OF RECORD: The patient has a background rhythm of 8-9 Hz, 20-40 microvolts. A lot of myogenic movement artifact noted. The patient tends to fall asleep. There is some attenuation of the background, starts snoring. More muscle artifact. EKG looks sinus. Photic stimulation does elicit a mild driving response. IMPRESSION: Overall, normal appearing electroencephalogram without any epileptiform features in the recording. Clinical correlation. MD NACHO Adames/ , 06:44 PM , 06:49 PM
[2018-05-26] MEDS: Ketorolac Inj 30 MG/ML (IVP) Vial IV.PUSH PRN ×3 (05:16→17:59)
[2018-05-26] MEDS: Sod Chloride 0.9% Inj 1,000 ML IV.CONT SCH (05:18)
[2018-05-26] MEDS: Insulin NovoLOG Aspart Correctional Sugar Inj SQ SCH ×4 (07:32→21:17)
[2018-05-26] MEDS: amLODIPine 5 MG Tablet PO SCH (08:11)
--- NOTE | 2018-05-26 17:54 | P.PN ---
Subjective Interval history: Patient is pleasant today, no change in his affect. His insight into yesterday' s visit is not great, this is evidence of his dementia. Physical Exam Vital signs: Vital Signs 05/25/18 18:30 05/25/18 20:00 05/26/18 00:00 Temperature 97.8 F Pulse Rate 67 59 L Respiratory Rate 16 Blood Pressure 160/62 H 178/75 H Pulse Oximetry 96 05/26/18 04:00 05/26/18 08:00 05/26/18 09:00 Temperature 98.1 F 97.4 F L Pulse Rate 89 62 65 Respiratory Rate 18 18 Blood Pressure 149/74 H 193/103 H Pulse Oximetry 96 92 L 05/26/18 12:00 05/26/18 12:42 05/26/18 14:24 Temperature 97.8 F Pulse Rate 93 H 81 Respiratory Rate 18 Blood Pressure 158/72 H Pulse Oximetry 98 95 05/26/18 16:00 05/26/18 16:43 Temperature 97.7 F Pulse Rate 67 74 Respiratory Rate 18 Blood Pressure 157/97 H Pulse Oximetry 97 Intake & Output 05/25/18 05/26/18 05/26/18 18:59 06:59 18:59 Intake Total 3940 / 3940 1999 Output Total 1200 / 1200 Balance 2740 / 2740 1999 Intake: IV 1000 / 1000 1999 NS Inj 1,000 ML @ 125 mls/hr IV 1000 / 1000 1999 .CONT .Q8H [facility] Rx#:[id number] Oral 1440 / 1440 Other 1500 / 1500 Output: Urine 1200 / 1200 Other: Other Intake Source Saline Solution Saline Solution # Voids 3 # Bowel Movements 0 Narrative: GENERAL: AAOx3, no acute distress SKIN: Warm and dry. No rashes 2 x 2 centimeter lesion on right upper scalp, scabbed, no cellulitis HEAD: Atruamtic, normocephalic. EYES: No scleral icterus. No injection or drainage. ENT: Moist mucous membranes, patent nares, no erythema of oropharynx. NECK: Supple, trachea midline. No JVD or lymphadenopathy. Normal thyroid. CARDIOVASCULAR: Regular rate and rhythm. No murmurs, gallops, or rubs. RESPIRATORY: Breath sounds clear equal bilaterally. No crackles or wheezes. No accessory muscle use. GASTROINTESTINAL: Abdomen soft, non-tender, nondistended, normal active bowel sounds MUSCULOSKELETAL: No cyanosis, or edema. NEURO: CN II-XII grossly intact, no focal deficits, no slurring of speech. Memory deficits. 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 CT head, CT neck, CXR are unremarkable for any acute findings. Dementia and hallucinations His reports an acute decline in his dementia and worsening of his hallucinations EEG was within normal limits Neurology ruling out Lewy body dementia, MRI pending Psychotropic meds held by neurology Patient's affect and memory remain the same Appreciate neurology consult Hypertension, CKD Losartan held, amlodipine started due to creatinine of 1.82 Continue Lipitor home dose Follow with a.m. BMP Type 2 diabetes Accu-Cheks with sliding scale insulin coverage Diabetic diet DVT prophylaxis Heparin
[2018-05-26] MEDS: Heparin - SQ 10,000 UNITS/ML Vial SQ SCH (21:19)
[2018-05-27] MEDS: Ketorolac Inj 30 MG/ML (IVP) Vial IV.PUSH PRN ×4 (00:30→23:05)
[2018-05-27] MEDS: Temazepam 15 MG Capsule PO PRN (00:38)
[2018-05-27] MEDS: Acetaminophen 325 MG Tablet PO PRN ×3 (00:40→15:48)
[2018-05-27] MEDS: Heparin - SQ 10,000 UNITS/ML Vial SQ SCH ×2 (08:09→20:27)
[2018-05-27] MEDS: amLODIPine 5 MG Tablet PO SCH (08:09)
[2018-05-27] MEDS: Insulin NovoLOG Aspart Correctional Sugar Inj SQ SCH ×4 (08:09→20:28)
[2018-05-27] MEDS: Sod Chloride 0.9% Inj 1,000 ML IV.CONT SCH ×5 (08:10→23:05)
[2018-05-27 08:44] LABS: Hemoglobin 12.5 gm/dL (13.0-17.0); Mean Corpuscular HGB Conc 34.6 % (32.0-36.0); Mean Corpuscular Hemoglobin 30.9 pg (27.0-34.0); Mean Corpuscular Volume 89.1 fL (80.0-100.0); Mean Platelet Volume 8.5 fL (7.0-11.0); Platelet Count 198 th/mm3 (150-450); Red Blood Count 4.04 mil/mm3 (4.50-5.90); Red Cell Distribution Width 12.7 % (11.6-17.2); White Blood Count 6.6 th/mm3 (4.0-11.0)
[2018-05-27 09:18] LABS: Calcium 8.6 mg/dL (8.5-10.1); Carbon Dioxide 24.1 meq/L (21.0-32.0); Potassium 3.1 meq/L (3.5-5.1)
--- NOTE | 2018-05-27 15:38 | P.PN ---
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 Patient has no new complaints today. Physical Exam Vital signs: Vital Signs 05/26/18 16:00 05/26/18 16:43 05/26/18 20:00 Temperature 97.7 F 98.0 F Pulse Rate 67 74 78 Respiratory Rate 18 18 Blood Pressure 157/97 H 187/85 H Pulse Oximetry 97 97 05/27/18 00:00 05/27/18 05:43 05/27/18 08:00 Temperature 97.7 F 97.8 F 97.2 F L Pulse Rate 78 70 56 L Respiratory Rate 20 20 20 Blood Pressure 160/82 H 157/84 H 165/92 H Pulse Oximetry 96 96 96 05/27/18 10:59 05/27/18 12:00 Temperature 97.5 F L Pulse Rate 73 Respiratory Rate 19 Blood Pressure 160/80 H Pulse Oximetry 96 97 Intake & Output 05/26/18 05/27/18 05/27/18 18:59 06:59 18:59 Intake Total 1979 / 1979 1240 / 1240 Output Total 1650 / 1650 800 / 800 Balance 330 / 330 440 / 440 Intake: IV 1000 / 1000 NS Inj 1,000 ML @ 125 mls/hr IV 1000 / 1000 .CONT .Q8H [facility] Rx#:[id number] Oral 480 / 480 240 / 240 Other 1500 / 1500 Output: Urine 1650 / 1650 800 / 800 Other: Other Intake Source Saline Solution # Voids 3 # Bowel Movements 0 Narrative: GENERAL: AAOx3, no acute distress SKIN: Warm and dry. No rashes 2 x 2 centimeter lesion on right upper scalp, scabbed, no cellulitis HEAD: Atruamtic, normocephalic. EYES: No scleral icterus. No injection or drainage. ENT: Moist mucous membranes, patent nares, no erythema of oropharynx. NECK: Supple, trachea midline. No JVD or lymphadenopathy. Normal thyroid. CARDIOVASCULAR: Regular rate and rhythm. No murmurs, gallops, or rubs. RESPIRATORY: Breath sounds clear equal bilaterally. No crackles or wheezes. No accessory muscle use. GASTROINTESTINAL: Abdomen soft, non-tender, nondistended, normal active bowel sounds MUSCULOSKELETAL: No cyanosis, or edema. NEURO: CN II-XII grossly intact, no focal deficits, no slurring of speech. Memory deficits. Results - Labs CBC & Chem 7: 05/27/18 08:19 05/27/18 08:19 Laboratory Results - last 24 hr 05/26/18 05/26/18 05/27/18 17:36 20:22 08:06 WBC RBC Hgb Hct MCV MCH MCHC RDW Plt Count MPV Sodium Potassium Chloride Carbon Dioxide Anion Gap BUN Creatinine Estimated GFR POC Glucose 147 H 167 H 118 H Random Glucose Calcium 05/27/18 05/27/18 05/27/18 08:19 08:19 11:47 WBC 6.6 RBC 4.04 L Hgb 12.5 L Hct 36.0 L MCV 89.1 MCH 30.9 MCHC 34.6 RDW 12.7 Plt Count 198 MPV 8.5 Sodium 144 Potassium 3.1 L Chloride 111 H Carbon Dioxide 24.1 Anion Gap 9 BUN 13 Creatinine 1.38 H Estimated GFR 50 L POC Glucose 111 H Random Glucose 111 H Calcium 8.6 Assessment and Plan - Plan 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 CT head, CT neck, CXR are unremarkable for any acute findings. 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 No change to current plan Dementia and hallucinations His reports an acute decline in his dementia and worsening of his hallucinations EEG was within normal limits Neurology ruling out Lewy body dementia, MRI pending Psychotropic meds held by neurology Patient's affect and memory remain the same Appreciate neurology consult Hypertension, CKD Losartan held, amlodipine started due to creatinine of 1.82 Continue Lipitor home dose Follow with a.m. BMP Type 2 diabetes Accu-Cheks with sliding scale insulin coverage Diabetic diet DVT prophylaxis Heparin
[2018-05-28] MEDS: Acetaminophen 325 MG Tablet PO PRN ×3 (02:23→17:42)
[2018-05-28] MEDS: Ketorolac Inj 30 MG/ML (IVP) Vial IV.PUSH PRN ×2 (06:17→14:46)
[2018-05-28] MEDS: Sod Chloride 0.9% Inj 1,000 ML IV.CONT SCH ×3 (06:17→22:47)
[2018-05-28] MEDS: Heparin - SQ 10,000 UNITS/ML Vial SQ SCH ×2 (08:50→21:31)
[2018-05-28] MEDS: amLODIPine 5 MG Tablet PO SCH (08:51)
[2018-05-28] MEDS: Insulin NovoLOG Aspart Correctional Sugar Inj SQ SCH ×4 (09:05→21:31)
--- NOTE | 2018-05-28 11:11 | P.PNIM ---
Subjective Interval history: Patient remains confused today. MRI pending. No complaints. Physical Exam Vital signs: Vital Signs 05/27/18 12:00 05/27/18 16:00 05/27/18 17:15 Temperature 97.5 F L 97.8 F Pulse Rate 73 76 78 Respiratory Rate 19 18 Blood Pressure 160/80 H 162/80 H Pulse Oximetry 97 98 05/27/18 20:00 05/28/18 00:00 05/28/18 04:00 Temperature 97.9 F 97.7 F 97.7 F Pulse Rate 81 85 83 Respiratory Rate 20 18 20 Blood Pressure 168/98 H 170/94 H 162/96 H Pulse Oximetry 97 97 97 05/28/18 08:00 05/28/18 09:00 Temperature 97.5 F L Pulse Rate 80 79 Respiratory Rate 19 Blood Pressure 189/92 H Pulse Oximetry 97 Intake & Output 05/27/18 05/28/18 05/28/18 18:59 06:59 18:59 Intake Total 1480 / 1480 2360 / 2360 Output Total 1000 / 1000 700 / 700 Balance 480 / 480 1660 / 1660 Weight 100.7 kg Intake: IV 1000 / 1000 1999 NS Inj 1,000 ML @ 125 mls/hr IV 1000 / 1000 1999 .CONT .Q8H [facility] Rx#:[id number] Oral 480 / 480 360 / 360 Output: Urine 1000 / 1000 700 / 700 Other: # Bowel Movements 0 Narrative: GENERAL: NAD, A&Ox1 HEAD: Normocephalic. NECK: Supple, trachea midline. No lymphadenopathy. EYES: No scleral icterus. No injection or drainage. CARDIOVASCULAR: Regular rate and rhythm without murmurs, gallops, or rubs. RESPIRATORY: Breath sounds equal bilaterally. No accessory muscle use. GASTROINTESTINAL: Abdomen soft, non-tender, nondistended. MUSCULOSKELETAL: No cyanosis, or edema. SKIN: Warm and dry. NEURO: No focal neurological deficits. 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 CT head, CT neck, CXR are unremarkable for any acute findings. Awaiting medical records to determine PROPERTY SPECIALIST shunt status. Acute delirium dementia hallucinations No significant change Neurology ruling out Lewy body dementia, MRI pending Psychotropic meds held by neurology Patient's affect and memory remain the same Neurology following Hypertension, CKD Continue amlodipine Continue Lipitor home dose Diabetes mellitus type 2 Follow blood sugars Insulin sliding scale Diabetic diet DVT prophylaxis Heparin
[2018-05-28] MEDS ORDERED: amLODIPine 5 MG Tablet PO ONE (13:52)
[2018-05-29] MEDS: Sod Chloride 0.9% Inj 1,000 ML IV.CONT SCH ×3 (06:46→23:27)
[2018-05-29] MEDS: Insulin NovoLOG Aspart Correctional Sugar Inj SQ SCH ×4 (07:02→20:52)
[2018-05-29 09:39] LABS: Baso # (Auto) 0.1 th/mm3 (0.0-0.2); Baso % (Auto) 0.7 % (0.0-2.0); Eos # (Auto) 0.2 th/mm3 (0.0-0.4); Eos % (Auto) 2.3 % (0.0-4.0); Hematocrit 38.6 % (39.0-51.0); Hemoglobin 13.5 gm/dL (13.0-17.0); Lymph # (Auto) 2.2 th/mm3 (1.0-4.8); Lymph % (Auto) 24.9 % (9.0-44.0); Mean Corpuscular HGB Conc 35.1 % (32.0-36.0); Mean Corpuscular Hemoglobin 31.1 pg (27.0-34.0); Mean Corpuscular Volume 88.6 fL (80.0-100.0); Mean Platelet Volume 8.4 fL (7.0-11.0); Mono # (Auto) 0.8 th/mm3 (0.0-0.9); Mono % (Auto) 8.8 % (0.0-8.0); Neut # (Auto) 5.5 th/mm3 (1.8-7.7); Neut % (Auto) 63.3 % (16.0-70.0); Platelet Count 216 th/mm3 (150-450); Red Blood Count 4.35 mil/mm3 (4.50-5.90); Red Cell Distribution Width 12.6 % (11.6-17.2); White Blood Count 8.6 th/mm3 (4.0-11.0)
[2018-05-29] MEDS: amLODIPine 10 MG Tablet PO SCH (09:51)
[2018-05-29] MEDS: Heparin - SQ 10,000 UNITS/ML Vial SQ SCH ×2 (09:51→20:46)
[2018-05-29 10:08] LABS: Alanine Aminotransferase 18 U/L (12-78); Albumin 3.5 g/dL (3.4-5.0); Alkaline Phosphatase 96 U/L (45-117); Anion Gap 14 meq/L (5-15); Aspartate Aminotransferase 27 U/L (15-37); Blood Urea Nitrogen 11 mg/dL (7-18); Calcium 8.8 mg/dL (8.5-10.1); Carbon Dioxide 19.2 meq/L (21.0-32.0); Chloride 108 meq/L (98-107); Glomerular Filtration Rate 52 mL/min (>89); Glucose,Random 94 mg/dL (74-106); Magnesium 1.5 mg/dL (1.5-2.5); Phosphorus 2.8 mg/dL (2.5-4.9); Sodium 141 meq/L (136-145); Total Protein 7.3 g/dL (6.4-8.2)
[2018-05-29 10:14] LABS: Potassium 2.9 meq/L (3.5-5.1)
[2018-05-29] MEDS ORDERED: hydroCHLOROthiazide 25 MG Tablet PO ONE (11:05)
--- NOTE | 2018-05-29 11:07 | P.PNIM ---
Subjective Interval history: Critical potassium level this morning. Patient is not improved in regards orientation but he has improvement in his alertness. Blood pressures not yet controlled. Physical Exam Vital signs: Vital Signs 05/28/18 12:00 05/28/18 16:00 05/28/18 19:39 Temperature 97.9 F 97.8 F Pulse Rate 80 80 80 Respiratory Rate 19 18 Blood Pressure 183/82 H 199/83 H Pulse Oximetry 98 98 05/28/18 20:00 05/29/18 00:00 05/29/18 00:04 Temperature 97.7 F 97.7 F Pulse Rate 81 80 69 Respiratory Rate 20 18 Blood Pressure 148/76 H 150/88 H Pulse Oximetry 95 98 05/29/18 03:57 05/29/18 04:00 05/29/18 08:00 Temperature 97.8 F 97.6 F Pulse Rate 88 92 H 86 Respiratory Rate 17 18 Blood Pressure 142/80 H 196/98 H Pulse Oximetry 94 L 97 Intake & Output 05/28/18 05/29/18 05/29/18 18:59 06:59 18:59 Intake Total 1560 / 1560 1950 / 1950 Output Total 950 / 950 Balance 1560 / 1560 1000 / 1000 Weight 99.8 kg Intake: IV 1000 / 1000 1949 / 1950 NS Inj 1,000 ML @ 125 mls/hr IV 1000 / 1000 1950 / 1950 .CONT .Q8H [facility] Rx#:[id number] Oral 560 / 560 Output: Urine 950 / 950 Other: # Voids 1,300 # Incontinent Voids 1 # Bowel Movements 1 1 Narrative: GENERAL: NAD, A&Ox1 HEAD: Normocephalic. NECK: Supple, trachea midline. No lymphadenopathy. EYES: No scleral icterus. No injection or drainage. CARDIOVASCULAR: Regular rate and rhythm without murmurs, gallops, or rubs. RESPIRATORY: Breath sounds equal bilaterally. No accessory muscle use. GASTROINTESTINAL: Abdomen soft, non-tender, nondistended. MUSCULOSKELETAL: No cyanosis, or edema. SKIN: Warm and dry. NEURO: No focal neurological deficits. Results - Labs CBC & Chem 7: 05/29/18 09:25 05/29/18 09:25 Laboratory Results - last 24 hr 05/28/18 05/28/18 05/28/18 11:50 17:26 21:28 WBC RBC Hgb Hct MCV MCH MCHC RDW Plt Count MPV Neut % (Auto) Lymph % (Auto) Morrison % (Auto) Eos % (Auto) Baso % (Auto) Neut # (Auto) Lymph # (Auto) Morrison # (Auto) Eos # (Auto) Baso # (Auto) WBC Differential Differential Comment Sodium Potassium Chloride Carbon Dioxide Anion Gap BUN Creatinine Estimated GFR POC Glucose 109 111 H 110 Random Glucose Calcium Phosphorus Magnesium Total Bilirubin AST ALT Alkaline Phosphatase Ammonia Total Protein Albumin 05/29/18 05/29/18 05/29/18 06:54 09:25 09:25 WBC 8.6 RBC 4.35 L Hgb 13.5 Hct 38.6 L MCV 88.6 MCH 31.1 MCHC 35.1 RDW 12.6 Plt Count 216 MPV 8.4 Neut % (Auto) 63.3 Lymph % (Auto) 24.9 Morrison % (Auto) 8.8 H Eos % (Auto) 2.3 Baso % (Auto) 0.7 Neut # (Auto) 5.5 Lymph # (Auto) 2.2 Morrison # (Auto) 0.8 Eos # (Auto) 0.2 Baso # (Auto) 0.1 WBC Differential . Differential Comment Auto diff final Sodium 141 Potassium 2.9 L* Chloride 108 H Carbon Dioxide 19.2 L Anion Gap 14 BUN 11 Creatinine 1.32 H Estimated GFR 52 L POC Glucose 102 Random Glucose 94 Calcium 8.8 Phosphorus 2.8 Magnesium 1.5 Total Bilirubin 0.6 AST 27 ALT 18 Alkaline Phosphatase 96 Ammonia Total Protein 7.3 Albumin 3.5 05/29/18 09:25 WBC RBC Hgb Hct MCV MCH MCHC RDW Plt Count MPV Neut % (Auto) Lymph % (Auto) Morrison % (Auto) Eos % (Auto) Baso % (Auto) Neut # (Auto) Lymph # (Auto) Morrison # (Auto) Eos # (Auto) Baso # (Auto) WBC Differential Differential Comment Sodium Potassium Chloride Carbon Dioxide Anion Gap BUN Creatinine Estimated GFR POC Glucose Random Glucose Calcium Phosphorus Magnesium Total Bilirubin AST ALT Alkaline Phosphatase Ammonia 20 Total Protein Albumin Assessment and Plan - Plan 77 year old admitted secondary to acute dementia with hallucinations No improvement in orientation. Hydrochlorothiazide added for blood pressure treatment. Potassium replacements provided today. Continue monitoring potassium levels with BMP in the morning. 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 CT head, CT neck, CXR are unremarkable for any acute findings. Acute delirium dementia hallucinations No significant change Neurology ruling out Lewy body dementia, MRI pending Psychotropic meds held by neurology Patient's affect and memory remain the same Neurology following Hypertension, CKD Hydrochlorothiazide started continue amlodipine Continue Lipitor home dose Diabetes mellitus type 2 Follow blood sugars Insulin sliding scale Diabetic diet DVT prophylaxis Heparin
[2018-05-29] MEDS: Ketorolac Inj 30 MG/ML (IVP) Vial IV.PUSH PRN (11:54)
[2018-05-29] MEDS: Acetaminophen 325 MG Tablet PO PRN (16:44)
[2018-05-30] MEDS: Acetaminophen 325 MG Tablet PO PRN ×3 (04:45→15:57)
[2018-05-30 06:48] LABS: Alanine Aminotransferase 19 U/L (12-78); Albumin 3.1 g/dL (3.4-5.0); Anion Gap 11 meq/L (5-15); Aspartate Aminotransferase 26 U/L (15-37); Blood Urea Nitrogen 13 mg/dL (7-18); Calcium 8.4 mg/dL (8.5-10.1); Carbon Dioxide 22.4 meq/L (21.0-32.0); Chloride 110 meq/L (98-107); Glomerular Filtration Rate 55 mL/min (>89); Glucose,Random 85 mg/dL (74-106); Sodium 143 meq/L (136-145)
[2018-05-30 06:50] LABS: Alkaline Phosphatase 91 U/L (45-117); Total Protein 6.6 g/dL (6.4-8.2)
[2018-05-30] MEDS: Sod Chloride 0.9% Inj 1,000 ML IV.CONT SCH ×2 (07:39→15:49)
[2018-05-30] MEDS: Insulin NovoLOG Aspart Correctional Sugar Inj SQ SCH ×4 (09:24→21:14)
[2018-05-30] MEDS: amLODIPine 10 MG Tablet PO SCH (09:27)
[2018-05-30] MEDS: Heparin - SQ 10,000 UNITS/ML Vial SQ SCH ×2 (09:28→21:11)
[2018-05-30] MEDS: hydroCHLOROthiazide 25 MG Tablet PO SCH (09:28)
--- NOTE | 2018-05-30 10:22 | P.PNIM ---
Subjective Interval history: No significant change compared to previous day. 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 MRI pending. Physical Exam Vital signs: Vital Signs 05/29/18 12:00 05/29/18 16:00 05/29/18 20:00 Temperature 97.3 F L 98.1 F 98.4 F Pulse Rate 82 71 77 Respiratory Rate 18 18 18 Blood Pressure 122/66 163/82 H 150/76 H Pulse Oximetry 98 98 98 05/29/18 23:28 05/30/18 00:00 05/30/18 04:00 Temperature 97.5 F L 97.5 F L Pulse Rate 82 60 79 Respiratory Rate 18 19 Blood Pressure 164/84 H 152/82 H Pulse Oximetry 95 94 L 05/30/18 08:00 Temperature 97.7 F Pulse Rate 72 Respiratory Rate 18 Blood Pressure 165/86 H Pulse Oximetry 96 Intake & Output 05/29/18 05/30/18 05/30/18 18:59 06:59 18:59 Intake Total 1480 / 1480 1780 / 1780 1000 / 1000 Output Total 350 / 350 1000 / 1000 Balance 1130 / 1130 780 / 780 1000 / 1000 Weight 99.6 kg Intake: IV 1000 / 1000 1000 / 1000 1000 / 1000 NS Inj 1,000 ML @ 125 mls/hr IV 1000 / 1000 1000 / 1000 1000 / 1000 .CONT .Q8H [facility] Rx#:[id number] Oral 480 / 480 780 / 780 Output: Urine 350 / 350 1000 / 1000 Narrative: GENERAL: NAD, A&Ox1 HEAD: Normocephalic. NECK: Supple, trachea midline. No lymphadenopathy. EYES: No scleral icterus. No injection or drainage. CARDIOVASCULAR: Regular rate and rhythm without murmurs, gallops, or rubs. RESPIRATORY: Breath sounds equal bilaterally. No accessory muscle use. GASTROINTESTINAL: Abdomen soft, non-tender, nondistended. MUSCULOSKELETAL: No cyanosis, or edema. SKIN: Warm and dry. NEURO: No focal neurological deficits. Results - Labs CBC & Chem 7: 05/29/18 09:25 05/30/18 05:42 Laboratory Results - last 24 hr 05/29/18 05/29/18 05/29/18 11:28 16:20 20:45 Sodium Potassium Chloride Carbon Dioxide Anion Gap BUN Creatinine Estimated GFR POC Glucose 104 108 108 Random Glucose Calcium Total Bilirubin AST ALT Alkaline Phosphatase Total Protein Albumin 05/30/18 05/30/18 05:42 07:49 Sodium 143 Potassium 3.0 L Chloride 110 H Carbon Dioxide 22.4 Anion Gap 11 BUN 13 Creatinine 1.26 Estimated GFR 55 L POC Glucose 88 Random Glucose 85 Calcium 8.4 L Total Bilirubin 0.6 AST 26 ALT 19 Alkaline Phosphatase 91 Total Protein 6.6 D Albumin 3.1 L Assessment and Plan - Plan 77 year old admitted secondary to acute dementia with hallucinations Unimproved orientation. Potassium replacements provided today. Continue monitoring potassium levels with BMP in the morning. 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 CT head, CT neck, CXR are unremarkable for any acute findings. Acute delirium dementia hallucinations No significant change Neurology ruling out Lewy body dementia, MRI pending Psychotropic meds held by neurology Patient's affect and memory remain the same Neurology following Hypertension, CKD Hydrochlorothiazide started continue amlodipine Continue Lipitor home dose Diabetes mellitus type 2 Follow blood sugars Insulin sliding scale Diabetic diet DVT prophylaxis Heparin
[2018-05-31] MEDS: Acetaminophen 325 MG Tablet PO PRN ×2 (01:08→08:57)
[2018-05-31] MEDS: Sod Chloride 0.9% Inj 1,000 ML IV.CONT SCH ×3 (01:08→17:36)
[2018-05-31] MEDS: Temazepam 15 MG Capsule PO PRN (01:08)
[2018-05-31] MEDS: Insulin NovoLOG Aspart Correctional Sugar Inj SQ SCH ×4 (07:59→20:01)
[2018-05-31] MEDS: Heparin - SQ 10,000 UNITS/ML Vial SQ SCH ×2 (08:57→20:00)
[2018-05-31] MEDS: hydroCHLOROthiazide 25 MG Tablet PO SCH (08:58)
[2018-05-31] MEDS: amLODIPine 10 MG Tablet PO SCH (08:58)
--- NOTE | 2018-05-31 12:37 | P.PNIM ---
Subjective Interval history: Slight improvement seen in mentation but I do not feel this patient back to his baseline. Daughter will be contacted today to discuss her review of the patient 's recovery. MRI is not a good option given patient's electronically adjustable shunt. Physical Exam Vital signs: Vital Signs 05/30/18 16:00 05/30/18 19:48 05/30/18 19:49 Temperature 97.7 F Pulse Rate 76 87 Respiratory Rate 18 Blood Pressure 196/94 H Pulse Oximetry 98 97 05/30/18 20:00 05/30/18 23:51 05/31/18 00:00 Temperature 97.3 F L 97.7 F Pulse Rate 83 98 H 88 Respiratory Rate 18 18 Blood Pressure 142/79 H 142/76 H Pulse Oximetry 96 98 05/31/18 04:00 05/31/18 06:00 05/31/18 08:00 Temperature 97.1 F L 97.3 F L Pulse Rate 63 68 77 Respiratory Rate 18 20 Blood Pressure 164/74 H 167/103 H Pulse Oximetry 97 98 05/31/18 10:09 Temperature Pulse Rate Respiratory Rate Blood Pressure Pulse Oximetry 97 Intake & Output 05/30/18 05/31/18 05/31/18 18:59 06:59 18:59 Intake Total 2480 / 2480 1240 / 1240 1000 / 1000 Output Total 250 / 250 1250 / 1250 Balance 2230 / 2230 -10 / -10 1000 / 1000 Weight 100.7 kg Intake: IV 2000 / 1999 1000 / 1000 1000 / 1000 NS Inj 1,000 ML @ 125 mls/hr IV 2000 / 2000 1000 / 1000 1000 / 1000 .CONT .Q8H [facility] Rx#:[id number] Oral 480 / 480 240 / 240 Output: Urine 250 / 250 1250 / 1250 Other: Date of Last Bowel Movement 05/30/18 # Bowel Movements 1 1 Narrative: GENERAL: NAD, A&Ox1 HEAD: Normocephalic. NECK: Supple, trachea midline. No lymphadenopathy. EYES: No scleral icterus. No injection or drainage. CARDIOVASCULAR: Regular rate and rhythm without murmurs, gallops, or rubs. RESPIRATORY: Breath sounds equal bilaterally. No accessory muscle use. GASTROINTESTINAL: Abdomen soft, non-tender, nondistended. MUSCULOSKELETAL: No cyanosis, or edema. SKIN: Warm and dry. NEURO: No focal neurological deficits. Results - Labs CBC & Chem 7: 05/29/18 09:25 05/30/18 05:42 Laboratory Results - last 24 hr 05/30/18 05/30/18 05/31/18 17:15 20:13 07:18 POC Glucose 108 103 119 H 05/31/18 11:24 POC Glucose 137 H Assessment and Plan - Plan 77 year old admitted secondary to acute dementia with hallucinations Slightly improved orientation. Potassium replacements provided today. Continue monitoring potassium levels with BMP in the morning. 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 CT head, CT neck, CXR are unremarkable for any acute findings. Acute delirium dementia hallucinations No significant change Neurology ruling out Lewy body dementia, MRI pending Psychotropic meds held by neurology Patient's affect and memory remain the same Neurology following Hypertension, CKD Hydrochlorothiazide started continue amlodipine Continue Lipitor home dose Diabetes mellitus type 2 Follow blood sugars Insulin sliding scale Diabetic diet DVT prophylaxis Heparin
[2018-05-31] MEDS: Ketorolac Inj 30 MG/ML (IVP) Vial IV.PUSH PRN ×2 (13:32→20:08)
[2018-05-31] MEDS ORDERED: hydrALAZINE 25 MG Tablet PO PRN (18:59)
[2018-06-01] MEDS: Acetaminophen 325 MG Tablet PO PRN ×4 (00:34→23:11)
[2018-06-01] MEDS: Ketorolac Inj 30 MG/ML (IVP) Vial IV.PUSH PRN ×2 (03:49→12:05)
[2018-06-01 08:03] LABS: Baso # (Auto) 0.1 th/mm3 (0.0-0.2); Baso % (Auto) 0.9 % (0.0-2.0); Eos # (Auto) 0.3 th/mm3 (0.0-0.4); Eos % (Auto) 4.3 % (0.0-4.0); Hematocrit 36.7 % (39.0-51.0); Lymph # (Auto) 2.2 th/mm3 (1.0-4.8); Lymph % (Auto) 34.1 % (9.0-44.0); Mean Corpuscular HGB Conc 35.4 % (32.0-36.0); Mean Corpuscular Hemoglobin 31.1 pg (27.0-34.0); Mean Corpuscular Volume 87.9 fL (80.0-100.0); Mean Platelet Volume 8.6 fL (7.0-11.0); Mono # (Auto) 0.6 th/mm3 (0.0-0.9); Mono % (Auto) 8.7 % (0.0-8.0); Neut # (Auto) 3.4 th/mm3 (1.8-7.7); Platelet Count 196 th/mm3 (150-450); Red Blood Count 4.17 mil/mm3 (4.50-5.90); Red Cell Distribution Width 12.7 % (11.6-17.2); White Blood Count 6.5 th/mm3 (4.0-11.0)
[2018-06-01] MEDS: Insulin NovoLOG Aspart Correctional Sugar Inj SQ SCH ×4 (08:04→21:10)
[2018-06-01] MEDS: hydroCHLOROthiazide 25 MG Tablet PO SCH (08:12)
[2018-06-01] MEDS: amLODIPine 10 MG Tablet PO SCH (08:13)
[2018-06-01] MEDS: Heparin - SQ 10,000 UNITS/ML Vial SQ SCH ×2 (08:13→21:09)
[2018-06-01 08:29] LABS: Alanine Aminotransferase 24 U/L (12-78); Albumin 3.3 g/dL (3.4-5.0); Anion Gap 9 meq/L (5-15); Aspartate Aminotransferase 23 U/L (15-37); Blood Urea Nitrogen 11 mg/dL (7-18); Calcium 8.8 mg/dL (8.5-10.1); Carbon Dioxide 24.8 meq/L (21.0-32.0); Chloride 110 meq/L (98-107); Glomerular Filtration Rate 52 mL/min (>89); Glucose,Random 110 mg/dL (74-106); Sodium 144 meq/L (136-145)
[2018-06-01 08:31] LABS: Alkaline Phosphatase 99 U/L (45-117); Total Protein 6.8 g/dL (6.4-8.2)
[2018-06-01] MEDS ORDERED: Potassium Chloride 25 MEQ Effervescent Tablet PO ONE ×2 (11:00→14:41)
--- NOTE | 2018-06-01 13:45 | P.PNIM ---
Subjective Interval history: Potassium level is low this morning 3.0. No new complaints from patient. He is resting comfortably. Mental status is not back to baseline, this is verified with his . Physical Exam Vital signs: Vital Signs 05/31/18 16:00 05/31/18 20:00 06/01/18 00:00 Temperature 97.5 F L 97.6 F 97.9 F Pulse Rate 70 76 71 Respiratory Rate 20 18 18 Blood Pressure 195/106 H 176/96 H 174/91 H Pulse Oximetry 97 99 99 06/01/18 04:00 06/01/18 08:00 Temperature 97.7 F Pulse Rate 68 65 Respiratory Rate 18 Blood Pressure 158/82 H Pulse Oximetry 95 Intake & Output 05/31/18 06/01/18 06/01/18 18:59 06:59 18:59 Intake Total 2120 / 2120 240 / 240 Output Total 2500 / 2500 1000 / 1000 Balance -380 / -380 -760 / -760 Weight 98.3 kg Intake: IV 1999 NS Inj 1,000 ML @ 125 mls/hr IV 1999 .CONT .Q8H [facility] Rx#:[id number] Oral 120 / 120 240 / 240 Output: Urine 2500 / 2500 1000 / 1000 Other: Date of Last Bowel Movement 05/30/18 05/30/18 # Bowel Movements 1 0 Narrative: GENERAL: NAD, A&Ox1 HEAD: Normocephalic. NECK: Supple, trachea midline. No lymphadenopathy. EYES: No scleral icterus. No injection or drainage. CARDIOVASCULAR: Regular rate and rhythm without murmurs, gallops, or rubs. RESPIRATORY: Breath sounds equal bilaterally. No accessory muscle use. GASTROINTESTINAL: Abdomen soft, non-tender, nondistended. MUSCULOSKELETAL: No cyanosis, or edema. SKIN: Warm and dry. NEURO: No focal neurological deficits. Results - Labs CBC & Chem 7: 06/01/18 07:32 06/01/18 07:32 Laboratory Results - last 24 hr 05/31/18 06/01/18 06/01/18 18:26 07:05 07:32 WBC 6.5 RBC 4.17 L Hgb 13.0 Hct 36.7 L MCV 87.9 MCH 31.1 MCHC 35.4 RDW 12.7 Plt Count 196 MPV 8.6 Neut % (Auto) 52.0 Lymph % (Auto) 34.1 [place] % (Auto) 8.7 H Eos % (Auto) 4.3 H Baso % (Auto) 0.9 Neut # (Auto) 3.4 Lymph # (Auto) 2.2 [place] # (Auto) 0.6 Eos # (Auto) 0.3 Baso # (Auto) 0.1 WBC Differential . Differential Comment Auto diff final Sodium Potassium Chloride Carbon Dioxide Anion Gap BUN Creatinine Estimated GFR POC Glucose 118 H 125 H Random Glucose Calcium Total Bilirubin AST ALT Alkaline Phosphatase Total Protein Albumin 06/01/18 06/01/18 07:32 11:40 WBC RBC Hgb Hct MCV MCH MCHC RDW Plt Count MPV Neut % (Auto) Lymph % (Auto) [place] % (Auto) Eos % (Auto) Baso % (Auto) Neut # (Auto) Lymph # (Auto) [place] # (Auto) Eos # (Auto) Baso # (Auto) WBC Differential Differential Comment Sodium 144 Potassium 3.0 L Chloride 110 H Carbon Dioxide 24.8 Anion Gap 9 BUN 11 Creatinine 1.32 H Estimated GFR 52 L POC Glucose 139 H Random Glucose 110 H Calcium 8.8 Total Bilirubin 0.5 AST 23 ALT 24 Alkaline Phosphatase 99 Total Protein 6.8 Albumin 3.3 L Assessment and Plan - Plan 77 year old admitted secondary to acute dementia with hallucinations No improved orientation. Potassium replacements provided today. Continue monitoring potassium levels with BMP in the morning. 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 CT head, CT neck, CXR are unremarkable for any acute findings. Acute delirium dementia hallucinations No significant change Neurology ruling out Lewy body dementia MRI is not an option secondary to patient's specific PIN INSERTER shunt Psychotropic meds held by neurology Patient's affect and memory remain the same Neurology following Hypertension, CKD Hydrochlorothiazide started continue amlodipine Continue Lipitor home dose Diabetes mellitus type 2 Follow blood sugars Insulin sliding scale Diabetic diet DVT prophylaxis Heparin
[2018-06-02] MEDS: Temazepam 15 MG Capsule PO PRN (01:32)
[2018-06-02] MEDS: Insulin NovoLOG Aspart Correctional Sugar Inj SQ SCH ×4 (08:02→20:35)
[2018-06-02] MEDS: Acetaminophen 325 MG Tablet PO PRN ×3 (08:06→15:34)
[2018-06-02] MEDS: amLODIPine 10 MG Tablet PO SCH (08:07)
[2018-06-02] MEDS: hydroCHLOROthiazide 25 MG Tablet PO SCH (08:07)
[2018-06-02] MEDS: Heparin - SQ 10,000 UNITS/ML Vial SQ SCH ×2 (08:08→20:34)
[2018-06-02 09:41] LABS: Baso # (Auto) 0.1 th/mm3 (0.0-0.2); Baso % (Auto) 0.7 % (0.0-2.0); Eos # (Auto) 0.3 th/mm3 (0.0-0.4); Eos % (Auto) 4.9 % (0.0-4.0); Hematocrit 38.7 % (39.0-51.0); Hemoglobin 13.5 gm/dL (13.0-17.0); Lymph # (Auto) 2.5 th/mm3 (1.0-4.8); Lymph % (Auto) 35.4 % (9.0-44.0); Mean Corpuscular HGB Conc 34.8 % (32.0-36.0); Mean Corpuscular Hemoglobin 30.9 pg (27.0-34.0); Mean Corpuscular Volume 88.6 fL (80.0-100.0); Mean Platelet Volume 8.8 fL (7.0-11.0); Mono # (Auto) 0.6 th/mm3 (0.0-0.9); Mono % (Auto) 7.9 % (0.0-8.0); Neut # (Auto) 3.6 th/mm3 (1.8-7.7); Neut % (Auto) 51.1 % (16.0-70.0); Platelet Count 213 th/mm3 (150-450); Red Blood Count 4.36 mil/mm3 (4.50-5.90); Red Cell Distribution Width 13.1 % (11.6-17.2); White Blood Count 7.1 th/mm3 (4.0-11.0)
[2018-06-02 10:02] LABS: Alanine Aminotransferase 23 U/L (12-78); Albumin 3.4 g/dL (3.4-5.0); Alkaline Phosphatase 97 U/L (45-117); Anion Gap 10 meq/L (5-15); Aspartate Aminotransferase 25 U/L (15-37); Blood Urea Nitrogen 10 mg/dL (7-18); Carbon Dioxide 24.3 meq/L (21.0-32.0); Chloride 107 meq/L (98-107); Glomerular Filtration Rate 55 mL/min (>89); Glucose,Random 110 mg/dL (74-106); Magnesium 1.7 mg/dL (1.5-2.5); Phosphorus 3.1 mg/dL (2.5-4.9); Sodium 141 meq/L (136-145); Total Protein 6.9 g/dL (6.4-8.2)
[2018-06-02 10:16] LABS: Potassium 2.8 meq/L (3.5-5.1)
[2018-06-02] MEDS ORDERED: hydrALAZINE 50 MG Tablet PO PRN (10:42)
[2018-06-02] MEDS ORDERED: Potassium Chloride 25 MEQ Effervescent Tablet PO ONE (10:42)
[2018-06-02] MEDS ORDERED: Metoprolol Tartrate 25 MG Tablet PO ONE (10:43)
--- NOTE | 2018-06-02 13:13 | P.PNIM ---
Subjective Interval history: No acute distress today. Patient resting comfortably. Mental status is not improved. Potassium level is low Physical Exam Vital signs: Vital Signs 06/01/18 16:00 06/01/18 20:00 06/02/18 00:00 Temperature 98.1 F 97.9 F 97.4 F L Pulse Rate 77 64 69 Respiratory Rate 18 18 18 Blood Pressure 174/89 H 151/72 H 155/79 H Pulse Oximetry 97 95 97 06/02/18 04:00 06/02/18 08:00 06/02/18 10:15 Temperature 97.5 F L 97.2 F L Pulse Rate 66 68 68 Respiratory Rate 18 18 Blood Pressure 161/74 H 192/91 H 161/83 H Pulse Oximetry 97 97 06/02/18 12:00 Temperature 97.1 F L Pulse Rate 62 Respiratory Rate 18 Blood Pressure 172/91 H Pulse Oximetry 98 Intake & Output 06/01/18 06/02/18 06/02/18 18:59 06:59 18:59 Intake Total 480 / 480 240 / 240 Output Total 725 / 725 450 / 450 Balance -245 / -245 -210 / -210 Weight 96.1 kg Intake: Oral 480 / 480 240 / 240 Output: Urine 725 / 725 450 / 450 Other: # Voids 1 Date of Last Bowel Movement 05/30/18 # Bowel Movements 0 Narrative: GENERAL: NAD, A&Ox1 HEAD: Normocephalic. NECK: Supple, trachea midline. No lymphadenopathy. EYES: No scleral icterus. No injection or drainage. CARDIOVASCULAR: Regular rate and rhythm without murmurs, gallops, or rubs. RESPIRATORY: Breath sounds equal bilaterally. No accessory muscle use. GASTROINTESTINAL: Abdomen soft, non-tender, nondistended. MUSCULOSKELETAL: No cyanosis, or edema. SKIN: Warm and dry. NEURO: No focal neurological deficits. Results - Labs CBC & Chem 7: 06/02/18 08:58 06/02/18 08:58 Laboratory Results - last 24 hr 06/01/18 06/01/18 06/01/18 13:26 16:32 19:50 WBC RBC Hgb Hct MCV MCH MCHC RDW Plt Count MPV Neut % (Auto) Lymph % (Auto) [place] % (Auto) Eos % (Auto) Baso % (Auto) Neut # (Auto) Lymph # (Auto) [place] # (Auto) Eos # (Auto) Baso # (Auto) WBC Differential Differential Comment Sodium Potassium 3.2 L Chloride Carbon Dioxide Anion Gap BUN Creatinine Estimated GFR POC Glucose 146 H 147 H Random Glucose Calcium Phosphorus Magnesium Total Bilirubin AST ALT Alkaline Phosphatase Total Protein Albumin 06/02/18 06/02/18 06/02/18 07:45 08:58 08:58 WBC 7.1 RBC 4.36 L Hgb 13.5 Hct 38.7 L MCV 88.6 MCH 30.9 MCHC 34.8 RDW 13.1 Plt Count 213 MPV 8.8 Neut % (Auto) 51.1 Lymph % (Auto) 35.4 [place] % (Auto) 7.9 Eos % (Auto) 4.9 H Baso % (Auto) 0.7 Neut # (Auto) 3.6 Lymph # (Auto) 2.5 [place] # (Auto) 0.6 Eos # (Auto) 0.3 Baso # (Auto) 0.1 WBC Differential . Differential Comment Auto diff final Sodium 141 Potassium 2.8 L* Chloride 107 Carbon Dioxide 24.3 Anion Gap 10 BUN 10 Creatinine 1.27 Estimated GFR 55 L POC Glucose 127 H Random Glucose 110 H Calcium 9.0 Phosphorus 3.1 Magnesium 1.7 Total Bilirubin 0.5 AST 25 ALT 23 Alkaline Phosphatase 97 Total Protein 6.9 Albumin 3.4 06/02/18 11:12 WBC RBC Hgb Hct MCV MCH MCHC RDW Plt Count MPV Neut % (Auto) Lymph % (Auto) [place] % (Auto) Eos % (Auto) Baso % (Auto) Neut # (Auto) Lymph # (Auto) [place] # (Auto) Eos # (Auto) Baso # (Auto) WBC Differential Differential Comment Sodium Potassium Chloride Carbon Dioxide Anion Gap BUN Creatinine Estimated GFR POC Glucose 113 H Random Glucose Calcium Phosphorus Magnesium Total Bilirubin AST ALT Alkaline Phosphatase Total Protein Albumin Assessment and Plan - Plan 77 year old admitted secondary to acute dementia with hallucinations Potassium replacements provided. Twice daily potassium supplementation is added. No improved orientation. Continue monitoring potassium levels with BMP in the morning. 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 CT head, CT neck, CXR are unremarkable for any acute findings. 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
[2018-06-02] MEDS: Metoprolol Tartrate 25 MG Tablet PO SCH (20:34)
[2018-06-02] MEDS: Potassium Chloride 10 MEQ ER Capsule PO SCH (20:34)
[2018-06-03 06:13] LABS: Baso # (Auto) 0.1 th/mm3 (0.0-0.2); Baso % (Auto) 0.9 % (0.0-2.0); Eos # (Auto) 0.3 th/mm3 (0.0-0.4); Eos % (Auto) 3.3 % (0.0-4.0); Hemoglobin 13.9 gm/dL (13.0-17.0); Lymph # (Auto) 3.3 th/mm3 (1.0-4.8); Lymph % (Auto) 32.2 % (9.0-44.0); Mean Corpuscular HGB Conc 34.8 % (32.0-36.0); Mean Corpuscular Hemoglobin 30.9 pg (27.0-34.0); Mean Corpuscular Volume 88.8 fL (80.0-100.0); Mean Platelet Volume 8.9 fL (7.0-11.0); Mono # (Auto) 0.8 th/mm3 (0.0-0.9); Mono % (Auto) 7.4 % (0.0-8.0); Neut # (Auto) 5.7 th/mm3 (1.8-7.7); Neut % (Auto) 56.2 % (16.0-70.0); Platelet Count 228 th/mm3 (150-450); Red Blood Count 4.51 mil/mm3 (4.50-5.90); Red Cell Distribution Width 12.8 % (11.6-17.2); White Blood Count 10.1 th/mm3 (4.0-11.0)
[2018-06-03 06:39] LABS: Alanine Aminotransferase 29 U/L (12-78); Albumin 3.6 g/dL (3.4-5.0); Anion Gap 10 meq/L (5-15); Aspartate Aminotransferase 27 U/L (15-37); Blood Urea Nitrogen 13 mg/dL (7-18); Calcium 9.1 mg/dL (8.5-10.1); Chloride 108 meq/L (98-107); Glomerular Filtration Rate 48 mL/min (>89); Glucose,Random 110 mg/dL (74-106); Potassium 3.2 meq/L (3.5-5.1); Sodium 142 meq/L (136-145)
[2018-06-03 06:41] LABS: Alkaline Phosphatase 105 U/L (45-117); Total Protein 7.4 g/dL (6.4-8.2)
[2018-06-03] MEDS: Insulin NovoLOG Aspart Correctional Sugar Inj SQ SCH ×4 (07:43→20:48)
[2018-06-03] MEDS: Potassium Chloride 10 MEQ ER Capsule PO SCH ×2 (08:28→20:45)
[2018-06-03] MEDS: Metoprolol Tartrate 25 MG Tablet PO SCH ×2 (08:29→20:46)
[2018-06-03] MEDS: amLODIPine 10 MG Tablet PO SCH (08:30)
[2018-06-03] MEDS: Heparin - SQ 10,000 UNITS/ML Vial SQ SCH ×2 (08:30→20:45)
[2018-06-03] MEDS ORDERED: Potassium Chloride 25 MEQ Effervescent Tablet PO ONE (09:28)
--- NOTE | 2018-06-03 12:58 | P.PNIM ---
Subjective Interval history: Unimproved altered mental status. Potassium levels remain low. No new complaints. Physical Exam Vital signs: Vital Signs 06/02/18 14:57 06/02/18 16:00 06/02/18 19:53 Temperature 97.7 F 98.0 F Pulse Rate 67 72 70 Respiratory Rate 18 18 Blood Pressure 155/73 H 176/88 H 154/84 H Pulse Oximetry 98 95 06/02/18 20:00 06/03/18 00:00 06/03/18 03:50 Temperature 98.8 F 98 F Pulse Rate 73 63 73 Respiratory Rate 18 17 Blood Pressure 154/82 H 160/73 H Pulse Oximetry 97 96 06/03/18 04:00 06/03/18 08:00 06/03/18 12:00 Temperature 97.9 F 97.5 F L Pulse Rate 79 81 66 Respiratory Rate 16 18 Blood Pressure 162/98 H 134/73 Pulse Oximetry 95 97 Intake & Output 06/02/18 06/03/18 06/03/18 18:59 06:59 18:59 Intake Total 720 / 720 Output Total 700 / 700 850 / 850 Balance -850 / -850 Weight 95.8 kg Intake: Oral 720 / 720 Output: Urine 700 / 700 850 / 850 Other: # Bowel Movements 1 Narrative: GENERAL: NAD, A&Ox1 HEAD: Normocephalic. NECK: Supple, trachea midline. No lymphadenopathy. EYES: No scleral icterus. No injection or drainage. CARDIOVASCULAR: Regular rate and rhythm without murmurs, gallops, or rubs. RESPIRATORY: Breath sounds equal bilaterally. No accessory muscle use. GASTROINTESTINAL: Abdomen soft, non-tender, nondistended. MUSCULOSKELETAL: No cyanosis, or edema. SKIN: Warm and dry. NEURO: No focal neurological deficits. Results - Labs CBC & Chem 7: 06/03/18 05:35 06/03/18 05:35 Laboratory Results - last 24 hr 06/02/18 06/02/18 06/02/18 16:54 17:20 20:18 WBC RBC Hgb Hct MCV MCH MCHC RDW Plt Count MPV Neut % (Auto) Lymph % (Auto) [place] % (Auto) Eos % (Auto) Baso % (Auto) Neut # (Auto) Lymph # (Auto) [place] # (Auto) Eos # (Auto) Baso # (Auto) WBC Differential Differential Comment Sodium Potassium 3.4 L Chloride Carbon Dioxide Anion Gap BUN Creatinine Estimated GFR POC Glucose 137 H 166 H Random Glucose Calcium Total Bilirubin AST ALT Alkaline Phosphatase Total Protein Albumin 06/03/18 06/03/18 06/03/18 05:35 05:35 07:36 WBC 10.1 RBC 4.51 Hgb 13.9 Hct 40.0 MCV 88.8 MCH 30.9 MCHC 34.8 RDW 12.8 Plt Count 228 MPV 8.9 Neut % (Auto) 56.2 Lymph % (Auto) 32.2 [place] % (Auto) 7.4 Eos % (Auto) 3.3 Baso % (Auto) 0.9 Neut # (Auto) 5.7 Lymph # (Auto) 3.3 [place] # (Auto) 0.8 Eos # (Auto) 0.3 Baso # (Auto) 0.1 WBC Differential . Differential Comment Auto diff final Sodium 142 Potassium 3.2 L Chloride 108 H Carbon Dioxide 24.0 Anion Gap 10 BUN 13 Creatinine 1.43 H Estimated GFR 48 L POC Glucose 111 H Random Glucose 110 H Calcium 9.1 Total Bilirubin 0.5 AST 27 ALT 29 Alkaline Phosphatase 105 Total Protein 7.4 Albumin 3.6 06/03/18 12:39 WBC RBC Hgb Hct MCV MCH MCHC RDW Plt Count MPV Neut % (Auto) Lymph % (Auto) [place] % (Auto) Eos % (Auto) Baso % (Auto) Neut # (Auto) Lymph # (Auto) [place] # (Auto) Eos # (Auto) Baso # (Auto) WBC Differential Differential Comment Sodium Potassium Chloride Carbon Dioxide Anion Gap BUN Creatinine Estimated GFR POC Glucose 129 H Random Glucose Calcium Total Bilirubin AST ALT Alkaline Phosphatase Total Protein Albumin Assessment and Plan - Plan 77 year old admitted secondary to acute dementia with hallucinations Potassium should be stabilized prior to consideration for discharge. Etiology for confusion uncertain. Workup limited by the patient's inability to obtain MRI. Potassium replacements provided. Twice daily potassium supplementation is continued. No improved orientation. Continue monitoring potassium levels with BMP in the morning. 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 CT head, CT neck, CXR are unremarkable for any acute findings. Acute delirium dementia hallucinations No significant change Neurology ruling out Lewy body dementia MRI is not an option secondary to patient's specific MARKETING ADMIN shunt Psychotropic meds held by neurology Patient's affect and memory remain the same Neurology following Hypokalemia Continue monitoring Continue supplementations as needed Twice daily potassium supplementation added to try to achieve more stability Hypertension, CKD Hydrochlorothiazide started continue amlodipine Continue Lipitor home dose Diabetes mellitus type 2 Follow blood sugars Insulin sliding scale Diabetic diet DVT prophylaxis Heparin
[2018-06-03] MEDS: Sod Chloride 0.9% Inj 1,000 ML IV.CONT SCH (16:03)
[2018-06-04] MEDS: Sod Chloride 0.9% Inj 1,000 ML IV.CONT SCH ×2 (03:48→15:16)
--- NOTE | 2018-06-04 08:59 | ECG ---
Date Performed: 06/03/2018 Time Performed: 12:26:16 PTAGE: 77 years EKG: Sinus rhythm . Left axis deviation Extensive ST-T changes are nonspecific Borderline ECG PREVIOUS TRACING : 05/24/2018 00.04 DOCTOR: Marcelo Wright Interpretating Date/Time 06/04/2018 08:58:16
[2018-06-04] MEDS: Insulin NovoLOG Aspart Correctional Sugar Inj SQ SCH ×4 (09:11→20:44)
[2018-06-04] MEDS: amLODIPine 10 MG Tablet PO SCH (09:12)
[2018-06-04] MEDS: Potassium Chloride 10 MEQ ER Capsule PO SCH ×2 (09:14→20:43)
[2018-06-04] MEDS: Metoprolol Tartrate 25 MG Tablet PO SCH ×2 (09:14→20:43)
[2018-06-04] MEDS: Heparin - SQ 10,000 UNITS/ML Vial SQ SCH ×2 (09:14→20:44)
--- NOTE | 2018-06-04 18:24 | CT ---
EXAM DATE: 06/04/2018 6:11 PM EDT AGE/SEX: 77 years / Male INDICATIONS: Altered mental status. CLINICAL DATA: This is the patient's initial encounter. Patient reports that signs and symptoms have been present for 1 day and indicates a pain score of Nonresponsive. MEDICAL/SURGICAL HISTORY: Dementia. Hypertension. traumatic brain injury Cholecystectomy. Tonsil lectomy. shunt placement RADIATION DOSE: 48.25 CTDI (mGy) [place] [facility] [place]. . TECHNIQUE: CT of the head without contrast. Using automated exposure control and adjustment of the mA and/or kV according to patient size, radiation dose was kept as low as reasonably achievable to ob tain optimal diagnostic quality images. DICOM format image data is available electronically for revi ew and comparison. FINDINGS: Cerebrum: The ventricles are upper limits of normal for age. Right parietal ventriculostomy catheter with tip in the right lateral ventricle again noted. No evidence of midline shift, mass lesion, hemo rrhage or acute infarction. No extraaxial fluid collections are seen. Posterior Fossa: The cerebellum and brainstem are intact. The 4th ventricle is midline. The cerebe llopontine angle is unremarkable. Extracranial: An apparent small right high parietal scalp contusion. Skull: The calvaria is intact. No evidence of skull fracture. CONCLUSION: 1. No bleed or other acute intracranial abnormality. 2. An apparent recent small right high parietal scalp contusion. No skull fracture. 3. Shunted. Borderline to mild ventriculomegaly similar to before. . Electronically signed by: Gregorio Hughes MD 06/04/2018 6:22 PM EDT
[2018-06-05] MEDS: Sod Chloride 0.9% Inj 1,000 ML IV.CONT SCH ×2 (02:58→14:46)
[2018-06-05] MEDS: Insulin NovoLOG Aspart Correctional Sugar Inj SQ SCH ×4 (07:47→20:55)
[2018-06-05] MEDS: Potassium Chloride 10 MEQ ER Capsule PO SCH ×2 (08:31→20:56)
[2018-06-05] MEDS: Metoprolol Tartrate 25 MG Tablet PO SCH ×2 (08:31→20:56)
[2018-06-05] MEDS: amLODIPine 10 MG Tablet PO SCH (08:32)
[2018-06-05] MEDS: Heparin - SQ 10,000 UNITS/ML Vial SQ SCH ×2 (08:32→20:55)
--- NOTE | 2018-06-05 14:59 | P.PNIM ---
Subjective Interval history: Nursing denies any deterioration since last night. Patient himself is able to demonstrate orientation to place person and only partially to time, gets the month wrong but gets the right. Is able to demonstrate partial insight that he was admitted to the hospital because something was wrong. Physical Exam Vital signs: Vital Signs 06/04/18 16:00 06/04/18 19:50 06/04/18 20:00 Temperature 97.8 F 98.1 F Pulse Rate 69 70 70 Respiratory Rate 20 18 Blood Pressure 146/77 H 151/72 H Pulse Oximetry 95 95 06/04/18 23:48 06/05/18 00:00 06/05/18 03:59 Temperature 97.3 F L Pulse Rate 62 63 71 Respiratory Rate 18 Blood Pressure 144/79 H Pulse Oximetry 98 06/05/18 04:00 06/05/18 08:00 06/05/18 12:00 Temperature 97.2 F L 97.4 F L Pulse Rate 66 65 73 Respiratory Rate 18 20 Blood Pressure 158/80 H 166/74 H Pulse Oximetry 96 95 Intake & Output 06/04/18 06/05/18 06/05/18 18:59 06:59 18:59 Intake Total 1279 / 1279 1783 / 1783 697 / 697 Output Total 600 / 600 800 / 800 Balance 679 / 679 983 / 983 697 / 697 Weight 95.4 kg Intake: IV 799 / 799 1303 / 1303 697 / 697 NS Inj 1,000 ML @ 84 mls/hr IV. 799 / 799 1303 / 1303 697 / 697 CONT .[id number] ON LICENSE OF [facility] Rx#:[id number] Oral 480 / 480 480 / 480 Output: Urine 600 / 600 800 / 800 Other: Date of Last Bowel Movement 05/30/18 05/30/18 # Bowel Movements 0 0 Narrative: Clear lungs bilaterally, unlabored breathing Awake and alert Maintains good eye contact, pleasant mood and demeanor Oriented to person and place, partially to time see - subject line Results - Labs CBC & Chem 7: 06/03/18 05:35 06/03/18 13:30 Laboratory Results - last 24 hr 06/04/18 06/04/18 06/05/18 16:51 20:42 07:43 POC Glucose 128 H 142 H 133 H 06/05/18 12:30 POC Glucose 161 H - Imaging Impressions Head CT 06/04/18 00:00 CONCLUSION: 1. No bleed or other acute intracranial abnormality. 2. An apparent recent small right high parietal scalp contusion. No skull fracture. 3. Shunted. Borderline to mild ventriculomegaly similar to before. . 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 CT head, CT neck, CXR are unremarkable for any acute findings. Acute delirium -Resolved dementia hallucinations B12, TSH within normal limits Unable to obtain MRI due to shunt. Repeat head CT scan being ordered to rule out any acute infarct that may have occurred. Appreciate neurology recommendations of starting Namenda added to galantamine, suspect possible Lewy body dementia given the patient's memory lapse and history of hallucinations Hypokalemia Resolved, continue supplementation Hypertension, CKD Hydrochlorothiazide continue amlodipine Continue Lipitor home dose Diabetes mellitus type 2 Follow blood sugars Insulin sliding scale Diabetic diet DVT prophylaxis Heparin
--- NOTE | 2018-06-05 15:11 | P.PNIM ---
Subjective Interval history: Nursing denies any deterioration since last night. Patient himself has no new complaints. Physical Exam Vital signs: Vital Signs 06/04/18 16:00 06/04/18 19:50 06/04/18 20:00 Temperature 97.8 F 98.1 F Pulse Rate 69 70 70 Respiratory Rate 20 18 Blood Pressure 146/77 H 151/72 H Pulse Oximetry 95 95 06/04/18 23:48 06/05/18 00:00 06/05/18 03:59 Temperature 97.3 F L Pulse Rate 62 63 71 Respiratory Rate 18 Blood Pressure 144/79 H Pulse Oximetry 98 06/05/18 04:00 06/05/18 08:00 06/05/18 12:00 Temperature 97.2 F L 97.4 F L Pulse Rate 66 65 73 Respiratory Rate 18 20 Blood Pressure 158/80 H 166/74 H Pulse Oximetry 96 95 Intake & Output 06/04/18 06/05/18 06/05/18 18:59 06:59 18:59 Intake Total 1279 / 1279 1783 / 1783 697 / 697 Output Total 600 / 600 800 / 800 Balance 679 / 679 983 / 983 697 / 697 Weight 95.4 kg Intake: IV 799 / 799 1303 / 1303 697 / 697 NS Inj 1,000 ML @ 84 mls/hr IV. 799 / 799 1303 / 1303 697 / 697 CONT .[id number] [facility] Rx#:[id number] Oral 480 / 480 480 / 480 Output: Urine 600 / 600 800 / 800 Other: Date of Last Bowel Movement 05/30/18 05/30/18 # Bowel Movements 0 0 Narrative: Oriented to person, place, thinks it is November, but gets the year correct. Has intact insight that he had a contusion injury which he indeed does. No slurred speech, no facial droop Clear lungs bilaterally 2/5 lower extremity straight leg raising strength BL Results - Labs CBC & Chem 7: 06/03/18 05:35 06/03/18 13:30 Laboratory Results - last 24 hr 06/04/18 06/04/18 06/05/18 16:51 20:42 07:43 POC Glucose 128 H 142 H 133 H 06/05/18 12:30 POC Glucose 161 H - Imaging Impressions Head CT 06/04/18 00:00 CONCLUSION: 1. No bleed or other acute intracranial abnormality. 2. An apparent recent small right high parietal scalp contusion. No skull fracture. 3. Shunted. Borderline to mild ventriculomegaly similar to before. . 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 CT head, CT neck, CXR are unremarkable for any acute findings. Acute delirium -Resolved dementia hallucinations B12, TSH within normal limits Unable to obtain MRI due to shunt. Repeat head CT scan is negative for any acute infarct. Appreciate neurology recommendations of starting Namenda added to galantamine, suspect possible Lewy body dementia given the patient's memory lapse and history of hallucinations Hypokalemia Resolved, continue supplementation Hypertension, CKD Hydrochlorothiazide continue amlodipine Continue Lipitor home dose Diabetes mellitus type 2 Follow blood sugars Insulin sliding scale Diabetic diet DVT prophylaxis Heparin Discharge Planning: Pending SNF placement. Patient gave permission to contact family to update them on his health status. Unable to contact by phone, no pickup, no voicemail option. Contacted daughter, updated daughter on working diagnosis and plan of care. Very appreciative of the phone call.
[2018-06-06] MEDS: Sod Chloride 0.9% Inj 1,000 ML IV.CONT SCH ×2 (02:57→18:29)
[2018-06-06] MEDS: Insulin NovoLOG Aspart Correctional Sugar Inj SQ SCH ×4 (08:25→20:33)
[2018-06-06] MEDS: Heparin - SQ 10,000 UNITS/ML Vial SQ SCH ×2 (10:28→20:30)
[2018-06-06] MEDS: Metoprolol Tartrate 25 MG Tablet PO SCH ×2 (10:29→20:29)
[2018-06-06] MEDS: Potassium Chloride 10 MEQ ER Capsule PO SCH ×2 (10:29→20:30)
[2018-06-06] MEDS: amLODIPine 10 MG Tablet PO SCH (10:30)
--- NOTE | 2018-06-06 18:24 | P.PNIM ---
Subjective Interval history: Nursing denies any deterioration since last night. Pleasant demeanor, no facial droop, no slurred speech., Interactive. Is happy that I spoke with his family. Physical Exam Vital signs: Vital Signs 06/05/18 20:00 06/06/18 00:00 06/06/18 04:00 Temperature 97.2 F L 97.8 F Pulse Rate 75 68 76 Respiratory Rate 18 18 Blood Pressure 162/86 H 147/84 H Pulse Oximetry 99 96 06/06/18 08:00 06/06/18 12:00 06/06/18 16:00 Temperature 97.1 F L 98.0 F 97.4 F L Pulse Rate 87 72 79 Respiratory Rate 18 20 18 Blood Pressure 172/93 H 148/77 H 138/73 Pulse Oximetry 98 95 Intake & Output 06/05/18 06/06/18 06/06/18 18:59 06:59 18:59 Intake Total 1177 / 1177 1517 / 1517 240 / 240 Output Total 625 / 625 1000 / 1000 500 / 500 Balance 552 / 552 517 / 517 -260 / -260 Weight 96 kg Intake: IV 697 / 697 1277 / 1277 NS Inj 1,000 ML @ 84 mls/hr IV. 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 CT head, CT neck, CXR are unremarkable for any acute findings. dementia hallucinations B12, TSH within normal limits Unable to obtain MRI due to shunt. Repeat head CT scan is negative for any acute infarct. Appreciate neurology recommendations of starting Namenda added to galantamine, suspect possible Lewy body dementia given the patient's memory lapse and history of hallucinations Hypertension, CKD Hydrochlorothiazide continue amlodipine Continue Lipitor home dose Diabetes mellitus type 2 Follow blood sugars Insulin sliding scale Diabetic diet DVT prophylaxis Heparin Discharge Planning: Pending SNF placement.
[2018-06-06] MEDS: Acetaminophen 325 MG Tablet PO PRN (18:36)
[2018-06-07] MEDS: Acetaminophen 325 MG Tablet PO PRN (02:07)
[2018-06-07] MEDS: Sod Chloride 0.9% Inj 1,000 ML IV.CONT SCH (06:09)
[2018-06-07 07:02] VITALS: RESP 16
[2018-06-07] MEDS: Metoprolol Tartrate 25 MG Tablet PO SCH ×2 (08:47→20:31)
[2018-06-07] MEDS: Potassium Chloride 10 MEQ ER Capsule PO SCH ×2 (08:47→20:32)
[2018-06-07] MEDS: Heparin - SQ 10,000 UNITS/ML Vial SQ SCH ×2 (08:47→20:32)
[2018-06-07] MEDS: amLODIPine 10 MG Tablet PO SCH (08:47)
[2018-06-07 14:55] VITALS: TEMP 97.6
[2018-06-07 16:51] VITALS: BP 159/88; PULSE 81; O2SAT 97
[2018-06-07] MEDS: Insulin NovoLOG Aspart Correctional Sugar Inj SQ SCH ×4 (16:52→20:44)
== END 2018-06-07 20:41 ==
LOC: NEDA 17:04 → NEPE 17:04 → NEDH 05-24 07:02 → HCIS 05-24 07:35 → N04 05-24 18:44
PROVIDERS: ADMIT Hospitalist; ATTEND Hospitalist